=== PATIENT | male | born 1940 | race Caucasian/White ===

== ENCOUNTER 2018-01-28 11:07 | Observation (INO) | payer MEDICARE ==
[2018-01-28] MEDS ORDERED: Sodium Chloride 0.9% 500 ML 500 ML IV SCH (12:15)
[2018-01-28 14:02] LABS: Hematocrit 42.4 % (42-50); Hemoglobin 14.3 gm/dl (12.5-18.0); Mean Cell Volume 92.2 fl (78-100); Mean Corpuscular Hemoglobin 31.1 pg (26-32); Mean Corpuscular Hgb Concent. 33.7 g/dl (32-36); Mean Platelet Volume 11.7 fl (6-9.5); Platelet Count 246 K/mm3 (150-450); Red Cell Distribution Width 14.3 % (11.5-14.0); White Blood Count 8.3 K/mm3 (4.0-10.5)
[2018-01-28] MEDS: Glucophage 500 MG PO SCH (14:20)
[2018-01-28] MEDS: Zestril 5 MG PO SCH (14:20)
--- NOTE | 2018-01-28 15:30 | XRAY ---
Indication: Short of breath. Comparison: August 21, 2014. PA/lateral chest demonstrates new small bibasilar effusions, left greater than right with adjacent infiltrates versus atelectasis. Heart is not enlarged. Bony thorax intact again with minimal degenerative changes.
[2018-01-28 15:36] LABS: ALBUMIN 4.4 g/dL (3.5-5.0); ANION GAP 16.8 MEQ/L (5-15); BILIRUBIN,TOTAL 0.8 mg/dL (0.2-1.3); Calcium 9.3 mg/dL (8.4-10.2); Creatinine 1 1.29 mg/dL (0.66-1.25); Potassium 4.7 mmol/L (3.5-5.1); Total Protein 7.1 g/dL (6.3-8.2)
[2018-01-28] MEDS: Lasix 40 MG/4 ML IV SCH (16:15)
[2018-01-29] MEDS: Lasix 40 MG/4 ML IV SCH (05:02)
[2018-01-29 06:57] LABS: Risk Ratio 5.3
[2018-01-29 07:27] VITALS: O2SAT 97
[2018-01-29] MEDS ORDERED: Toprol-Xl 25MG Tablets PO ONE (09:36)
--- NOTE | 2018-01-29 09:43 | PCM.NOTE ---
Date and Time: 01/29/18937 Subjective Assessment: doing better, no chest pain Shortness of breath is better - Review of Systems Constitutional: No Fever, No Chills Eyes: No Symptoms Ears, Nose, & Throat: No Symptoms Respiratory: No Cough, No Short Of Breath Cardiac: No Chest Pain, No Edema, No Syncope Abdominal/Gastrointestinal: No Abdominal Pain, No Nausea, No Vomiting, No Diarrhea Genitourinary Symptoms: No Dysuria Musculoskeletal: No Back Pain, No Neck Pain Skin: No Rash Neurological: No Dizziness, No Focal Weakness, No Sensory Changes Psychological: No Symptoms Endocrine: No Symptoms Hematologic/Lymphatic: No Symptoms Immunological/Allergic: No Symptoms Objective Exam General Appearance: no apparent distress, alert Neurologic Exam: alert, oriented x 3, cooperative, normal mood/affect, nml cerebellar function, sensation nml, No motor deficits Skin Exam: normal color, warm, dry Eye Exam: PERRL, EOMI, eyes nml inspection Ears, Nose, Throat Exam: normal ENT inspection, pharynx normal, moist mucous membranes Neck Exam: normal inspection, non-tender, supple, full range of motion Respiratory Exam: normal breath sounds, lungs clear, No respiratory distress Cardiovascular Exam: regular rate/rhythm, normal heart sounds, No pulse deficit Gastrointestinal/Abdomen Exam: soft, No tenderness, No mass Extremity Exam: normal inspection, normal range of motion Back Exam: normal inspection, normal range of motion, No CVA tenderness, No vertebral tenderness Male Genitalia Exam: deferred Rectal Exam: deferred OBJECTIVE DATA Vital Signs: Vital Signs - 24 hr Temp Pulse Resp BP Pulse Ox 01/29/18 07:25 97.8 F 64 20 125/59 97 01/29/18 04:30 97.6 F 74 20 120/74 96 01/28/18 23:49 98.1 F 95 H 18 126/76 97 01/28/18 19:18 97.5 F 86 18 138/67 96 01/28/18 16:00 98.2 F 110 H 24 160/77 95 01/28/18 12:06 92 L 01/28/18 11:43 95.7 F 109 H 20 148/97 91 L Pain Assessment - Last Documented Pain Scale Used 0-10 Pain Scale Intake and Output: Intake & Output 01/26/18 01/27/18 01/28/18 01/29/18 11:59 11:59 11:59 11:59 Intake Total 1649 Output Total 1600 Balance 49 Weight 85.6 kg 83.2 kg Lab Results: Accuchecks Date 01/29/18 Date 01/28/18 Date 01/28/18 Date 01/28/18 Time 07:30 Time 21:30 Time 16:30 Time 12:00 Accucheck Value: 141 Accucheck Value: 121 Accucheck Value: 173 Accucheck Value: 140 Lab Results-Last 24 Hours 01/28/18 01/28/18 01/28/18 Range/Units 12:15 12:30 12:55 WBC 8.3 (4.0-10.5) K/mm3 RBC 4.60 (4.1-5.6) M/mm3 Hgb 14.3 (12.5-18.0) gm/dl Hct 42.4 (42-50) % MCV 92.2 (78-100) fl MCH 31.1 (26-32) pg MCHC 33.7 (32-36) g/dl RDW 14.3 H (11.5-14.0) % Plt Count 246 (150-450) K/mm3 MPV 11.7 H (6-9.5) fl Sodium (137-145) mmol/L Potassium (3.5-5.1) mmol/L Chloride (98-107) mmol/L Carbon Dioxide (22-30) mmol/L Anion Gap (5-15) MEQ/L BUN (9-20) mg/dL Creatinine (0.66-1.25) mg/dL Estimated GFR ML/MIN Glucose (74-106) mg/dL Hemoglobin A1c 5.88 (4.5-6.0) % Calcium (8.4-10.2) mg/dL Total Bilirubin (0.2-1.3) mg/dL AST (17-59) U/L ALT (0-50) U/L Alkaline Phosphatase (38-126) U/L Troponin I (0.000-0.034) ng/mL NT-Pro-B Natriuret Pep 8020 H (0-1800) pg/mL Serum Total Protein (6.3-8.2) g/dL Albumin (3.5-5.0) g/dL Triglycerides (30-150) mg/dL Cholesterol (50-200) mg/dL LDL Cholesterol (30-100) mg/dL HDL Cholesterol (40-60) mg/dL Heart Disease Risk Ratio 01/28/18 01/28/18 01/28/18 Range/Units 13:01 13:26 16:15 WBC (4.0-10.5) K/mm3 RBC (4.1-5.6) M/mm3 Hgb (12.5-18.0) gm/dl Hct (42-50) % MCV (78-100) fl MCH (26-32) pg MCHC (32-36) g/dl RDW (11.5-14.0) % Plt Count (150-450) K/mm3 MPV (6-9.5) fl Sodium 135 L (137-145) mmol/L Potassium 4.7 (3.5-5.1) mmol/L Chloride 100 (98-107) mmol/L Carbon Dioxide 24 (22-30) mmol/L Anion Gap 16.8 H (5-15) MEQ/L BUN 23 H (9-20) mg/dL Creatinine 1.29 H (0.66-1.25) mg/dL Estimated GFR 57.3 ML/MIN Glucose 164 H (74-106) mg/dL Hemoglobin A1c (4.5-6.0) % Calcium 9.3 (8.4-10.2) mg/dL Total Bilirubin 0.80 (0.2-1.3) mg/dL AST 31 (17-59) U/L ALT 17 (0-50) U/L Alkaline Phosphatase 75 (38-126) U/L Troponin I 0.040 H* 0.046 H* (0.000-0.034) ng/mL NT-Pro-B Natriuret Pep (0-1800) pg/mL Serum Total Protein 7.1 (6.3-8.2) g/dL Albumin 4.4 (3.5-5.0) g/dL Triglycerides (30-150) mg/dL Cholesterol (50-200) mg/dL LDL Cholesterol (30-100) mg/dL HDL Cholesterol (40-60) mg/dL Heart Disease Risk Ratio 01/28/18 01/29/18 01/29/18 Range/Units 19:10 05:45 05:45 WBC (4.0-10.5) K/mm3 RBC (4.1-5.6) M/mm3 Hgb (12.5-18.0) gm/dl Hct (42-50) % MCV (78-100) fl MCH (26-32) pg MCHC (32-36) g/dl RDW (11.5-14.0) % Plt Count (150-450) K/mm3 MPV (6-9.5) fl Sodium (137-145) mmol/L Potassium (3.5-5.1) mmol/L Chloride (98-107) mmol/L Carbon Dioxide (22-30) mmol/L Anion Gap (5-15) MEQ/L BUN (9-20) mg/dL Creatinine (0.66-1.25) mg/dL Estimated GFR ML/MIN Glucose (74-106) mg/dL Hemoglobin A1c (4.5-6.0) % Calcium (8.4-10.2) mg/dL Total Bilirubin (0.2-1.3) mg/dL AST (17-59) U/L ALT (0-50) U/L Alkaline Phosphatase (38-126) U/L Troponin I 0.064 H* 0.055 H* (0.000-0.034) ng/mL NT-Pro-B Natriuret Pep (0-1800) pg/mL Serum Total Protein (6.3-8.2) g/dL Albumin (3.5-5.0) g/dL Triglycerides 83 (30-150) mg/dL Cholesterol 186 (50-200) mg/dL LDL Cholesterol 134 H (30-100) mg/dL HDL Cholesterol 35 L (40-60) mg/dL Heart Disease Risk Ratio 5.3 Radiology Exams: Radiology Procedures Category Date Time Status CHEST 2 VIEWS (PA AND LAT) Urgent Exams 01/28/18 15:23 Completed ECHO W/2D AND DOPPLER [US] Routine Exams 01/28/18 12:07 Taken RAD/CHEST 2 VIEWS (PA AND LAT) Indication: Short of breath. Comparison: August 21, 2014. PA/lateral chest demonstrates new small bibasilar effusions, left greater than right with adjacent infiltrates versus atelectasis. Heart is not enlarged. Bony thorax intact again with minimal degenerative changes Assessment/Plan (1) Non-ST elevated myocardial infarction (non-STEMI) Current Visit: Yes Status: Acute Assessment & Plan: troponin value in downward trend. no chest pain, will continue JULIA inhibitor, lasix and beta nita and plavix Code(s): I21.4 - NON-ST ELEVATION (NSTEMI) MYOCARDIAL INFARCTION (2) Acute congestive heart failure with left ventricular diastolic dysfunction Current Visit: Yes Status: Acute Assessment & Plan: continue lasix and JULIA inhibitor Code(s): I50.31 - ACUTE DIASTOLIC (CONGESTIVE) HEART FAILURE (3) Type 2 diabetes mellitus Current Visit: Yes Status: Chronic Qualifiers: Diabetes mellitus fdc insulin use: without fdc use Diabetes mellitus complication status: with kidney complications Diabetes mellitus complication detail: with chronic kidney disease Chronic kidney disease stage : stage 2 (mild) Qualified Code(s): E11.22 - Type 2 diabetes mellitus with diabetic chronic kidney disease; N18.2 - Chronic kidney disease, stage 2 (mild) (4) Renal insufficiency Current Visit: Yes Status: Acute
[2018-01-29] MEDS: Zestril 5 MG PO SCH (09:49)
[2018-01-29] MEDS ORDERED: Ecotrin 325 MG PO SCH (10:00)
[2018-01-29] MEDS ORDERED: PLAVIX 75 MG Tablet PO SCH (10:00)
[2018-01-29 12:20] VITALS: BP 110/51; PULSE 75
--- NOTE | 2018-01-29 12:24 | PCM.DS ---
Discharge Summary Date of Admission: 01/28/18 11:43 Admitting Physician: MARU SPRING Primary Care Provider: MARU SPRING Allergies Allergies codeine Adverse Reaction (Verified 01/28/18 12:00) unsteady gait Hospital Summary - Hospital Course Hospital Course: Last Vital Signs Temp 97.8 F 01/29/18 07:25 Pulse 64 01/29/18 07:25 Resp 20 01/29/18 07:25 BP 125/59 01/29/18 07:25 Pulse Ox 97 01/29/18 12:06 Allergies codeine Adverse Reaction (Verified 01/28/18 12:00) unsteady gait Active Medications Aspirin (Ecotrin 325 Mg) 325 mg PO DAILY CARLOS Stop: 02/28/18 09:59 Last Admin: 01/29/18 09:49 Dose: 325 mg Clopidogrel Bisulfate (Plavix 75 Mg Tablet) 75 mg PO DAILY CARLOS Stop: 02/28/18 09:59 Last Admin: 01/29/18 09:49 Dose: 75 mg Furosemide (Lasix 40 Mg/4 Ml) 40 mg IV Q12H CARLOS Stop: 02/27/18 15:59 Last Admin: 01/29/18 05:02 Dose: 40 mg Lisinopril (Zestril 5 Mg) 5 mg PO DAILY CARLOS Stop: 02/27/18 13:59 Last Admin: 01/29/18 09:49 Dose: 5 mg Metformin HCl (Glucophage 500 Mg) 500 mg PO BREAKFAST CARLOS Stop: 02/27/18 13:59 Last Admin: 01/28/18 14:20 Dose: 500 mg Metoprolol Succinate (Toprol-Xl 25mg Tablets) 25 mg PO DAILY CARLOS Stop: 03/01/18 09:59 Intake & Output 01/29/18 01/30/18 11:59 11:59 Intake Total 1649 Output Total 1600 Balance 49 Weight 83.2 kg Orders 01/28/18 12:[address] in Observation ROUTINE 01/28/18 12:06 Bedrest with BRP/BSC TOLERATED IV Insertion STAT Implement Chest Pain Pathway ROUTINE Telemetry PROTOCOL Weight,Daily 0600 Pulse Oximetry CONTINUOUS 01/28/18 12:07 ECHO W/2D AND DOPPLER [US] Routine 01/28/18 12:58 Denzel Conchise, Apply ROUTINE 01/28/18 14:00 Lisinopril 5 mg [Zestril 5 MG] 5 mg PO DAILY Metformin HCl 500 mg [Glucophage 500 MG] 500 mg PO BREAKFAST 01/28/18 16:00 Furosemide 40 mg/4 ml [Lasix 40 MG/4 ML] 40 mg IV Q12H 01/29/18 10:00 Aspirin EC 325 mg [Ecotrin 325 MG] 325 mg PO DAILY Clopidogrel Bisulfate 75 mg [PLAVIX 75 MG Tablet] 75 mg PO DAILY 01/30/18 05:00 EKG ONCE 01/30/18 10:00 Metoprolol Succinate 25 mg Xl* [Toprol-Xl 25MG Tablets] 25 mg PO DAILY 01/31/18 05:00 EKG ONCE Lab Tests 01/28/18 01/28/18 01/28/18 12:15 12:30 12:55 WBC 8.3 RBC 4.60 Hgb 14.3 Hct 42.4 MCV 92.2 MCH 31.1 MCHC 33.7 RDW 14.3 H Plt Count 246 MPV 11.7 H Sodium Potassium Chloride Carbon Dioxide Anion Gap BUN Creatinine Estimated GFR Glucose Hemoglobin A1c 5.88 Calcium Total Bilirubin AST ALT Alkaline Phosphatase Troponin I NT-Pro-B Natriuret Pep 8020 H Serum Total Protein Albumin Triglycerides Cholesterol LDL Cholesterol HDL Cholesterol Heart Disease Risk Ratio 01/28/18 01/28/18 01/28/18 13:01 13:26 16:15 WBC RBC Hgb Hct MCV MCH MCHC RDW Plt Count MPV Sodium 135 L Potassium 4.7 Chloride 100 Carbon Dioxide 24 Anion Gap 16.8 H BUN 23 H Creatinine 1.29 H Estimated GFR 57.3 Glucose 164 H Hemoglobin A1c Calcium 9.3 Total Bilirubin 0.80 AST 31 ALT 17 Alkaline Phosphatase 75 Troponin I 0.040 H* 0.046 H* NT-Pro-B Natriuret Pep Serum Total Protein 7.1 Albumin 4.4 Triglycerides Cholesterol LDL Cholesterol HDL Cholesterol Heart Disease Risk Ratio 01/28/18 01/29/18 01/29/18 19:10 05:45 05:45 WBC RBC Hgb Hct MCV MCH MCHC RDW Plt Count MPV Sodium Potassium Chloride Carbon Dioxide Anion Gap BUN Creatinine Estimated GFR Glucose Hemoglobin A1c Calcium Total Bilirubin AST ALT Alkaline Phosphatase Troponin I 0.064 H* 0.055 H* NT-Pro-B Natriuret Pep Serum Total Protein Albumin Triglycerides 83 Cholesterol 186 LDL Cholesterol 134 H HDL Cholesterol 35 L Heart Disease Risk Ratio 5.3 01/29/18 09:46 WBC RBC Hgb Hct MCV MCH MCHC RDW Plt Count MPV Sodium Potassium Chloride Carbon Dioxide Anion Gap BUN Creatinine Estimated GFR Glucose Hemoglobin A1c Calcium Total Bilirubin AST ALT Alkaline Phosphatase Troponin I 0.042 H* NT-Pro-B Natriuret Pep Serum Total Protein Albumin Triglycerides Cholesterol LDL Cholesterol HDL Cholesterol Heart Disease Risk Ratio - Vitals & Intake/Output Vital Signs: Vital Signs Temperature 97.8 F 01/29/18 07:25 Pulse Rate 64 01/29/18 07:25 Respiratory Rate 20 01/29/18 07:25 Blood Pressure 125/59 01/29/18 07:25 O2 Sat by Pulse Oximetry 97 01/29/18 12:06 Intake & Output: Intake & Output 01/27/18 01/28/18 01/29/18 01/30/18 11:59 11:59 11:59 11:59 Intake Total 1649 Output Total 1600 Balance 49 Weight 85.6 kg 83.2 kg - Lab Result Diagrams: 01/28/18 12:55 01/28/18 13:01 Lab Results-Last 24 Hrs: Accuchecks Date 01/29/18 Date 01/29/18 Date 01/28/18 Date 01/28/18 Time 11:30 Time 07:30 Time 21:30 Time 16:30 Accucheck Value: 160 Accucheck Value: 141 Accucheck Value: 121 Accucheck Value: 173 Lab Results-Last 24 Hours 01/28/18 01/28/18 01/28/18 Range/Units 12:15 12:30 12:55 WBC 8.3 (4.0-10.5) K/mm3 RBC 4.60 (4.1-5.6) M/mm3 Hgb 14.3 (12.5-18.0) gm/dl Hct 42.4 (42-50) % MCV 92.2 (78-100) fl MCH 31.1 (26-32) pg MCHC 33.7 (32-36) g/dl RDW 14.3 H (11.5-14.0) % Plt Count 246 (150-450) K/mm3 MPV 11.7 H (6-9.5) fl Sodium (137-145) mmol/L Potassium (3.5-5.1) mmol/L Chloride (98-107) mmol/L Carbon Dioxide (22-30) mmol/L Anion Gap (5-15) MEQ/L BUN (9-20) mg/dL Creatinine (0.66-1.25) mg/dL Estimated GFR ML/MIN Glucose (74-106) mg/dL Hemoglobin A1c 5.88 (4.5-6.0) % Calcium (8.4-10.2) mg/dL Total Bilirubin (0.2-1.3) mg/dL AST (17-59) U/L ALT (0-50) U/L Alkaline Phosphatase (38-126) U/L Troponin I (0.000-0.034) ng/mL NT-Pro-B Natriuret Pep 8020 H (0-1800) pg/mL Serum Total Protein (6.3-8.2) g/dL Albumin (3.5-5.0) g/dL Triglycerides (30-150) mg/dL Cholesterol (50-200) mg/dL LDL Cholesterol (30-100) mg/dL HDL Cholesterol (40-60) mg/dL Heart Disease Risk Ratio 01/28/18 01/28/18 01/28/18 Range/Units 13:01 13:26 16:15 WBC (4.0-10.5) K/mm3 RBC (4.1-5.6) M/mm3 Hgb (12.5-18.0) gm/dl Hct (42-50) % MCV (78-100) fl MCH (26-32) pg MCHC (32-36) g/dl RDW (11.5-14.0) % Plt Count (150-450) K/mm3 MPV (6-9.5) fl Sodium 135 L (137-145) mmol/L Potassium 4.7 (3.5-5.1) mmol/L Chloride 100 (98-107) mmol/L Carbon Dioxide 24 (22-30) mmol/L Anion Gap 16.8 H (5-15) MEQ/L BUN 23 H (9-20) mg/dL Creatinine 1.29 H (0.66-1.25) mg/dL Estimated GFR 57.3 ML/MIN Glucose 164 H (74-106) mg/dL Hemoglobin A1c (4.5-6.0) % Calcium 9.3 (8.4-10.2) mg/dL Total Bilirubin 0.80 (0.2-1.3) mg/dL AST 31 (17-59) U/L ALT 17 (0-50) U/L Alkaline Phosphatase 75 (38-126) U/L Troponin I 0.040 H* 0.046 H* (0.000-0.034) ng/mL NT-Pro-B Natriuret Pep (0-1800) pg/mL Serum Total Protein 7.1 (6.3-8.2) g/dL Albumin 4.4 (3.5-5.0) g/dL Triglycerides (30-150) mg/dL Cholesterol (50-200) mg/dL LDL Cholesterol (30-100) mg/dL HDL Cholesterol (40-60) mg/dL Heart Disease Risk Ratio 01/28/18 01/29/18 01/29/18 Range/Units 19:10 05:45 05:45 WBC (4.0-10.5) K/mm3 RBC (4.1-5.6) M/mm3 Hgb (12.5-18.0) gm/dl Hct (42-50) % MCV (78-100) fl MCH (26-32) pg MCHC (32-36) g/dl RDW (11.5-14.0) % Plt Count (150-450) K/mm3 MPV (6-9.5) fl Sodium (137-145) mmol/L Potassium (3.5-5.1) mmol/L Chloride (98-107) mmol/L Carbon Dioxide (22-30) mmol/L Anion Gap (5-15) MEQ/L BUN (9-20) mg/dL Creatinine (0.66-1.25) mg/dL Estimated GFR ML/MIN Glucose (74-106) mg/dL Hemoglobin A1c (4.5-6.0) % Calcium (8.4-10.2) mg/dL Total Bilirubin (0.2-1.3) mg/dL AST (17-59) U/L ALT (0-50) U/L Alkaline Phosphatase (38-126) U/L Troponin I 0.064 H* 0.055 H* (0.000-0.034) ng/mL NT-Pro-B Natriuret Pep (0-1800) pg/mL Serum Total Protein (6.3-8.2) g/dL Albumin (3.5-5.0) g/dL Triglycerides 83 (30-150) mg/dL Cholesterol 186 (50-200) mg/dL LDL Cholesterol 134 H (30-100) mg/dL HDL Cholesterol 35 L (40-60) mg/dL Heart Disease Risk Ratio 5.3 01/29/18 Range/Units 09:46 WBC (4.0-10.5) K/mm3 RBC (4.1-5.6) M/mm3 Hgb (12.5-18.0) gm/dl Hct (42-50) % MCV (78-100) fl MCH (26-32) pg MCHC (32-36) g/dl RDW (11.5-14.0) % Plt Count (150-450) K/mm3 MPV (6-9.5) fl Sodium (137-145) mmol/L Potassium (3.5-5.1) mmol/L Chloride (98-107) mmol/L Carbon Dioxide (22-30) mmol/L Anion Gap (5-15) MEQ/L BUN (9-20) mg/dL Creatinine (0.66-1.25) mg/dL Estimated GFR ML/MIN Glucose (74-106) mg/dL Hemoglobin A1c (4.5-6.0) % Calcium (8.4-10.2) mg/dL Total Bilirubin (0.2-1.3) mg/dL AST (17-59) U/L ALT (0-50) U/L Alkaline Phosphatase (38-126) U/L Troponin I 0.042 H* (0.000-0.034) ng/mL NT-Pro-B Natriuret Pep (0-1800) pg/mL Serum Total Protein (6.3-8.2) g/dL Albumin (3.5-5.0) g/dL Triglycerides (30-150) mg/dL Cholesterol (50-200) mg/dL LDL Cholesterol (30-100) mg/dL HDL Cholesterol (40-60) mg/dL Heart Disease Risk Ratio Micro Results-Entire Visit: Accuchecks Date 01/29/18 Date 01/29/18 Date 01/28/18 Date 01/28/18 Time 11:30 Time 07:30 Time 21:30 Time 16:30 Accucheck Value: 160 Accucheck Value: 141 Accucheck Value: 121 Accucheck Value: 173 - Radiology Exams Ordered Rad Exams-Entire Visit: Radiology Procedures Category Date Time Status CHEST 2 VIEWS (PA AND LAT) Urgent Exams 01/28/18 15:23 Completed ECHO W/2D AND DOPPLER [US] Routine Exams 01/28/18 12:07 Taken - Procedures and Test Procedures and Tests throughout Hospitalization: Therapy Orders & Screens 01/28/18 12:06 EKG STAT Comment: Diagnosis: chest pain 01/28/18 21:00 EKG ONCE Comment: Diagnosis: chest pain 01/29/18 05:00 EKG ONCE Comment: Diagnosis: chest pain 01/30/18 05:00 EKG ONCE Comment: Diagnosis: chest pain 01/31/18 05:00 EKG ONCE Comment: Diagnosis: chest pain Discharge Exam General Appearance: no apparent distress, alert Neurologic Exam: alert, oriented x 3, cooperative, normal mood/affect, nml cerebellar function, sensation nml, No motor deficits Skin Exam: normal color, warm, dry Eye Exam: PERRL, EOMI, eyes nml inspection Ears, Nose, Throat Exam: normal ENT inspection, pharynx normal, moist mucous membranes Neck Exam: normal inspection, non-tender, supple, full range of motion Respiratory Exam: normal breath sounds, lungs clear, No respiratory distress Cardiovascular Exam: regular rate/rhythm, normal heart sounds Gastrointestinal/Abdomen Exam: soft, No tenderness, No mass Extremity Exam: normal inspection, normal range of motion Back Exam: normal inspection, normal range of motion, No CVA tenderness, No vertebral tenderness Male Genitalia Exam: deferred Rectal Exam: deferred Final Diagnosis/Problem List - Final Discharge Diagnosis/Problem (1) Non-ST elevated myocardial infarction (non-STEMI) Current Visit: Yes Status: Acute Assessment & Plan: resolved (2) Acute congestive heart failure with left ventricular diastolic dysfunction Current Visit: Yes Status: Acute Assessment & Plan: stable (3) Type 2 diabetes mellitus Current Visit: Yes Status: Chronic (4) Renal insufficiency Current Visit: Yes Status: Acute - Discharge Discharge Date: 01/29/18 Disposition: Home, Self-Care Condition: Stable Prescriptions: New Aspirin EC 325 mg [Ecotrin 325 MG] 325 mg PO DAILY #30 tablet.ec Furosemide 20 mg [Lasix 20 mg] 20 mg PO DAILY 3 Days #30 tablet Clopidogrel Bisulfate 75 mg [PLAVIX 75 MG Tablet] 75 mg PO DAILY 30 Days #30 tablet Metoprolol Succinate 25 mg Xl* [Toprol-Xl 25MG Tablets] 25 mg PO DAILY 30 Days #30 tab Continue Metformin HCl 500 mg PO DAILY #30 tablet Lisinopril 5 mg [Zestril 5 MG] 5 mg PO DAILY 30 Days #30 tablet Follow up with: MARU SPRING MD [Primary Care Provider] - 1 Week
[2018-01-30] MEDS ORDERED: Toprol-Xl 25MG Tablets PO SCH (10:00)
--- NOTE | 2018-01-31 13:01 | ECHO ---
Transthoracic echocardiographic examination and color Doppler was done on 01/28/2018. INDICATION: Chest pain. IMPRESSION: 1) REGIONAL WALL MOTION ABNORMALITY WITH SEVERE HYPOKINESIA OF THE ANTEROSEPTAL AND DISTAL LATERAL WALL AND INFERIOR WALL. ESTIMATED GLOBAL LEFT VENTRICULAR EJECTION FRACTION OF 30%. 2) MODERATE MITRAL REGURGITATION. 3) MODERATE TRICUSPID REGURGITATION. RIGHT VENTRICULAR SYSTOLIC PRESSURE OF 67 MM OF MERCURY SUGGESTIVE OF MODERATE TO SEVERE PULMONARY HYPERTENSION. 4) TRACE AORTIC REGURGITATION. 5) LEFT ATRIAL ENLARGEMENT. 6) LEFT VENTRICULAR DIASTOLIC DYSFUNCTION. The left ventricle is visualized and demonstrated regional wall motion abnormality with severe hypokinesia to akinesia of the apex. The distal septum and also lateral wall and inferior wall. Estimated global left ventricular ejection fraction around 30%. The left ventricular thickness appears to be normal. The mitral valve is seen and this opens adequately. There is moderate mitral regurgitation. Left atrium is mildly enlarged. Tissue Doppler study of the lateral mitral annulus suggestive of left ventricular diastolic dysfunction. The aortic valve opens adequately. There is trace aortic regurgitation. Right side chambers are normal. There is moderate tricuspid regurgitation. The right ventricular systolic pressure of 67 mm of Mercury suggestive of moderate to severe pulmonary hypertension.
== END 2018-01-29 13:10 | disposition home or self-care (01) ==
LOC: MED SURG 11:43
PROVIDERS: ADMIT General Practice; ATTEND General Practice
DX: I21.4 Non-ST elevation (NSTEMI) myocardial infarction (principal); I50.31 Acute diastolic (congestive) heart failure; R07.9 Chest pain, unspecified; R06.02 Shortness of breath; E11.22 Type 2 diabetes mellitus with diabetic chronic kidney disease; N18.2 Chronic kidney disease, stage 2 (mild)
CPT/HCPCS: 36415; 71046; 80053; 80061; 82962; 83036; 83721; 83880; 84484; 85027; 93005; 93268; 93306; J1940; A9270-GY; G0378

== ENCOUNTER 2018-12-16 13:41 | Emergency (ER) | payer OTHER, MEDICARE ==
[2018-12-16 14:06] VITALS: PULSE 60; O2SAT 99
[2018-12-16 14:37] VITALS: BP 136/64
--- NOTE | 2018-12-16 14:39 | ERPHSYRPT ---
- History of Present Illness Time Seen by Provider: 12/16/18 14:10 Source: patient, family Exam Limitations: no limitations Patient Subjective Stated Complaint: pt stated he has wound to left foot since July 2018, pt states that he has been to foot doctor 3 times in the last 9 weeks , pt states that his culture came back positive and he needs to be on IV antibotics Triage Nursing Assessment: pt ambulated into the ER, pt has wound to left foot measuring 1 cm x 1.5 cm, wound has foul smell to it, wound is covered in medication, vitals are wnl Physician History: 78 y/o diabetic white [facility] presents with open poorly healing infected left foot ulcer that has been evaluated by traditional maori health practitioner at [facility][1] since July 2018. Dr. Guerra recently took wound culture. pt has failed outpt tx on Augmentin. Dr. Guerra recommended inpatient IV antibiotics. pt prefers inpt here at [facility]. Pt and spouse are aware Dr. Spring is admitting doctor today. They are aware we do not have an infectious dz specialist or traditional maori health practitioner on staff here. [facility] in discharge planning and pt may be admitted here and they would cover charges as discussed between them and this discussion was relayed to pt and spouse. Timing/Duration: other (chronic) Severity: mild Associated Symptoms: denies symptoms Allergies/Adverse Reactions: codeine Adverse Reaction (Verified 12/16/18 14:06) unsteady gait Home Medications: Amoxicillin/Potassium Clav [Amox Tr-K Clv 875-125 mg Tab] 875 mg PO BID [History] Apixaban [Eliquis] 5 mg PO BID 12/16/18 [History] Aspirin 81 mg PO DAILY 12/16/18 [History] Bumetanide 2 mg PO DAILY 12/16/18 [History] Carvedilol 3.125 mg PO BID 12/16/18 [History] Losartan Potassium 25 mg PO DAILY 12/16/18 [History] Pravastatin Sodium 20 mg PO DAILY 12/16/18 [History] Hx Tetanus, Diphtheria Vaccination/Date Given: No Hx Influenza Vaccination/Date Given: No Hx Pneumococcal Vaccination/Date Given: No - Review of Systems Constitutional: No Symptoms Eyes: No Symptoms Ears, Nose, & Throat: No Symptoms Respiratory: No Symptoms Cardiac: No Symptoms Abdominal/Gastrointestinal: No Symptoms Genitourinary Symptoms: No Symptoms Musculoskeletal: No Symptoms Skin: No Symptoms Neurological: No Symptoms Psychological: No Symptoms Endocrine: No Symptoms Hematologic/Lymphatic: No Symptoms Immunological/Allergic: No Symptoms All Other Systems: Reviewed and Negative - Past Medical History Pertinent Past Medical History: Yes Neurological History: No Pertinent History ENT History: Other Cardiac History: Congestive Heart Failure, Hypertension Respiratory History: CHF, Pneumonia, Other Endocrine Medical History: Diabetes Type II Musculoskeletal History: No Pertinent History GI Medical History: No Pertinent History History: No Pertinent History Psycho-Social History: No Pertinent History Male Reproductive Disorders: No Pertinent History - Past Surgical History Past Surgical History: Yes Neuro Surgical History: No Pertinent History Cardiac: No Pertinent History, CABG Respiratory: No Pertinent History Gastrointestinal: No Pertinent History Genitourinary: No Pertinent History Musculoskeletal: No Pertinent History Male Surgical History: No Pertinent History Other Surgical History: / - Social History Smoking Status: Former smoker How long have you smoked: 9 YEARS Exposure to second hand smoke: No Drug Use: none Patient Lives Alone: No - Nursing Vital Signs Nursing Vital Signs: Initial Vital Signs Temperature 97.5 F 12/16/18 13:47 Pulse Rate 60 12/16/18 13:47 Respiratory Rate 20 12/16/18 13:47 Blood Pressure 136/69 12/16/18 13:47 O2 Sat by Pulse Oximetry 99 12/16/18 13:47 Pain Scale Pain Intensity 2 - Physical Exam General Appearance: no apparent distress, alert Eye Exam: PERRL/EOMI, eyes nml inspection Ears, Nose, Throat Exam: normal ENT inspection, moist mucous membranes Neck Exam: normal inspection, non-tender, supple, full range of motion Respiratory Exam: normal breath sounds, lungs clear, airway intact, No chest tenderness, No respiratory distress Gastrointestinal/Abdomen Exam: No tenderness Rectal Exam: not done Back Exam: normal inspection, normal range of motion, No CVA tenderness, No vertebral tenderness Extremity Exam: other (left foot open foot ulcer 2cm diameter. silvadene ointment present. 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 they prefer to go to [facility][1] directly. they are not mad at us. they prefer to go to [facility] because their traditional maori health practitioner is there as is an infectious dz physician. they are signing a refusal of tx/AMA form 12/16/18 15:09 Counseled pt/family regarding: diagnosis - Departure Departure Disposition: AMA Clinical Impression: Diabetic infection of left foot Condition: Stable Critical Care Time: No Referrals: MARU SPRING MD [Primary Care Provider] -
== END 2018-12-16 15:12 | disposition left against medical advice (07) ==
LOC: ED 13:41
DX: E11.621 Type 2 diabetes mellitus with foot ulcer (principal); L08.9 Local infection of the skin and subcutaneous tissue, unspecified; Z79.01 Long term (current) use of anticoagulants; Z79.899 Other long term (current) drug therapy; I10 Essential (primary) hypertension; I50.9 Heart failure, unspecified
CPT/HCPCS: 99283

== ENCOUNTER 2025-02-21 15:53 | Inpatient (IN) | payer MEDICARE ==
[2025-02-21] MEDS ORDERED: TYLENOL 325 MG PO PRN (18:11)
--- NOTE | 2025-02-21 18:16 | PCM.HP ---
History of Present Illness - Chief Complaint Chief Complaint: diabetic left foot infection Date: 02/21/25 History of Present Illness: is a 85-year-old male with a history of CHF, hypertension, type II diabetes mellitus, and prior CABG who was scheduled for outpatient IV antibiotics via his PICC line for diabetic left foot infection. He was evaluated by Dr. Burrows from podiatry, who recommended surgical intervention tomorrow for gangrene. Per Dr. Heard request, the patient was started on vancomycin, Zosyn, and clindamycin. Outpatient labs revealed a white blood cell count of 16, an anion gap of 19.3, and creatinine of 2.78, consistent with acute on chronic kidney failure based on prior results. The patient reports a fall last night, during which he injured his right elbow, now with a large bruise and wrapped arm. He denies any concerns with ROM. He also struck his head but denies loss of consciousness or injury. He attributes the fall to weakness related to his ongoing left foot infection. At present, he denies any additional concerns or pain. - Review of Systems Constitutional: Weakness, No Fever, No Chills Eyes: No Symptoms Ears, Nose, & Throat: No Symptoms Respiratory: No Cough, No Short Of Breath Cardiac: No Chest Pain, No Edema, No Syncope Abdominal/Gastrointestinal: No Abdominal Pain, No Nausea, No Vomiting, No Diarrhea Genitourinary Symptoms: No Dysuria Musculoskeletal: Fall, No Back Pain, No Neck Pain Skin: Skin Lesions (right elbow bruise, left foot infection- wrapped), No Rash Neurological: No Dizziness, No Focal Weakness, No Sensory Changes Psychological: No Symptoms Endocrine: No Symptoms Hematologic/Lymphatic: No Symptoms Immunological/Allergic: No Symptoms Medications & Allergies Home Medications: Home Medication List Apixaban [Eliquis] 5 mg PO BID 12/16/18 [History Confirmed 01/22/25] Aspirin 81 mg PO DAILY 12/16/18 [History Confirmed 01/22/25] Bumetanide 2 mg PO DAILY 12/16/18 [History Confirmed 01/22/25] Losartan Potassium 25 mg PO DAILY 12/16/18 [History Confirmed 01/22/25] Pravastatin Sodium 20 mg PO DAILY 12/16/18 [History Confirmed 01/22/25] Empagliflozin [Jardiance] 25 mg PO DAILY 01/19/25 [History Confirmed 01/22/25] HydrALAzine HCL 25 MG TAB [Apresoline 25 MG TABLET] 25 mg PO DAILY 01/19/25 [History Confirmed 01/22/25] Allergies/Adverse Reactions: Allergies Allergy/AdvReac Type Severity Reaction Status Date / Time codeine AdvReac Verified 02/21/25 13:00 tamsulosin AdvReac Verified 02/21/25 13:01 - Past Medical History Past Medical History: Yes Neurological History: TIA ENT History: Other Cardiac History: Congestive Heart Failure, Hypertension Respiratory History: No Pertinent History Endocrine Medical History: Diabetes Type II, Other Musculoskelatal History: No Pertinent History GI Medical History: No Pertinent History History: Renal Disease Pyscho-Social History: No Pertinent History Male Reproductive Disorders: No Pertinent History Comment: CABG x3, anemia - Past Surgical History Past Surgical History: Yes Neuro Surgical History: No Pertinent History Cardiac History: CABG Respiratory Surgery: No Pertinent History GI Surgical History: No Pertinent History Genitourinary Surgical Hx: No Pertinent History Musculskeletal Surgical Hx: No Pertinent History Male Surgical History: No Pertinent History Other Surgical History: / Significant Family History: no pertinent family hx - Social History Smoking Status: Former smoker How long have you smoked: 9 YEARS Exposure to second hand smoke: No Alcohol: None Drug Use: none - Physical Exam General Appearance: no apparent distress, alert Neurologic Exam: alert, oriented x 3, cooperative, normal mood/affect, nml cerebellar function, nml station & gait, sensation nml, motor weakness, abnormal gait, No motor deficits Eye Exam: PERRL/EOMI, eyes nml inspection Ears, Nose, Throat Exam: normal ENT inspection, TMs normal, pharynx normal, moist mucous membranes Neck Exam: normal inspection, non-tender, supple, full range of motion Respiratory Exam: normal breath sounds, lungs clear, No respiratory distress Cardiovascular Exam: regular rate/rhythm, normal heart sounds, normal peripheral pulses, edema (BLLE) Gastrointestinal/Abdomen Exam: soft, normal bowel sounds, No tenderness, No mass Back Exam: normal inspection, normal range of motion, No CVA tenderness, No vertebral tenderness Extremity Exam: normal inspection, normal range of motion, pelvis stable Skin Exam: normal color, warm, dry, No rash Lymphatic Exam: No adenopathy Assessment/Plan (1) Diabetic infection of left foot Current Visit: No Status: Acute Assessment & Plan: - NPO at midnight - Podiatry consult placed - Procedure with Dr. Burrows in AM in OR - Left foot XR -02/21 3 nonweightbearing views left foot demonstrates 1st toe soft tissue swelling with subcutaneous emphysema worrisome for gas-forming infection. Base distal 1st phalanx demonstrates moth-eaten appearance laterally favoring osteomyelitis. Elsewhere osteopenia, moderate 1st MTP bunion deformity, mild 1st MTP periarticular erosions as seen with gout, tiny posterior heel spur, and moderate scattered vascular calcifications. - Vancomycin, Zosyn, Clindamycin per podiatry orders - CBC, CMP reviewed - WBC 16 - BC x2 pending- completed OP 02/21 - Wound culture OP 02/21 completed in podiatry office - Pt has PICC in place and was receiving OP antibiotics IV Code(s): E11.628 - TYPE 2 DIABETES MELLITUS WITH OTHER SKIN COMPLICATIONS; L08.9 - LOCAL INFECTION OF THE SKIN AND SUBCUTANEOUS TISSUE, UNSP (2) Acute on chronic renal failure Current Visit: Yes Status: Acute Assessment & Plan: - Creat 2.78, baseline 1.68 - NS @ 50 ml/hr- gentle hydration d/t hx of CHF Code(s): N17.9 - ACUTE KIDNEY FAILURE, UNSPECIFIED; N18.9 - CHRONIC KIDNEY DISEASE, UNSPECIFIED (3) Dehydration Current Visit: Yes Status: Acute Assessment & Plan: -IVF - Anion gap 19.3- trend Code(s): E86.0 - DEHYDRATION (4) Type 2 diabetes mellitus Current Visit: No Status: Chronic Qualifiers: Diabetes mellitus halfway insulin use: without terminal system operator use Diabetes mellitus complication status: with kidney complications Diabetes mellitus complication detail: with chronic kidney disease Chronic kidney disease stage: stage 2 (mild) Qualified Code(s): E11.22 - Type 2 diabetes mellitus with diabetic chronic kidney disease; N18.2 - Chronic kidney disease, stage 2 (mild) Assessment & Plan: - Accuchecks AC/HS - Humalog S/S - A1C (5) Fall Current Visit: Yes Status: Acute Assessment & Plan: - Ground level fall - 2:2 weakness - Pt/OT Eval - Possible placement need - Right elbow bruise- no ROM concern - No LOC - CK non-concerning Code(s): W19.XXXA - UNSPECIFIED FALL, INITIAL ENCOUNTER (6) CHF (congestive heart failure) Current Visit: Yes Status: Chronic Assessment & Plan: - BNP in AM - Hold BUMEX for now d/t JOAN - No current echo to review - Follows Dr. Sands with cardiology VTE: SCD RLE PPI: Protonix Next of KIN: D/C plan: per podiatry Plan of care time> 52 minutes Code(s): I50.9 - HEART FAILURE, UNSPECIFIED
[2025-02-21] MEDS: CLINDAMYCIN-D5W 600 MG/50 ML*** 600 MG/50 ML BAG IV SCH (22:58)
[2025-02-21] MEDS ORDERED: PIPERACILLIN/TAZOBACTAM IV ONE (23:29)
[2025-02-22] MEDS ORDERED: PIPERACILLIN/TAZOBACTAM IV ONE (04:44)
[2025-02-22 05:02] LABS: Hematocrit 28.5 % (40.1-51.0); Hemoglobin 9.2 g/dL (13.7-17.5); Mean Corpuscular Hemoglobin 30.5 pg (25.7-32.2); Mean Corpuscular Hgb Concent. 32.3 g/dL (32.3-36.5); Platelet Count 212 x10^3/uL (163-337); Red Blood Count 3.02 x10^6/uL (4.63-6.08); White Blood Count 10.9 x10^3/uL (4.23-9.07)
[2025-02-22 05:26] LABS: Calcium 8.3 mg/dL (8.4-10.2); Carbon Dioxide 21.0 mmol/L (22-30); Creatinine 1 2.58 mg/dL (0.66-1.25); EST GLOMERULAR FILTRATION RATE 23.5 ML/MIN; Glucose 126.0 mg/dL (74-106); Potassium 4.1 mmol/L (3.5-5.1); SGOT/AST 29.0 U/L (17-59); SGPT/ALT 22.0 U/L (0-50); Total Protein 6.0 g/dL (6.3-8.2)
[2025-02-22] MEDS ORDERED: Sensorcaine 0.25% 10 ML ONE (06:45)
[2025-02-22] MEDS ORDERED: Xylocaine 1% Vial 30 ML PF IJ ONE (06:46)
[2025-02-22] MEDS ORDERED: Marcaine Mpf 0.5% Vial 30 Ml ONE (07:04)
[2025-02-22] MEDS ORDERED: propofoL IV ONE (07:10)
[2025-02-22] MEDS ORDERED: SUBLIMAZE 100 MCG/2 ML ONE (07:11)
[2025-02-22] MEDS: VANCOCIN 500 MG VIAL*** 500 MG in Sodium Chloride 100ML MINI-BAG PLUS 100 ML IV SCH (10:32)
[2025-02-22] MEDS: PHARMACY DOSING REQUIRED: VANCOMYCIN IV STA (10:57)
[2025-02-22] MEDS: Protonix 20MG Tablet PO SCH (15:06)
--- NOTE | 2025-02-22 15:59 | PCM.NOTE ---
Date and Time: 02/22/25 1553 Subjective Assessment: 02/21/25 is a 85-year-old male with a history of CHF, hypertension, type II diabetes mellitus, and prior CABG who was scheduled for outpatient IV antibiotics via his PICC line for diabetic left foot infection. He was evaluated by Dr. Burrows from podiatry, who recommended surgical intervention tomorrow for gangrene. Per Dr. Heard request, the patient was started on vancomycin, Zosyn, and clindamycin. Outpatient labs revealed a white blood cell count of 16, an anion gap of 19.3, and creatinine of 2.78, consistent with acute on chronic kidney failure based on prior results. The patient reports a fall last night, during which he injured his right elbow, now with a large bruise and wrapped arm. He denies any concerns with ROM. He also struck his head but denies loss of consciousness or injury. He attributes the fall to weakness related to his ongoing left foot infection. At present, he denies any additional concerns or pain. 02/22/25 The patient is resting in bed on postoperative day one following left foot surgery. His white blood cell count has improved to 10.9 from 16.1, and hemo globin remains stable at 9.2. He continues on Zosyn, clindamycin, and vancomycin per podiatry recommendations. Normal saline is maintained at 50 mL/hr, with creatinine improved to 2.58 from 2.78, though baseline is 1.68. He experienced a temperature of 99.5 overnight and again this morning, for which Tylenol was administered for both fever and pain. Home medications have been resumed, with the exception of Lasix, which is held due to acute kidney injury. A skin tear on the right wrist was noted today and treated with Steri-Strips by nursing staff. The patient currently denies any further concerns. Per podiatry orders, a PICC line will be placed prior to discharge. - Review of Systems Constitutional: No Fever, No Chills Eyes: No Symptoms Ears, Nose, & Throat: No Symptoms Respiratory: No Cough, No Short Of Breath Cardiac: No Chest Pain, No Edema, No Syncope Abdominal/Gastrointestinal: No Abdominal Pain, No Nausea, No Vomiting, No Diarrhea Genitourinary Symptoms: No Dysuria Musculoskeletal: Other (LLE wrapped post op surgery), No Back Pain, No Neck Pain Skin: Skin Lesions (right wrist skin tear), No Rash Neurological: No Dizziness, No Focal Weakness, No Sensory Changes Psychological: No Symptoms Endocrine: No Symptoms Hematologic/Lymphatic: No Symptoms Immunological/Allergic: No Symptoms Objective Exam General Appearance: no apparent distress, alert Neurologic Exam: alert, oriented x 3, cooperative, normal mood/affect, nml cerebellar function, sensation nml, No motor deficits Skin Exam: normal color, warm, dry, other (skin tear right wrist) Eye Exam: PERRL, EOMI, eyes nml inspection Ears, Nose, Throat Exam: normal ENT inspection, pharynx normal, moist mucous membranes Neck Exam: normal inspection, non-tender, supple, full range of motion Respiratory Exam: normal breath sounds, lungs clear, No respiratory distress Cardiovascular Exam: regular rate/rhythm, normal heart sounds Gastrointestinal/Abdomen Exam: soft, No tenderness, No mass Extremity Exam: normal inspection, normal range of motion, limited range of motion (LLE wound- wrapped) Back Exam: normal inspection, normal range of motion, No CVA tenderness, No v ertebral tenderness Male Genitalia Exam: deferred Rectal Exam: deferred Objective Data Vital Signs: Vital Signs - 24 hr Temp Pulse Resp BP Pulse Ox 02/22/25 15:27 81 18 123/57 96 02/22/25 11:35 90 18 121/58 96 02/22/25 11:05 97 F 84 18 116/57 96 02/22/25 10:50 97 F 81 18 108/58 94 L 02/22/25 07:13 99.5 F 91 H 17 111/56 96 02/22/25 07:05 99.5 F 91 H 17 111/56 96 02/22/25 06:21 99.5 F 91 H 17 109/55 96 02/22/25 03:51 98.2 F 90 16 109/55 91 L 02/22/25 00:00 98.7 F 94 H 16 105/59 92 L 02/21/25 17:16 97.9 F 101 H 168/65 96 Intake and Output: Intake & Output 02/20/25 02/21/25 02/22/25 02/23/25 11:59 11:59 11:59 11:59 Intake Total 360 240 Output Total 100 Balance 260 240 Weight 71.9 kg Lab Results: Lab Results-Last 24 Hours 02/21/25 02/22/25 02/22/25 Range/Units Unknown 04:27 04:27 WBC 10.9 H (4.23-9.07) x10^3/uL RBC 3.02 L (4.63-6.08) x10^6/uL Hgb 9.2 L (13.7-17.5) g/dL Hct 28.5 L (40.1-51.0) % MCV 94.4 H (79.0-92.2) fL MCH 30.5 (25.7-32.2) pg MCHC 32.3 (32.3-36.5) g/dL RDW 19.3 H (11.6-14.4) % Plt Count 212 (163-337) x10^3/uL MPV 10.9 (9.4-12.4) fL Sodium 137 (135-145) mmol/L Potassium 4.1 (3.5-5.1) mmol/L Chloride 106 (98-107) mmol/L Carbon Dioxide 21 L (22-30) mmol/L Anion Gap 14.7 (5-15) MEQ/L BUN 68 H (9-20) mg/dL Creatinine 2.58 H (0.66-1.25) mg/dL Estimated GFR 23.5 ML/MIN Glucose 126 H (74-106) mg/dL POC Glucometer (74 to 106) mg/dL Hemoglobin A1c 6.29 H (4.5-6.0) % Calcium 8.3 L (8.4-10.2) mg/dL Total Bilirubin 0.80 (0.2-1.3) mg/dL AST 29 (17-59) U/L ALT 22 (0-50) U/L Alkaline Phosphatase 97 (38-126) U/L NT-Pro-B Natriuret Pep 13222 (<300) pg/mL Serum Total Protein 6.0 L (6.3-8.2) g/dL Albumin 3.1 L (3.5-5.0) g/dL 02/22/25 02/22/25 02/22/25 Range/Units 04:35 06:31 11:23 WBC (4.23-9.07) x10^3/uL RBC (4.63-6.08) x10^6/uL Hgb (13.7-17.5) g/dL Hct (40.1-51.0) % MCV (79.0-92.2) fL MCH (25.7-32.2) pg MCHC (32.3-36.5) g/dL RDW (11.6-14.4) % Plt Count (163-337) x10^3/uL MPV (9.4-12.4) fL Sodium (135-145) mmol/L Potassium (3.5-5.1) mmol/L Chloride (98-107) mmol/L Carbon Dioxide (22-30) mmol/L Anion Gap (5-15) MEQ/L BUN (9-20) mg/dL Creatinine (0.66-1.25) mg/dL Estimated GFR ML/MIN Glucose (74-106) mg/dL POC Glucometer 138 H 123 H 158 H (74 to 106) mg/dL Hemoglobin A1c (4.5-6.0) % Calcium (8.4-10.2) mg/dL Total Bilirubin (0.2-1.3) mg/dL AST (17-59) U/L ALT (0-50) U/L Alkaline Phosphatase (38-126) U/L NT-Pro-B Natriuret Pep (<300) pg/mL Serum Total Protein (6.3-8.2) g/dL Albumin (3.5-5.0) g/dL Medications: Medications Generic Name Dose Route Start Last Admin Trade Name Freq PRN Reason Stop Dose Admin Acetaminophen 650 mg 02/21/25 18:11 Acetaminophen 325 Mg Tablet PO 03/23/25 18:10 Q6H PRN PRN PAIN, FEVER, HEADACHE Sodium Chloride 1,000 mls @ 50 mls/hr 02/21/25 18:15 02/21/25 22:58 Sodium Chloride 0.9% 1000 Ml IV 03/23/25 18:14 50 mls/hr .Q20H CARLOS Administration Clindamycin HCl/Dextrose 600 mg in 50 mls @ 100 mls/hr 02/21/25 22:00 02/22/25 15:00 Clindamycin-D5w 600 Mg/50 Ml IV 03/23/25 21:59 100 mls/hr Q8HT CARLOS Administration Piperacillin Sod/Tazobactam 100 mls @ 200 mls/hr 02/22/25 12:00 02/22/25 13:23 Sod 3.375 gm/ Sodium Chloride IV 02/25/25 11:59 200 mls/hr Q6HT CARLOS Administration Vancomycin HCl 500 mg/ Sodium 100 mls @ 100 mls/hr 02/22/25 10:00 02/22/25 10:32 Chloride IV 03/24/25 09:59 100 mls/hr DAILY CARLOS Administration Insulin Human Lispro 0 unit 02/21/25 18:11 Insulin Lispro 1 Unit SQ 03/23/25 18:10 UD PRN HYPERGLYCEMIA Pantoprazole Sodium 20 mg 02/22/25 10:00 02/22/25 15:06 Pantoprazole 20 Mg Tab PO 03/24/25 09:59 20 mg DAILY CARLOS Administration Discontinued Medications Generic Name Dose Route Start Last Admin Trade Name Freq PRN Reason Stop Dose Admin Bupivacaine HCl Confirm 02/22/25 06:45 Bupivacaine Hcl 2.5 Mg/Ml 10 Ml Administered 02/22/25 06:46 Dose 10 ml .ROUTE .STK-MED ONE Bupivacaine HCl Confirm 02/22/25 07:04 Bupivacaine Hcl/Pf 150 Mg/30 Ml Vial Administered 02/22/25 07:05 Dose 150 mg .ROUTE .STK-MED ONE Fentanyl Citrate Confirm 02/22/25 07:11 Fentanyl Citrate 100 Mcg/2 Ml* Vial Administered 02/22/25 07:12 Dose 100 mcg .ROUTE .STK-MED ONE Piperacillin Sod/Tazobactam 100 mls @ 200 mls/hr 02/22/25 00:00 02/22/25 05:38 Sod 4.5 gm/ Sodium Chloride IV 03/24/25 00:00 200 mls/hr Q6HT CARLOS Administration Sodium Chloride Confirm 02/21/25 23:29 Sodium Chloride 0.9% Administered 02/21/25 23:30 Dose 100 mls @ ud .ROUTE .STK-MED ONE Sodium Chloride Confirm 02/22/25 04:44 Sodium Chloride 0.9% Administered 02/22/25 04:45 Dose 100 mls @ ud .ROUTE .STK-MED ONE Lidocaine HCl Confirm 02/22/25 06:46 Lidocaine Hcl/Pf 1 % 30 Ml Pf Sdv Administered 02/22/25 06:47 Dose 30 ml IJ .STK-MED ONE Non-Formulary Medication 1 each 02/21/25 18:10 02/22/25 10:57 Pharmacy Dose Request: Vancomycin 1 Each IV 02/21/25 18:11 Not Given STAT STA Piperacillin Sod/Tazobactam Sod Confirm 02/21/25 23:29 Piperacillin/Tazobactam Sodium 4.5 Gm Vial Administered 02/21/25 23:30 Dose 4.5 gm IV .STK-MED ONE Piperacillin Sod/Tazobactam Sod Confirm 02/22/25 04:44 Piperacillin/Tazobactam Sodium 4.5 Gm Vial Administered 02/22/25 04:45 Dose 4.5 gm IV .STK-MED ONE Propofol Confirm 02/22/25 07:10 Propofol 200 Mg/20 Ml Vial Administered 02/22/25 07:11 Dose 200 mg IV .STK-MED ONE Multi-Disciplinary Progress Notes: Multi-Disciplinary Progress Notes 02/22/25 07:59 Pharmacy Note by Juan Miguel Kenney Vancomycin dosed at 500mg iv q24h. Will review creatinine tomorrow and order trough level. Initialized on 02/22/25 07:59 - END OF NOTE 02/22/25 07:58 Pharmacy Note by Juan Miguel Kenney Zosyn dose decreased to 3.375gm per renal dosing policy. Estimated crcl is 20ml/min. Initialized on 02/22/25 07:58 - END OF NOTE Assessment/Plan (1) Diabetic infection of left foot Current Visit: No Status: Acute Code(s): E11.628 - TYPE 2 DIABETES MELLITUS WITH OTHER SKIN COMPLICATIONS; L08.9 - LOCAL INFECTION OF THE SKIN AND SUBCUTANEOUS TISSUE, UNSP (2) Acute on chronic renal failure Current Visit: Yes Status: Acute Code(s): N17.9 - ACUTE KIDNEY FAILURE, UNSPECIFIED; N18.9 - CHRONIC KIDNEY DISEASE, UNSPECIFIED (3) Dehydration Current Visit: Yes Status: Acute Code(s): E86.0 - DEHYDRATION (4) Type 2 diabetes mellitus Current Visit: No Status: Chronic Qualifiers: Diabetes mellitus fpc insulin use: without fpc use Diabetes mellitus complication status: with kidney complications Diabetes mellitus complication detail: with chronic kidney disease Chronic kidney disease stage: stage 2 (mild) Qualified Code(s): E11.22 - Type 2 diabetes mellitus with diabetic chronic kidney disease; N18.2 - Chronic kidney disease, stage 2 (mild) (5) Fall Current Visit: Yes Status: Acute Code(s): W19.XXXA - UNSPECIFIED FALL, INITIAL ENCOUNTER (6) CHF (congestive heart failure) Current Visit: Yes Status: Chronic Assessment & Plan: (1) Diabetic infection of left foot Current Visit: No Status: Acute Assessment & Plan: - NPO at midnight - Podiatry consult placed - Procedure with Dr. Burrows in AM in OR - Left foot XR -02/21 3 nonweightbearing views left foot demonstrates 1st toe soft tissue swelling with subcutaneous emphysema worrisome for gas-forming infection. Base distal 1st phalanx demonstrates moth-eaten appearance laterally favoring osteomyelitis. Elsewhere osteopenia, moderate 1st MTP bunion deformity, mild 1st MTP periarticular erosions as seen with gout, tiny posterior heel spur, and moderate scattered vascular calcifications. - Vancomycin, Zosyn, Clindamycin per podiatry orders - CBC, CMP reviewed - WBC 16 - BC x2 pending- completed OP / - Wound culture OP 12/ completed in podiatry office 02/22 - PICC line to be placed and will be receiving OP antibiotics IV- this a correction from yesterday as thought he already had a picc line in place. - POD #1 from left foot surgery - Podiatry note pending as to what procedure was actually completed. - CBC, CMP reviewed - WBC 10.9 - Continue antibiotics - Temp 99.5 all night- tylenol PRN - Probiotics Code(s): E11.628 - TYPE 2 DIABETES MELLITUS WITH OTHER SKIN COMPLICATIONS; L08.9 - LOCAL INFECTION OF THE SKIN AND SUBCUTANEOUS TISSUE, UNSP (2) Acute on chronic renal failure Current Visit: Yes Status: Acute Assessment & Plan: - Creat 2.78, baseline 1.68 - NS @ 50 ml/hr- gentle hydration d/t hx of CHF 02/22 - Creat 2.58, improving - Hold Bumex - IVF Code(s): N17.9 - ACUTE KIDNEY FAILURE, UNSPECIFIED; N18.9 - CHRONIC KIDNEY DISEASE, UNSPECIFIED (3) Dehydration Current Visit: Yes Status: Acute Assessment & Plan: -IVF - Anion gap 19.3- trend Code(s): E86.0 - DEHYDRATION (4) Type 2 diabetes mellitus Current Visit: No Status: Chronic Qualifiers: Diabetes mellitus fpc insulin use: without fpc use Diabetes mellitus complication status: with kidney complications Diabetes mellitus complication detail: with chronic kidney disease Chronic kidney disease stage: stage 2 (mild) Qualified Code(s): E11.22 - Type 2 diabetes mellitus with theo betic chronic kidney disease; N18.2 - Chronic kidney disease, stage 2 (mild) Assessment & Plan: - Accuchecks AC/HS - Humalog S/S - A1C 6.33- controlled (5) Fall Current Visit: Yes Status: Acute Assessment & Plan: - Ground level fall - 2:2 weakness - PT/OT Eval - Possible placement need - Right elbow bruise- no ROM concern - No LOC - CK non-concerning Code(s): W19.XXXA - UNSPECIFIED FALL, INITIAL ENCOUNTER (6) CHF (congestive heart failure) Current Visit: Yes Status: Chronic Assessment & Plan: - BNP in AM - Hold BUMEX for now d/t JOAN - No current echo to review - Follows Dr. Sands with cardiology 02/22 - BNP 15783 - Hold bumex d/t JOAN- consider restarting in AM - RA 96% Code(s): I50.9 - HEART FAILURE, UNSPECIFIED Code(s): I50.9 - HEART FAILURE, UNSPECIFIED (7) Skin tear Current Visit: Yes Status: Acute Assessment & Plan: - Right wrist from arm band - Steri-strips placed by nurse VTE: SCD RLE PPI: Protonix Next of KIN: D/C plan: per podiatry Plan of care time> 40 minutes Code(s): [id number] -
[2025-02-22] MEDS: Acidophilus TABLET PO SCH (17:47)
[2025-02-22] MEDS: ECOTRIN 81 MG PO SCH (17:48)
[2025-02-22] MEDS: JARDIANCE PO SCH (17:48)
[2025-02-22] MEDS: Proscar 5 MG PO SCH (17:48)
[2025-02-22] MEDS: Cozaar 50 MG PO SCH (17:49)
[2025-02-22] MEDS: ELIQUIS 2.5 MG TABLET PO SCH (22:42)
[2025-02-22] MEDS: ZOCOR 20MG PO SCH (22:42)
[2025-02-22] MEDS: Apresoline 25 MG TABLET PO SCH (22:42)
[2025-02-22] MEDS: Toprol-Xl 25MG Tablets PO SCH (22:42)
[2025-02-23 05:05] LABS: Hematocrit 29.3 % (40.1-51.0); Hemoglobin 9.2 g/dL (13.7-17.5); Mean Corpuscular Hemoglobin 30.3 pg (25.7-32.2); Mean Corpuscular Hgb Concent. 31.4 g/dL (32.3-36.5); Platelet Count 222 x10^3/uL (163-337); Red Blood Count 3.04 x10^6/uL (4.63-6.08); White Blood Count 9.1 x10^3/uL (4.23-9.07)
[2025-02-23 05:36] LABS: Calcium 7.9 mg/dL (8.4-10.2); Carbon Dioxide 19.0 mmol/L (22-30); Creatinine 1 2.97 mg/dL (0.66-1.25); EST GLOMERULAR FILTRATION RATE 19.9 ML/MIN; Glucose 135.0 mg/dL (74-106); Potassium 4.2 mmol/L (3.5-5.1); SGOT/AST 39.0 U/L (17-59); SGPT/ALT 30.0 U/L (0-50); Total Protein 5.7 g/dL (6.3-8.2)
[2025-02-23] MEDS: Imdur 30 MG PO SCH (08:03)
--- NOTE | 2025-02-23 09:51 | XRAY ---
Indication: halfway placement. Comparison: April 27, 2024 Portable chest again demonstrates moderate bilateral mid to lower lung infiltrates/atelectasis/effusions, worsened on right. Heart again borderline enlarged with CABG. Bony thorax intact again with osteopenia and degenerative changes.
--- NOTE | 2025-02-23 11:04 | PCM.NOTE ---
Date and Time: 02/23/25 1100 Subjective Assessment: 02/21/25 is a 85-year-old male with a history of CHF, hypertension, type II diabetes mellitus, and prior CABG who was scheduled for outpatient IV antibiotics via his PICC line for diabetic left foot infection. He was evaluated by Dr. Burrows from podiatry, who recommended surgical intervention tomorrow for gangrene. Per Dr. Heard request, the patient was started on vancomycin, Zosyn, and clindamycin. Outpatient labs revealed a white blood cell count of 16, an anion gap of 19.3, and creatinine of 2.78, consistent with acute on chronic kidney failure based on prior results. The patient reports a fall last night, during which he injured his right elbow, now with a large bruise and wrapped arm. He denies any concerns with ROM. He also struck his head but denies loss of consciousness or injury. He attributes the fall to weakness related to his ongoing left foot infection. At present, he denies any additional concerns or pain. 02/22/25 The patient is resting in bed on postoperative day one following left foot surgery. His white blood cell count has improved to 10.9 from 16.1, and hem oglobin remains stable at 9.2. He continues on Zosyn, clindamycin, and vancomycin per podiatry recommendations. Normal saline is maintained at 50 mL/hr, with creatinine improved to 2.58 from 2.78, though baseline is 1.68. He experienced a temperature of 99.5 overnight and again this morning, for which Tylenol was administered for both fever and pain. Home medications have been resumed, with the exception of Lasix, which is held due to acute kidney injury. A skin tear on the right wrist was noted today and treated with Steri-Strips by nursing staff. The patient currently denies any further concerns. Per podiatry orders, a PICC line will be placed prior to discharge. 02/23/25 The patient is resting in bed and is agreeable to rehab placement if needed. Podiatry was consulted today and noted that the patient had gangrene of the left great toe, which was removed along with an incision and drainage of the bone; the surgical site was left open with plans to close it on Wednesday or Wednesday. Serial x-rays have been requested for follow-up. The patient is unable to receive a PICC line, as nephrology denied approval, and instead requires a tunneled line, which cannot be performed at this facility; podiatry has been made aware. Blood cultures 2 are negative. He remains on Zosyn, clindamycin, and vancomycin IV per podiatry recommendations, with a probiotic added yesterday to reduce the risk of diarrhea, which he currently denies. IV fluids have been discontinued. Creatinine has worsened to 2.97, consistent with acute on chronic renal failure, and oral Lasix has been restarted. White blood cell count has improved to 9.1, and daily weight is pending. The patient denies any further concerns at this time. - Review of Systems Constitutional: No Fever, No Chills Eyes: No Symptoms Ears, Nose, & Throat: No Symptoms Respiratory: No Cough Cardiac: No Chest Pain, No Edema, No Syncope Abdominal/Gastrointestinal: No Nausea, No Vomiting, No Diarrhea Genitourinary Symptoms: No Dysuria Musculoskeletal: No Back Pain, No Neck Pain Skin: Skin Lesions (LLE wrapped), No Rash Neurological: No Dizziness, No Focal Weakness, No Sensory Changes Psychological: No Symptoms Endocrine: No Symptoms Hematologic/Lymphatic: No Symptoms Immunological/Allergic: No Symptoms Objective Exam General Appearance: no apparent distress, alert Neurologic Exam: alert, oriented x 3, cooperative, normal mood/affect, nml cerebellar function, sensation nml, No motor deficits Skin Exam: normal color, warm, dry Wound Assessment: Skin/Wound Assessment Wound/Incision Assessment Start: 02/23/25 00:20 Text: Status: Active Freq: Q6H Protocol: Document 02/23/25 08:00 (Rec: 02/23/25 09:25 RB [id number]) Wound/Incision Assessment Left Foot Wound Assessment Shift Assessment Wound Type Amputation Comment GREAT TOE AMPUTATION, UNABLE TO ASSESS, DRESSING C/D/I Right Hand Wound Assessment Shift Assessment Wound Type Skin Tear Wound Stage Non Pressure Wound Secondary Dressing Gauze Pads Right Elbow Wound Assessment Shift Assessment Wound Type Skin Tear Wound Stage Non Pressure Wound Dressing Status Dry & Intact Primary Dressing Absorbant Pad Secondary Dressing Gauze Roll/Wrap Wound Photo Photo Taken No Eye Exam: PERRL, EOMI, eyes nml inspection Ears, Nose, Throat Exam: normal ENT inspection, pharynx normal, moist mucous membranes Neck Exam: normal inspection, non-tender, supple, full range of motion Respiratory Exam: normal breath sounds, lungs clear, No respiratory distress Cardiovascular Exam: regular rate/rhythm, normal heart sounds Gastrointestinal/Abdomen Exam: soft, No mass Extremity Exam: normal inspection, normal range of motion, other (LLE wrapped) Back Exam: normal inspection, normal range of motion, No CVA tenderness, No vertebral tenderness Male Genitalia Exam: deferred Rectal Exam: deferred Objective Data Vital Signs: Vital Signs - 24 hr Temp Pulse Resp BP Pulse Ox 02/23/25 08:00 97.9 F 80 20 96/45 92 L 02/23/25 07:00 97.9 F 80 20 96/45 92 L 02/23/25 03:00 97.9 F 93 H 20 117/61 93 L 02/22/25 23:00 98.8 F 89 16 109/59 91 L 02/22/25 19:00 97.6 F 91 H 16 125/61 94 L 02/22/25 15:27 81 18 123/57 96 02/22/25 11:35 90 18 121/58 96 02/22/25 11:05 97 F 84 18 116/57 96 Intake and Output: Intake & Output 02/20/25 02/21/25 02/22/25 02/23/25 11:59 11:59 11:59 11:59 Intake Total 360 2057 Output Total 100 300 Balance 260 1757 Weight 71.9 kg Lab Results: Lab Results-Last 24 Hours 02/22/25 02/22/25 02/22/25 Range/Units 11:23 17:24 20:07 WBC (4.23-9.07) x10^3/uL RBC (4.63-6.08) x10^6/uL Hgb (13.7-17.5) g/dL Hct (40.1-51.0) % MCV (79.0-92.2) fL MCH (25.7-32.2) pg MCHC (32.3-36.5) g/dL RDW (11.6-14.4) % Plt Count (163-337) x10^3/uL MPV (9.4-12.4) fL Sodium (135-145) mmol/L Potassium (3.5-5.1) mmol/L Chloride (98-107) mmol/L Carbon Dioxide (22-30) mmol/L Anion Gap (5-15) MEQ/L BUN (9-20) mg/dL Creatinine (0.66-1.25) mg/dL Estimated GFR ML/MIN Glucose (74-106) mg/dL POC Glucometer 158 H 165 H 142 H (74 to 106) mg/dL Calcium (8.4-10.2) mg/dL Total Bilirubin (0.2-1.3) mg/dL AST (17-59) U/L ALT (0-50) U/L Alkaline Phosphatase (38-126) U/L Serum Total Protein (6.3-8.2) g/dL Albumin (3.5-5.0) g/dL 02/23/25 02/23/25 02/23/25 Range/Units 04:27 04:27 07:01 WBC 9.1 H (4.23-9.07) x10^3/uL RBC 3.04 L (4.63-6.08) x10^6/uL Hgb 9.2 L (13.7-17.5) g/dL Hct 29.3 L (40.1-51.0) % MCV 96.4 H (79.0-92.2) fL MCH 30.3 (25.7-32.2) pg MCHC 31.4 L (32.3-36.5) g/dL RDW 19.1 H (11.6-14.4) % Plt Count 222 (163-337) x10^3/uL MPV 10.6 (9.4-12.4) fL Sodium 139 (135-145) mmol/L Potassium 4.2 (3.5-5.1) mmol/L Chloride 110 H (98-107) mmol/L Carbon Dioxide 19 L (22-30) mmol/L Anion Gap 13.6 (5-15) MEQ/L BUN 72 H (9-20) mg/dL Creatinine 2.97 H (0.66-1.25) mg/dL Estimated GFR 19.9 ML/MIN Glucose 135 H (74-106) mg/dL POC Glucometer 124 H (74 to 106) mg/dL Calcium 7.9 L (8.4-10.2) mg/dL Total Bilirubin 0.60 (0.2-1.3) mg/dL AST 39 (17-59) U/L ALT 30 (0-50) U/L Alkaline Phosphatase 88 (38-126) U/L Serum Total Protein 5.7 L (6.3-8.2) g/dL Albumin 2.9 L (3.5-5.0) g/dL Radiology Exams: Radiology Procedures Category Date Time Status CHEST 1 VIEW (PORTABLE) Urgent Exams 02/23/25 09:19 Completed Medications: Medications Generic Name Dose Route Start Last Admin Trade Name Freq PRN Reason Stop Dose Admin Acetaminophen 650 mg 02/21/25 18:11 Acetaminophen 325 Mg Tablet PO 03/23/25 18:10 Q6H PRN PRN PAIN, FEVER, HEADACHE Apixaban 2.5 mg 02/22/25 22:00 02/22/25 22:42 Apixaban 2.5 Mg Tablet PO 03/24/25 21:59 2.5 mg BID CARLOS Administration Aspirin 81 mg 02/22/25 17:00 02/22/25 17:48 Aspirin 81 Mg Tablet.Ec PO 03/24/25 16:59 81 mg DAILY CARLOS Administration Empagliflozin 10 mg 02/22/25 17:00 02/22/25 17:48 Empagliflozin 10 Mg Tablet PO 03/24/25 16:59 10 mg DAILY CARLOS Administration Finasteride 5 mg 02/22/25 17:00 02/22/25 17:48 Finasteride 5 Mg Tablet PO 03/24/25 16:59 5 mg DAILY CARLOS Administration Furosemide 40 mg 02/23/25 10:00 Furosemide 40 Mg Tablet PO 03/25/25 09:59 DAILY CARLOS Hydralazine HCl 12.5 mg 02/22/25 22:00 02/22/25 22:42 Hydralazine Hcl 25 Mg Tablet PO 03/24/25 21:59 12.5 mg TID CARLOS Administration Clindamycin HCl/Dextrose 600 mg in 50 mls @ 100 mls/hr 02/21/25 22:00 02/23/25 05:57 Clindamycin-D5w 600 Mg/50 Ml IV 03/23/25 21:59 100 mls/hr Q8HT CARLOS Administration Vancomycin HCl 500 mg/ Sodium 100 mls @ 100 mls/hr 02/22/25 10:00 02/22/25 10:32 Chloride IV 03/24/25 09:59 100 mls/hr DAILY CARLOS Administration Piperacillin Sod/Tazobactam 100 mls @ 200 mls/hr 02/23/25 12:00 Sod 2.25 gm/ Sodium Chloride IV 03/25/25 11:59 Q6HT CARLOS Insulin Human Lispro 0 unit 02/21/25 18:11 Insulin Lispro 1 Unit SQ 03/23/25 18:10 UD PRN HYPERGLYCEMIA Isosorbide Mononitrate 30 mg 02/23/25 08:00 02/23/25 08:03 Isosorbide Mononitrate 30 Mg Tab PO 03/25/25 07:59 30 mg BREAKFAST CARLOS Administration Lactobacillus Acidophilus 1 tab 02/22/25 16:08 02/22/25 17:47 Lactobacillus Acidophilus 1 Tab Tablet PO 03/24/25 16:07 1 tab DAILY CARLOS Administration Losartan Potassium 25 mg 02/22/25 17:00 02/22/25 17:49 Losartan Potassium 50 Mg Tablet PO 03/24/25 16:59 25 mg DAILY CARLOS Administration Metoprolol Succinate 25 mg 02/22/25 22:00 02/22/25 22:42 Metoprolol Succinate 25 Mg Xl Tab PO 03/24/25 21:59 25 mg HS CARLOS Administration Pantoprazole Sodium 20 mg 02/22/25 10:00 02/22/25 15:06 Pantoprazole 20 Mg Tab PO 03/24/25 09:59 20 mg DAILY CARLOS Administration Simvastatin 40 mg 02/22/25 22:00 02/22/25 22:42 Simvastatin 20 Mg Tablet PO 03/24/25 21:59 40 mg HS CARLOS Administration Discontinued Medications Generic Name Dose Route Start Last Admin Trade Name Brynq PRN Reason Stop Dose Admin Bupivacaine HCl Confirm 02/22/25 06:45 Bupivacaine Hcl 2.5 Mg/Ml 10 Ml Administered 02/22/25 06:46 Dose 10 ml .ROUTE .STK-MED ONE Bupivacaine HCl Confirm 02/22/25 07:04 Bupivacaine Hcl/Pf 150 Mg/30 Ml Vial Administered 02/22/25 07:05 Dose 150 mg .ROUTE .STK-MED ONE Fentanyl Citrate Confirm 02/22/25 07:11 Fentanyl Citrate 100 Mcg/2 Ml* Vial Administered 02/22/25 07:12 Dose 100 mcg .ROUTE .STK-MED ONE Piperacillin Sod/Tazobactam 100 mls @ 200 mls/hr 02/22/25 00:00 02/22/25 05:38 Sod 4.5 gm/ Sodium Chloride IV 03/24/25 00:00 200 mls/hr Q6HT CARLOS Administration Sodium Chloride 1,000 mls @ 50 mls/hr 02/21/25 18:15 02/22/25 19:24 Sodium Chloride 0.9% 1000 Ml IV 03/23/25 18:14 50 mls/hr .Q20H CARLOS Administration Sodium Chloride Confirm 02/21/25 23:29 Sodium Chloride 0.9% Administered 02/21/25 23:30 Dose 100 mls @ ud .ROUTE .STK-MED ONE Sodium Chloride Confirm 02/22/25 04:44 Sodium Chloride 0.9% Administered 02/22/25 04:45 Dose 100 mls @ ud .ROUTE .STK-MED ONE Piperacillin Sod/Tazobactam 100 mls @ 200 mls/hr 02/22/25 12:00 02/23/25 05:58 Sod 3.375 gm/ Sodium Chloride IV 02/25/25 11:59 200 mls/hr Q6HT CARLOS Administration Lidocaine HCl Confirm 02/22/25 06:46 Lidocaine Hcl/Pf 1 % 30 Ml Pf Sdv Administered 02/22/25 06:47 Dose 30 ml IJ .STK-MED ONE Non-Formulary Medication 1 each 02/21/25 18:10 02/22/25 10:57 Pharmacy Dose Request: Vancomycin 1 Each IV 02/21/25 18:11 Not Given STAT STA Piperacillin Sod/Tazobactam Sod Confirm 02/21/25 23:29 Piperacillin/Tazobactam Sodium 4.5 Gm Vial Administered 02/21/25 23:30 Dose 4.5 gm IV .STK-MED ONE Piperacillin Sod/Tazobactam Sod Confirm 02/22/25 04:44 Piperacillin/Tazobactam Sodium 4.5 Gm Vial Administered 02/22/25 04:45 Dose 4.5 gm IV .STK-MED ONE Propofol Confirm 02/22/25 07:10 Propofol 200 Mg/20 Ml Vial Administered 02/22/25 07:11 Dose 200 mg IV .STK-MED ONE Multi-Disciplinary Progress Notes: Multi-Disciplinary Progress Notes 02/23/25 09:36 Case Management Note by Renetta Bills S/W PATIENT AND HE SAYS THAT HE IS AGREEABLE TO REHAB STAY. WANTS TO GO TO [facility] IF HE NEEDS REHAB. IF HE FEELS THAT REHAB IS NOT WHAT HE NEEDS AFTER A FEW DAYS, HE WOULD BE AGREEABLE TO [facility]. INITIAL REFERRAL FAXED TO [facility]. Initialized on 02/23/25 09:36 - END OF NOTE 02/23/25 07:16 Pharmacy Note by Juan Miguel Kenney Creatinine worse today at 2.97. Will decrease Zosyn to 2.25gm dose. Initialized on 02/23/25 07:16 - END OF NOTE 02/22/25 17:14 Occupational Therapy Note by [place]([id number]),Anny ARCE INITIATED THIS AM. WILL COMPLETE NEXT DATE PATIENT TOLERATES. Initialized on 02/22/25 17:14 - END OF NOTE Assessment/Plan (1) Diabetic infection of left foot Current Visit: No Status: Acute Code(s): E11.628 - TYPE 2 DIABETES MELLITUS WITH OTHER SKIN COMPLICATIONS; L08.9 - LOCAL INFECTION OF THE SKIN AND SUBCUTANEOUS TISSUE, UNSP (2) Acute on chronic renal failure Current Visit: Yes Status: Acute Code(s): N17.9 - ACUTE KIDNEY FAILURE, UNSPECIFIED; N18.9 - CHRONIC KIDNEY DISEASE, UNSPECIFIED (3) Dehydration Current Visit: Yes Status: Acute Code(s): E86.0 - DEHYDRATION (4) Type 2 diabetes mellitus Current Visit: No Status: Chronic Qualifiers: Diabetes mellitus correction insulin use: without correction use Diabetes mellitus complication status: with kidney complications Diabetes mellitus complication detail: with chronic kidney disease Chronic kidney disease stage: stage 2 (mild) (5) Fall Current Visit: Yes Status: Acute Code(s): W19.XXXA - UNSPECIFIED FALL, INITIAL ENCOUNTER (6) CHF (congestive heart failure) Current Visit: Yes Status: Chronic Code(s): I50.9 - HEART FAILURE, UNSPECIFIED (7) Skin tear Current Visit: Yes Status: Acute Assessment & Plan: (1) Diabetic infection of left foot Current Visit: No Status: Acute Assessment & Plan: - NPO at midnight - Podiatry consult placed - Procedure with Dr. Burrows in AM in OR - Left foot XR -02/21 3 nonweightbearing views left foot demonstrates 1st toe soft tissue swelling with subcutaneous emphysema worrisome for gas-forming infection. Base distal 1st phalanx demonstrates moth-eaten appearance laterally favoring osteomyelitis. Elsewhere osteopenia, moderate 1st MTP bunion deformity, mild 1st MTP periarticular erosions as seen with gout, tiny posterior heel spur, and moderate scattered vascular calcifications. - Vancomycin, Zosyn, Clindamycin per podiatry orders - CBC, CMP reviewed - WBC 16 - BC x2 pending- completed OP 02/21 - Wound culture OP 02/21 completed in podiatry office 02/22 - PICC line to be placed and will be receiving OP antibiotics IV- this a correction from yesterday as thought he already had a picc line in place. - POD #1 from left foot surgery - Podiatry note pending as to what procedure was actually completed. - CBC, CMP reviewed - WBC 10.9 - Continue antibiotics - Temp 99.5 all night- tylenol PRN - Probiotics 02/23 - IV PICC line unable to be completed here as nephrology refused to clear patient for this. Nephrology explained patient would need a tunneled line however we are unable to do that at this facility and podiatry made aware of this. - BC x2 negative - CBC, CMP reviewed - BC x2 negative - Podiatry to order serial XR's when needed - Cont. IV antibiotics - Podiatry to take back to OR Wednesday or Wednesday - Podiatry note pending Code(s): E11.628 - TYPE 2 DIABETES MELLITUS WITH OTHER SKIN COMPLICATIONS; L08.9 - LOCAL INFECTION OF THE SKIN AND SUBCUTANEOUS TISSUE, UNSP (2) Acute on chronic renal failure Current Visit: Yes Status: Acute Assessment & Plan: - Creat 2.78, baseline 1.68 - NS @ 50 ml/hr- gentle hydration d/t hx of CHF 02/22 - Creat 2.58, improving - Hold Bumex - IVF 02/23 - Creat 2.97- worse - IVF stopped - Lasix restarted Code(s): N17.9 - ACUTE KIDNEY FAILURE, UNSPECIFIED; N18.9 - CHRONIC KIDNEY DISEASE, UNSPECIFIED (3) Dehydration Current Visit: Yes Status: Acute Assessment & Plan: -IVF - Anion gap 19.3- trend 02/23 - Resolved Code(s): E86.0 - DEHYDRATION (4) Type 2 diabetes mellitus Current Visit: No Status: Chronic Qualifiers: Diabetes mellitus correction insulin use: without termite exterminator helper use Diabetes me llitus complication status: with kidney complications Diabetes mellitus complication detail: with chronic kidney disease Chronic kidney disease stage: stage 2 (mild) Qualified Code(s): E11.22 - Type 2 diabetes mellitus with diabetic chronic kidney disease; N18.2 - Chronic kidney disease, stage 2 (mild) Assessment & Plan: - Accuchecks AC/HS - Humalog S/S - A1C 6.33- controlled (5) Fall Current Visit: Yes Status: Acute Assessment & Plan: - Ground level fall - 2:2 weakness - PT/OT Eval - Possible placement need - Right elbow bruise- no ROM concern - No LOC - CK non-concerning 02/23 - Pt agreeable to rehab if needed per CM Code(s): W19.XXXA - UNSPECIFIED FALL, INITIAL ENCOUNTER (6) CHF (congestive heart failure) Current Visit: Yes Status: Chronic Assessment & Plan: - BNP in AM - Hold Lasix for now d/t JOAN - No current echo to review - Follows Dr. Sands with cardiology 02/22 - BNP [id number] - Hold Lasix d/t JOAN- consider restarting in AM - RA 96% 02/23 - Wt pending - Resume home lasix Code(s): I50.9 - HEART FAILURE, UNSPECIFIED (7) Skin tear Current Visit: Yes Status: Acute Assessment & Plan: - Right wrist from arm band - Steri-strips placed by nurse and wrapped VTE: SCD RLE PPI: Protonix Next of KIN: D/C plan: per podiatry Plan of care time> 40 minutes Code(s): [id number] - Code(s): [id number] -
[2025-02-23] MEDS: Lasix 40 MG PO SCH (11:18)
[2025-02-23] MEDS: Piperacillin/Tazobactam 2.25 GM 2.25 GM in Sodium Chloride 0.9% 100 ML IV SCH (12:54)
--- NOTE | 2025-02-23 13:21 | PCM.NOTE ---
Date and Time: 02/23/25 3050 Subjective Assessment: Mr. Love is an 85-year-old male who is status post day 2 for left first metatarsal amputation with incision and drainage and bone debridement. At this time he denies any complaints of pain. At this time he denies any signs or symptoms consistent with systemic infection. Physical Exam - General General Appearance: no apparent distress - Vascular Peripheral Pulses: Posterior tibialis: 2+, Dorsalis-Pedis: 2+ Capillary Refill Time: < 3 seconds Edema Degree: 2+ Skin: Supple, not atrophic Skin Temperature: Warm to touch - Narrative Narrative Physical Exam: Podiatry Physical Exam Postoperative dressing removed to the level of surgical incision. Quarter inch iodoform packing was removed. Noted sanguinous discharge with no purulent discharge or malodor. Medial aspect sutures remain in place. Left lower extremity dressed with iodine flush and iodine soaked iodoform gauze packing following with Adaptic, 4 x 4, Kerlix, Tito bandage applied to the level of the tibial tuberosity. Discussed with the patient plan of care of continuing serial radiographs for evaluation and daily dressing changes. Patient is understanding and agreeable with this Objective Data Vital Signs: Vital Signs - 24 hr Temp Pulse Resp BP Pulse Ox 02/23/25 12:00 98.2 F 76 18 105/55 93 L 02/23/25 08:00 97.9 F 80 20 96/45 92 L 02/23/25 07:00 97.9 F 80 20 96/45 92 L 02/23/25 03:00 97.9 F 93 H 20 117/61 93 L 02/22/25 23:00 98.8 F 89 16 109/59 91 L 02/22/25 19:00 97.6 F 91 H 16 125/61 94 L 02/22/25 15:27 81 18 123/57 96 Intake and Output: Intake & Output 02/21/25 02/22/25 02/23/25 02/24/25 06:59 06:59 06:59 06:59 Intake Total 240 1817 360 Output Total 100 300 Balance 140 1517 360 Weight 71.9 kg 71.9 kg Lab Results: Lab Results-Last 24 Hours 02/22/25 02/22/25 02/23/25 Range/Units 17:24 20:07 04:27 WBC 9.1 H (4.23-9.07) x10^3/uL RBC 3.04 L (4.63-6.08) x10^6/uL Hgb 9.2 L (13.7-17.5) g/dL Hct 29.3 L (40.1-51.0) % MCV 96.4 H (79.0-92.2) fL MCH 30.3 (25.7-32.2) pg MCHC 31.4 L (32.3-36.5) g/dL RDW 19.1 H (11.6-14.4) % Plt Count 222 (163-337) x10^3/uL MPV 10.6 (9.4-12.4) fL Sodium (135-145) mmol/L Potassium (3.5-5.1) mmol/L Chloride (98-107) mmol/L Carbon Dioxide (22-30) mmol/L Anion Gap (5-15) MEQ/L BUN (9-20) mg/dL Creatinine (0.66-1.25) mg/dL Estimated GFR ML/MIN Glucose (74-106) mg/dL POC Glucometer 165 H 142 H (74 to 106) mg/dL Calcium (8.4-10.2) mg/dL Total Bilirubin (0.2-1.3) mg/dL AST (17-59) U/L ALT (0-50) U/L Alkaline Phosphatase (38-126) U/L Serum Total Protein (6.3-8.2) g/dL Albumin (3.5-5.0) g/dL 02/23/25 02/23/25 02/23/25 Range/Units 04:27 07:01 11:32 WBC (4.23-9.07) x10^3/uL RBC (4.63-6.08) x10^6/uL Hgb (13.7-17.5) g/dL Hct (40.1-51.0) % MCV (79.0-92.2) fL MCH (25.7-32.2) pg MCHC (32.3-36.5) g/dL RDW (11.6-14.4) % Plt Count (163-337) x10^3/uL MPV (9.4-12.4) fL Sodium 139 (135-145) mmol/L Potassium 4.2 (3.5-5.1) mmol/L Chloride 110 H (98-107) mmol/L Carbon Dioxide 19 L (22-30) mmol/L Anion Gap 13.6 (5-15) MEQ/L BUN 72 H (9-20) mg/dL Creatinine 2.97 H (0.66-1.25) mg/dL Estimated GFR 19.9 ML/MIN Glucose 135 H (74-106) mg/dL POC Glucometer 124 H 175 H (74 to 106) mg/dL Calcium 7.9 L (8.4-10.2) mg/dL Total Bilirubin 0.60 (0.2-1.3) mg/dL AST 39 (17-59) U/L ALT 30 (0-50) U/L Alkaline Phosphatase 88 (38-126) U/L Serum Total Protein 5.7 L (6.3-8.2) g/dL Albumin 2.9 L (3.5-5.0) g/dL Radiology Exams: Radiology Procedures Category Date Time Status CHEST 1 VIEW (PORTABLE) Urgent Exams 02/23/25 09:19 Completed Medications: Medications Generic Name Dose Route Start Last Admin Trade Name Freq PRN Reason Stop Dose Admin Acetaminophen 650 mg 02/21/25 18:11 Acetaminophen 325 Mg Tablet PO 03/23/25 18:10 Q6H PRN PRN PAIN, FEVER, HEADACHE Apixaban 2.5 mg 02/22/25 22:00 02/23/25 11:21 Apixaban 2.5 Mg Tablet PO 03/24/25 21:59 2.5 mg BID CARLOS Administration Aspirin 81 mg 02/22/25 17:00 02/23/25 11:16 Aspirin 81 Mg Tablet.Ec PO 03/24/25 16:59 81 mg DAILY CARLOS Administration Device 1 02/24/25 09:30 Therapuetic Drug Level Monitor Each IJ 02/24/25 09:31 1XONLY ONE Empagliflozin 10 mg 02/22/25 17:00 02/23/25 11:18 Empagliflozin 10 Mg Tablet PO 03/24/25 16:59 10 mg DAILY CARLOS Administration Finasteride 5 mg 02/22/25 17:00 02/23/25 11:19 Finasteride 5 Mg Tablet PO 03/24/25 16:59 5 mg DAILY CARLOS Administration Furosemide 40 mg 02/23/25 10:00 02/23/25 11:18 Furosemide 40 Mg Tablet PO 03/25/25 09:59 40 mg DAILY CARLOS Administration Hydralazine HCl 12.5 mg 02/22/25 22:00 02/23/25 11:58 Hydralazine Hcl 25 Mg Tablet PO 03/24/25 21:59 Not Given TID CARLOS Clindamycin HCl/Dextrose 600 mg in 50 mls @ 100 mls/hr 02/21/25 22:00 02/23/25 05:57 Clindamycin-D5w 600 Mg/50 Ml IV 03/23/25 21:59 100 mls/hr Q8HT CARLOS Administration Vancomycin HCl 500 mg/ Sodium 100 mls @ 100 mls/hr 02/22/25 10:00 02/23/25 11:22 Chloride IV 03/24/25 09:59 100 mls/hr DAILY CARLOS Administration Piperacillin Sod/Tazobactam 100 mls @ 200 mls/hr 02/23/25 12:00 02/23/25 12:54 Sod 2.25 gm/ Sodium Chloride IV 03/25/25 11:59 200 mls/hr Q6HT CARLOS Administration Insulin Human Lispro 0 unit 02/21/25 18:11 Insulin Lispro 1 Unit SQ 03/23/25 18:10 UD PRN HYPERGLYCEMIA Isosorbide Mononitrate 30 mg 02/23/25 08:00 02/23/25 08:03 Isosorbide Mononitrate 30 Mg Tab PO 03/25/25 07:59 30 mg BREAKFAST CARLOS Administration Lactobacillus Acidophilus 1 tab 02/22/25 16:08 02/23/25 11:15 Lactobacillus Acidophilus 1 Tab Tablet PO 03/24/25 16:07 1 tab DAILY CARLOS Administration Losartan Potassium 25 mg 02/22/25 17:00 02/23/25 11:58 Losartan Potassium 50 Mg Tablet PO 03/24/25 16:59 Not Given DAILY CARLOS Metoprolol Succinate 25 mg 02/22/25 22:00 02/22/25 22:42 Metoprolol Succinate 25 Mg Xl Tab PO 03/24/25 21:59 25 mg HS CARLOS Administration Pantoprazole Sodium 20 mg 02/22/25 10:00 02/23/25 11:15 Pantoprazole 20 Mg Tab PO 03/24/25 09:59 20 mg DAILY CARLOS Administration Simvastatin 40 mg 02/22/25 22:00 02/22/25 22:42 Simvastatin 20 Mg Tablet PO 03/24/25 21:59 40 mg HS CARLOS Administration Discontinued Medications Generic Name Dose Route Start Last Admin Trade Name Homer PRN Reason Stop Dose Admin Bupivacaine HCl Confirm 02/22/25 06:45 Bupivacaine Hcl 2.5 Mg/Ml 10 Ml Administered 02/22/25 06:46 Dose 10 ml .ROUTE .STK-MED ONE Bupivacaine HCl Confirm 02/22/25 07:04 Bupivacaine Hcl/Pf 150 Mg/30 Ml Vial Administered 02/22/25 07:05 Dose 150 mg .ROUTE .STK-MED ONE Fentanyl Citrate Confirm 02/22/25 07:11 Fentanyl Citrate 100 Mcg/2 Ml* Vial Administered 02/22/25 07:12 Dose 100 mcg .ROUTE .STK-MED ONE Piperacillin Sod/Tazobactam 100 mls @ 200 mls/hr 02/22/25 00:00 02/22/25 05:38 Sod 4.5 gm/ Sodium Chloride IV 03/24/25 00:00 200 mls/hr Q6HT CARLOS Administration Sodium Chloride 1,000 mls @ 50 mls/hr 02/21/25 18:15 02/22/25 19:24 Sodium Chloride 0.9% 1000 Ml IV 03/23/25 18:14 50 mls/hr .Q20H CARLOS Administration Sodium Chloride Confirm 02/21/25 23:29 Sodium Chloride 0.9% Administered 02/21/25 23:30 Dose 100 mls @ ud .ROUTE .STK-MED ONE Sodium Chloride Confirm 02/22/25 04:44 Sodium Chloride 0.9% Administered 02/22/25 04:45 Dose 100 mls @ ud .ROUTE .STK-MED ONE Piperacillin Sod/Tazobactam 100 mls @ 200 mls/hr 02/22/25 12:00 02/23/25 05:58 Sod 3.375 gm/ Sodium Chloride IV 02/25/25 11:59 200 mls/hr Q6HT CARLOS Administration Lidocaine HCl Confirm 02/22/25 06:46 Lidocaine Hcl/Pf 1 % 30 Ml Pf Sdv Administered 02/22/25 06:47 Dose 30 ml IJ .STK-MED ONE Non-Formulary Medication 1 each 02/21/25 18:10 02/22/25 10:57 Pharmacy Dose Request: Vancomycin 1 Each IV 02/21/25 18:11 Not Given STAT STA Piperacillin Sod/Tazobactam Sod Confirm 02/21/25 23:29 Piperacillin/Tazobactam Sodium 4.5 Gm Vial Administered 02/21/25 23:30 Dose 4.5 gm IV .STK-MED ONE Piperacillin Sod/Tazobactam Sod Confirm 02/22/25 04:44 Piperacillin/Tazobactam Sodium 4.5 Gm Vial Administered 02/22/25 04:45 Dose 4.5 gm IV .STK-MED ONE Propofol Confirm 02/22/25 07:10 Propofol 200 Mg/20 Ml Vial Administered 02/22/25 07:11 Dose 200 mg IV .STK-MED ONE Multi-Disciplinary Progress Notes: Multi-Disciplinary Progress Notes 02/23/25 09:36 Case Management Note by Renetta Bills S/W PATIENT AND HE SAYS THAT HE IS AGREEABLE TO REHAB STAY. WANTS TO GO TO [facility] IF HE NEEDS REHAB. IF HE FEELS THAT REHAB IS NOT WHAT HE NEEDS AFTER A FEW DAYS, HE WOULD BE AGREEABLE TO [facility]. INITIAL REFERRAL FAXED TO [facility]. Initialized on 02/23/25 09:36 - END OF NOTE 02/23/25 07:16 Pharmacy Note by Juan Miguel Kenney Creatinine worse today at 2.97. Will decrease Zosyn to 2.25gm dose. Initialized on 02/23/25 07:16 - END OF NOTE 02/22/25 17:14 Occupational Therapy Note by Virginia([id number])Anny OT INITIATED THIS AM. WILL COMPLETE NEXT DATE PATIENT TOLERATES. Initialized on 02/22/25 17:14 - END OF NOTE Assessment/Plan (1) Gas gangrene of lower extremity Current Visit: Yes Status: Acute Assessment & Plan: Surgical site without signs of local infection at this time. Recommend daily dressings with iodoform packing to be removed at the next dressing. Subsequent dressings to be iodine flush, iodine around, Adaptic, 4 x 4, Kerlix, Tito with mild compression to the level of the tibial tuberosity Awaiting surgical pathology Code(s): A48.0 - GAS GANGRENE (2) Dehydration Current Visit: Yes Status: Acute Code(s): E86.0 - DEHYDRATION (3) CHF (congestive heart failure) Current Visit: Yes Status: Chronic Assessment & Plan: It was noted that during the visit the patient had audible wheezes. Patient denied this to be worse than previous days. Notified attending hospitalist HISTOLOGIC TECHNICIAN. 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
--- NOTE | 2025-02-23 14:33 | XRAY ---
Indication: Gangrene. Comparison: February 21, 2025 2 nonweightbearing views left foot demonstrates interval total amputation great toe with presumed postoperative soft tissue swelling. Remaining foot unchanged again with chronic features including osteopenia, 1st metatarsal head periarticular erosions, tiny heel spur, and moderate scattered vascular calcifications.
--- NOTE | 2025-02-23 16:26 | OP ---
SURGERY DATE/TIME: 02/22/2025 [id number] PREOPERATIVE DIAGNOSES: 1) Left great toe diabetic foot ulcer. 2) Left foot pain. 3) Diabetic foot ulceration. 4) Gas gangrene. 5) Diabetes mellitus. 6) Peripheral vascular disease. POSTOPERATIVE DIAGNOSES: 1) Left great toe diabetic foot ulcer. 2) Left foot pain. 3) Diabetic foot ulceration. 4) Gas gangrene. 5) Diabetes mellitus. 6) Peripheral vascular disease. PROCEDURES: 1) Amputation hallux, left foot. 2) Incision and drainage with bone debridement to left first metatarsal and surrounding tissue. SURGEON: Markos Leung MD BODY BUMPER: None. ANESTHESIA: Monitored anesthesia care with intraoperative local block. HEMOSTASIS: Pressure dressing. ESTIMATED BLOOD LOSS: Approximately 5 mL. MATERIALS: 3-0 nylon, 0.25 inch Iodoform packing. INJECTABLES: 20 mL of 1:1 mixture of 1% lidocaine plain and 0.5% bupivacaine plain injected in a Schumacher block-type fashion. INDICATIONS FOR PROCEDURE: The patient is a very pleasant, 85-year-old male, who presented to my service at the recommendation of outpatient surgery who he was sent to for outpatient infusions by his primary care. Patient presented with a 2-day history of worsening infection to the left great toe for which he was receiving IV antibiotics. He was planned to have a PICC line placed. From that standpoint, patient was assumed immediate. The significant anaerobic smell to the great toe and the destructive changes, as well as the discoloration to the toe. There was a high suspicion of gas gangrene. X-rays were taken demonstrating soft tissue emphysema and immediate direct admission was performed. Patient, at that time, was informed that amputation would be the quickest way to prevent further loss of limb and potential loss of life. He has been made aware of all risks, complications, and benefits to surgical intervention at this time, including but not limited to, infection, hematoma, seroma, possibility of delayed wound healing, non-wound healing, possible need for further surgical intervention which I do anticipate given the nature of this disease. We are going to leave this wound open for a short period of time and then come back for closure at a later date. Once again, no guarantees have been provided as to the outcome. Plenty of time was allowed for questions to be answered, which were answered to his and his 's apparent satisfaction. It is at this time we decided to proceed. DESCRIPTION OF PROCEDURE AND FINDINGS: The patient was brought into the operating room, placed on the operating room table in the supine position. Monitored anesthesia care was administered until the patient was adequately sedated. Once the patient was sedated, the left lower extremity was prepped and draped in a typical sterile fashion and lowered on the surgical field. At this time, attention was directed to the left foot where a Schumacher block was performed utilizing 20 mL of a 1:1 mixture of 1% lidocaine plain and 0.5% bupivacaine plain. Once the local anesthetic took effect, a medial racquet-type incision was performed, excising in total the great toe, lifting and elevating the skin margins, with full-thickness soft tissue flaps. The infection was tracked over the first metatarsal. Utilizing a curette, 15-blade, rongeurs, and pickups, any devitalized tissue as well as devitalized bone was debrided from this site. Any devitalized tissue and the amputated toe was then handed off the field for pathological and microbiologic assessment. From that standpoint, 1000 mL of Bactisure was then utilized to flush the surgical site and then 3000 mL of sterile saline. A 3-0 nylon was then utilized to coapt the skin edges in a trauma suture-type fashion medially and then the entrance of the wound was packed utilizing an iodine soaked 0.25 inch Iodoform packing. A dressing consisting of Betadine, Adaptic, 4 x 4, Kerlix, ABD, and Tito was applied to the patient's left lower extremity. The patient was reversed from anesthesia and returned to the postoperative anesthesia care unit with vital signs stable and vascular status intact. The patient handled the anesthesia as well as the procedure without significant complication. Postoperative orders as indicated in the patient's discharge chart.
[2025-02-23] MEDS: HUMALOG SQ PRN (21:26)
[2025-02-24 05:16] LABS: Hematocrit 28.8 % (40.1-51.0); Hemoglobin 9.1 g/dL (13.7-17.5); Mean Corpuscular Hemoglobin 30.0 pg (25.7-32.2); Mean Corpuscular Hgb Concent. 31.6 g/dL (32.3-36.5); Platelet Count 256 x10^3/uL (163-337); Red Blood Count 3.03 x10^6/uL (4.63-6.08); White Blood Count 8.3 x10^3/uL (4.23-9.07)
[2025-02-24 06:09] LABS: Calcium 7.9 mg/dL (8.4-10.2); Carbon Dioxide 18.0 mmol/L (22-30); Creatinine 1 3.3 mg/dL (0.66-1.25); EST GLOMERULAR FILTRATION RATE 17.5 ML/MIN; Glucose 141.0 mg/dL (74-106); Potassium 4.0 mmol/L (3.5-5.1); SGOT/AST 26.0 U/L (17-59); SGPT/ALT 24.0 U/L (0-50); Total Protein 5.8 g/dL (6.3-8.2)
--- NOTE | 2025-02-24 10:34 | PCM.NOTE ---
Date and Time: 02/24/25 1028 Subjective Assessment: 02/21/25 is a 85-year-old male with a history of CHF, hypertension, type II diabetes mellitus, and prior CABG who was scheduled for outpatient IV antibiotics via his PICC line for diabetic left foot infection. He was evaluated by Dr. Burrows from podiatry, who recommended surgical intervention tomorrow for gangrene. Per Dr. Heard request, the patient was started on vancomycin, Zosyn, and clindamycin. Outpatient labs revealed a white blood cell count of 16, an anion gap of 19.3, and creatinine of 2.78, consistent with acute on chronic kidney failure based on prior results. The patient reports a fall last night, during which he injured his right elbow, now with a large bruise and wrapped arm. He denies any concerns with ROM. He also struck his head but denies loss of consciousness or injury. He attributes the fall to weakness related to his ongoing left foot infection. At present, he denies any additional concerns or pain. 02/22/25 The patient is resting in bed on postoperative day one following left foot surgery. His white blood cell count has improved to 10.9 from 16.1, and hem oglobin remains stable at 9.2. He continues on Zosyn, clindamycin, and vancomycin per podiatry recommendations. Normal saline is maintained at 50 mL/hr, with creatinine improved to 2.58 from 2.78, though baseline is 1.68. He experienced a temperature of 99.5 overnight and again this morning, for which Tylenol was administered for both fever and pain. Home medications have been resumed, with the exception of Lasix, which is held due to acute kidney injury. A skin tear on the right wrist was noted today and treated with Steri-Strips by nursing staff. The patient currently denies any further concerns. Per podiatry orders, a PICC line will be placed prior to discharge. 02/23/25 The patient is resting in bed and is agreeable to rehab placement if needed. Podiatry was consulted today and noted that the patient had gangrene of the left great toe, which was removed along with an incision and drainage of the bone; the surgical site was left open with plans to close it on Wednesday or Wednesday. Serial x-rays have been requested for follow-up. The patient is unable to receive a PICC line, as nephrology denied approval, and instead requires a tunneled line, which cannot be performed at this facility; podiatry has been made aware. Blood cultures 2 are negative. He remains on Zosyn, clindamycin, and vancomycin IV per podiatry recommendations, with a probiotic added yesterday to reduce the risk of diarrhea, which he currently denies. IV fluids have been discontinued. Creatinine has worsened to 2.97, consistent with acute on chronic renal failure, and oral Lasix has been restarted. White blood cell count has improved to 9.1, and daily weight is pending. The patient denies any further concerns at this time. 02/24/25 The patient is resting in bed and presents with increased edema of the right lower extremity as well as involvement of the bilateral thighs. Laboratory results show a stable white blood cell count, hemoglobin at 9.1, and negative blood cultures (2). Per podiatry, the patient is to undergo daily foot x-rays and continue wound care. A chest x-ray performed yesterday revealed possible right-sided pneumonia with effusion. Lasix was administered yesterday but is being held today due to elevated creatinine at 3.30. Nephrology has been consulted and recommended transfer to [facility] for possible dialysis; however, after discussion, the patient and family expressed a desire to speak directly with Dr. Pires before making a decision. Albumin has been initiated to address edema. Antibiotic therapy was adjusted, with Zosyn and vancomycin discontinued and cefepime started in the setting of acute kidney injury on chronic kidney disease. Both Lasix and Jardiance are being held today. Risks and benefits of remaining at [facility] versus worsening kidney function were discussed in detail. The patient denies chest pain, abdominal pain, nausea, or vomiting, but reports diarrhea. He is currently on clindamycin and receiving probiotics for this. - Review of Systems Constitutional: Weakness, No Fever, No Chills Eyes: No Symptoms Ears, Nose, & Throat: No Symptoms Respiratory: Orthopnea, Wheezing, No Cough, No Short Of Breath Cardiac: Edema (BLthighs,and RLE), No Chest Pain, No Syncope Abdominal/Gastrointestinal: No Abdominal Pain, No Nausea, No Vomiting, No Diarrhea Genitourinary Symptoms: No Dysuria Musculoskeletal: No Back Pain, No Neck Pain Skin: Skin Lesions (LLE wrapped), No Rash Neurological: No Dizziness, No Focal Weakness, No Sensory Changes Psychological: No Symptoms Endocrine: No Symptoms Hematologic/Lymphatic: No Symptoms Immunological/Allergic: No Symptoms Objective Exam General Appearance: no apparent distress, alert Neurologic Exam: alert, oriented x 3, cooperative, normal mood/affect, nml cerebellar function, sensation nml, motor weakness, No motor deficits Skin Exam: normal color, warm, dry Wound Assessment: Skin/Wound Assessment Wound/Incision Assessment Start: 02/23/25 00:20 Text: Status: Active Freq: Q6H Protocol: Document 02/24/25 09:01 RB (Rec: 02/24/25 09:07 RB [id number]) Wound/Incision Assessment Right Upper Lateral Arm Wound Assessment New Finding Wound Type Skin Tear Drainage Amount Minimal Drainage Description Sanguineous General Appearance Bleeding Surrounding Tissue Bright Red Primary Dressing Non-Adherent Gauze Pads Secondary Dressing Gauze Roll/Wrap Eye Exam: PERRL, EOMI, eyes nml inspection Ears, Nose, Throat Exam: normal ENT inspection, pharynx normal, moist mucous membranes Neck Exam: normal inspection, non-tender, supple, full range of motion Respiratory Exam: normal breath sounds, diminished breath sounds (RLL), wheezing, No respiratory distress Cardiovascular Exam: regular rate/rhythm, normal heart sounds, edema (BLLE) Gastrointestinal/Abdomen Exam: soft, No tenderness, No mass Extremity Exam: normal inspection, normal range of motion, other (LLE wrapped) Back Exam: normal inspection, normal range of motion, No CVA tenderness, No vertebral tenderness Male Genitalia Exam: deferred Rectal Exam: deferred Objective Data Vital Signs: Vital Signs - 24 hr Temp Pulse Resp BP Pulse Ox 02/24/25 07:26 98.2 F 80 18 139/62 94 L 02/24/25 04:00 98.1 F 81 16 129/57 94 L 02/24/25 00:00 98.4 F 85 16 127/62 95 02/23/25 19:40 98.2 F 87 16 121/61 94 L 02/23/25 16:00 98.4 F 84 20 117/58 94 L 02/23/25 12:00 98.2 F 76 18 105/55 93 L Intake and Output: Intake & Output 02/21/25 02/22/25 02/23/2502/24/25 11:59 11:59 11:59 11:59 Intake Total 360 2056 2212 Output Total 100 300 150 Balance 260 1757 206 Weight 71.9 kg 82 kg Lab Results: Lab Results-Last 24 Hours 02/23/25 02/23/25 02/23/25 Range/Units 11:32 16:19 20:57 WBC (4.23-9.07) x10^3/uL RBC (4.63-6.08) x10^6/uL Hgb (13.7-17.5) g/dL Hct (40.1-51.0) % MCV (79.0-92.2) fL MCH (25.7-32.2) pg MCHC (32.3-36.5) g/dL RDW (11.6-14.4) % Plt Count (163-337) x10^3/uL MPV (9.4-12.4) fL Sodium (135-145) mmol/L Potassium (3.5-5.1) mmol/L Chloride (98-107) mmol/L Carbon Dioxide (22-30) mmol/L Anion Gap (5-15) MEQ/L BUN (9-20) mg/dL Creatinine (0.66-1.25) mg/dL Estimated GFR ML/MIN Glucose (74-106) mg/dL POC Glucometer 175 H 168 H 152 H (74 to 106) mg/dL Calcium (8.4-10.2) mg/dL Total Bilirubin (0.2-1.3) mg/dL AST (17-59) U/L ALT (0-50) U/L Alkaline Phosphatase (38-126) U/L Serum Total Protein (6.3-8.2) g/dL Albumin (3.5-5.0) g/dL Vancomycin Trough (10-20) ug/mL 02/24/25 02/24/25 02/24/25 Range/Units 04:15 04:15 07:14 WBC 8.3 (4.23-9.07) x10^3/uL RBC 3.03 L (4.63-6.08) x10^6/uL Hgb 9.1 L (13.7-17.5) g/dL Hct 28.8 L (40.1-51.0) % MCV 95.0 H (79.0-92.2) fL MCH 30.0 (25.7-32.2) pg MCHC 31.6 L (32.3-36.5) g/dL RDW 19.1 H (11.6-14.4) % Plt Count 256 (163-337) x10^3/uL MPV 10.9 (9.4-12.4) fL Sodium 141 (135-145) mmol/L Potassium 4.0 (3.5-5.1) mmol/L Chloride 110 H (98-107) mmol/L Carbon Dioxide 18 L (22-30) mmol/L Anion Gap 15.8 H (5-15) MEQ/L BUN 70 H (9-20) mg/dL Creatinine 3.30 H (0.66-1.25) mg/dL Estimated GFR 17.5 ML/MIN Glucose 141 H (74-106) mg/dL POC Glucometer 120 H (74 to 106) mg/dL Calcium 7.9 L (8.4-10.2) mg/dL Total Bilirubin 0.60 (0.2-1.3) mg/dL AST 26 (17-59) U/L ALT 24 (0-50) U/L Alkaline Phosphatase 77 (38-126) U/L Serum Total Protein 5.8 L (6.3-8.2) g/dL Albumin 3.0 L (3.5-5.0) g/dL Vancomycin Trough (10-20) ug/mL 02/24/25 Range/Units 09:30 WBC (4.23-9.07) x10^3/uL RBC (4.63-6.08) x10^6/uL Hgb (13.7-17.5) g/dL Hct (40.1-51.0) % MCV (79.0-92.2) fL MCH (25.7-32.2) pg MCHC (32.3-36.5) g/dL RDW (11.6-14.4) % Plt Count (163-337) x10^3/uL MPV (9.4-12.4) fL Sodium (135-145) mmol/L Potassium (3.5-5.1) mmol/L Chloride (98-107) mmol/L Carbon Dioxide (22-30) mmol/L Anion Gap (5-15) MEQ/L BUN (9-20) mg/dL Creatinine (0.66-1.25) mg/dL Estimated GFR ML/MIN Glucose (74-106) mg/dL POC Glucometer (74 to 106) mg/dL Calcium (8.4-10.2) mg/dL Total Bilirubin (0.2-1.3) mg/dL AST (17-59) U/L ALT (0-50) U/L Alkaline Phosphatase (38-126) U/L Serum Total Protein (6.3-8.2) g/dL Albumin (3.5-5.0) g/dL Vancomycin Trough 5.52 L (10-20) ug/mL Radiology Exams: Radiology Procedures Category Date Time Status CHEST 1 VIEW (PORTABLE) Urgent Exams 02/23/25 09:19 Completed FOOT (2 VIEWS) DAILY Exams 02/23/25 13:55 Completed FOOT (2 VIEWS) DAILY Exams 02/24/25 13:55 Ordered FOOT (2 VIEWS) DAILY Exams 02/25/25 13:55 Ordered FOOT (2 VIEWS) DAILY Exams 02/26/25 13:55 Ordered Medications: Medications Generic Name Dose Route Start Last Admin Trade Name Freq PRN Reason Stop Dose Admin Acetaminophen 650 mg 02/21/25 18:11 Acetaminophen 325 Mg Tablet PO 03/23/25 18:10 Q6H PRN PRN PAIN, FEVER, HEADACHE Albumin Human 50 ml 02/24/25 09:56 Albumin Human 25% 50 Ml Vial IV 02/24/25 09:57 STAT ONE Apixaban 2.5 mg 02/22/25 22:00 02/24/25 10:15 Apixaban 2.5 Mg Tablet PO 03/24/25 21:59 2.5 mg BID CARLOS Administration Aspirin 81 mg 02/22/25 17:00 02/24/25 10:15 Aspirin 81 Mg Tablet.Ec PO 03/24/25 16:59 81 mg DAILY CARLOS Administration Empagliflozin 10 mg 02/22/25 17:00 02/23/25 11:18 Empagliflozin 10 Mg Tablet PO 03/24/25 16:59 10 mg DAILY CARLOS Administration Finasteride 5 mg 02/22/25 17:00 02/24/25 10:19 Finasteride 5 Mg Tablet PO 03/24/25 16:59 5 mg DAILY CARLOS Administration Furosemide 40 mg 02/23/25 10:00 02/23/25 11:18 Furosemide 40 Mg Tablet PO 03/25/25 09:59 40 mg DAILY CARLOS Administration Hydralazine HCl 12.5 mg 02/22/25 22:00 02/24/25 10:16 Hydralazine Hcl 25 Mg Tablet PO 03/24/25 21:59 12.5 mg TID CARLOS Administration Clindamycin HCl/Dextrose 600 mg in 50 mls @ 100 mls/hr 02/21/25 22:00 02/24/25 05:29 Clindamycin-D5w 600 Mg/50 Ml IV 03/23/25 21:59 100 mls/hr Q8HT CARLOS Administration Cefepime HCl 2 g/ Sodium 100 mls @ 200 mls/hr 02/24/25 14:00 Chloride IV 03/26/25 13:59 Q8HT CARLOS Insulin Human Lispro 0 unit 02/21/25 18:11 Insulin Lispro 1 Unit SQ 03/23/25 18:10 UD PRN HYPERGLYCEMIA Isosorbide Mononitrate 30 mg 02/23/25 08:00 02/24/25 08:26 Isosorbide Mononitrate 30 Mg Tab PO 03/25/25 07:59 30 mg BREAKFAST CARLOS Administration Lactobacillus Acidophilus 1 tab 02/22/25 16:08 02/24/25 10:18 Lactobacillus Acidophilus 1 Tab Tablet PO 03/24/25 16:07 1 tab DAILY CARLOS Administration Losartan Potassium 25 mg 02/22/25 17:00 02/24/25 10:17 Losartan Potassium 50 Mg Tablet PO 03/24/25 16:59 25 mg DAILY CARLOS Administration Metoprolol Succinate 25 mg 02/22/25 22:00 02/23/25 21:26 Metoprolol Succinate 25 Mg Xl Tab PO 03/24/25 21:59 25 mg HS CARLOS Administration Pantoprazole Sodium 20 mg 02/22/25 10:00 02/24/25 10:18 Pantoprazole 20 Mg Tab PO 03/24/25 09:59 20 mg DAILY CARLOS Administration Simvastatin 40 mg 02/22/25 22:00 02/23/25 21:26 Simvastatin 20 Mg Tablet PO 03/24/25 21:59 40 mg HS CARLOS Administration Discontinued Medications Generic Name Dose Route Start Last Admin Trade Name Freq PRN Reason Stop Dose Admin Bupivacaine HCl Confirm 02/22/25 06:45 Bupivacaine Hcl 2.5 Mg/Ml 10 Ml Administered 02/22/25 06:46 Dose 10 ml .ROUTE .STK-MED ONE Bupivacaine HCl Confirm 02/22/25 07:04 Bupivacaine Hcl/Pf 150 Mg/30 Ml Vial Administered 02/22/25 07:05 Dose 150 mg .ROUTE .STK-MED ONE Device 1 02/24/25 09:30 Therapuetic Drug Level Monitor Each IJ 02/24/25 09:31 1XONLY ONE Fentanyl Citrate Confirm 02/22/25 07:11 Fentanyl Citrate 100 Mcg/2 Ml* Vial Administered 02/22/25 07:12 Dose 100 mcg .ROUTE .STK-MED ONE Piperacillin Sod/Tazobactam 100 mls @ 200 mls/hr 02/22/25 00:00 02/22/25 05:38 Sod 4.5 gm/ Sodium Chloride IV 03/24/25 00:00 200 mls/hr Q6HT CARLOS Administration Sodium Chloride 1,000 mls @ 50 mls/hr 02/21/25 18:15 02/22/25 19:24 Sodium Chloride 0.9% 1000 Ml IV 03/23/25 18:14 50 mls/hr .Q20H CARLOS Administration Sodium Chloride Confirm 02/21/25 23:29 Sodium Chloride 0.9% Administered 02/21/25 23:30 Dose 100 mls @ ud .ROUTE .STK-MED ONE Sodium Chloride Confirm 02/22/25 04:44 Sodium Chloride 0.9% Administered 02/22/25 04:45 Dose 100 mls @ ud .ROUTE .STK-MED ONE Piperacillin Sod/Tazobactam 100 mls @ 200 mls/hr 02/22/25 12:00 02/23/25 05:58 Sod 3.375 gm/ Sodium Chloride IV 02/25/25 11:59 200 mls/hr Q6HT CARLOS Administration Vancomycin HCl 500 mg/ Sodium 100 mls @ 100 mls/hr 02/22/25 10:00 02/23/25 11:22 Chloride IV 03/24/25 09:59 100 mls/hr DAILY CARLOS Administration Piperacillin Sod/Tazobactam 100 mls @ 200 mls/hr 02/23/25 12:00 02/24/25 05:04 Sod 2.25 gm/ Sodium Chloride IV 03/25/25 11:59 200 mls/hr Q6HT CARLOS Administration Lidocaine HCl Confirm 02/22/25 06:46 Lidocaine Hcl/Pf 1 % 30 Ml Pf Sdv Administered 02/22/25 06:47 Dose 30 ml IJ .STK-MED ONE Non-Formulary Medication 1 each 02/21/25 18:10 02/22/25 10:57 Pharmacy Dose Request: Vancomycin 1 Each IV 02/21/25 18:11 Not Given STAT STA Piperacillin Sod/Tazobactam Sod Confirm 02/21/25 23:29 Piperacillin/Tazobactam Sodium 4.5 Gm Vial Administered 02/21/25 23:30 Dose 4.5 gm IV .STK-MED ONE Piperacillin Sod/Tazobactam Sod Confirm 02/22/25 04:44 Piperacillin/Tazobactam Sodium 4.5 Gm Vial Administered 02/22/25 04:45 Dose 4.5 gm IV .STK-MED ONE Propofol Confirm 02/22/25 07:10 Propofol 200 Mg/20 Ml Vial Administered 02/22/25 07:11 Dose 200 mg IV .STK-MED ONE Assessment/Plan (1) Diabetic infection of left foot Current Visit: No Status: Acute Code(s): E11.628 - TYPE 2 DIABETES MELLITUS WITH OTHER SKIN COMPLICATIONS; L08.9 - LOCAL INFECTION OF THE SKIN AND SUBCUTANEOUS TISSUE, UNSP (2) Acute on chronic renal failure Current Visit: Yes Status: Acute Code(s): N17.9 - ACUTE KIDNEY FAILURE, UNSPECIFIED; N18.9 - CHRONIC KIDNEY DISEASE, UNSPECIFIED (3) Dehydration Current Visit: Yes Status: Acute Code(s): E86.0 - DEHYDRATION (4) Type 2 diabetes mellitus Current Visit: Yes Status: Chronic Qualifiers: Diabetes mellitus intermediate insulin use: without middle or intermediate school principal use Diabetes mellitus complication status: with kidney complications Diabetes mellitus complication detail: with chronic kidney disease Chronic kidney disease stage: stage 4 (GFR 15-29) Qualified Code(s): E11.22 - Type 2 diabetes mellitus with diabetic chronic kidney disease; N18.4 - Chronic kidney disease, stage 4 (severe) (5) Fall Current Visit: Yes Status: Acute Code(s): W19.XXXA - UNSPECIFIED FALL, INITIAL ENCOUNTER (6) CHF (congestive heart failure) Current Visit: Yes Status: Chronic Code(s): I50.9 - HEART FAILURE, UNSPECIFIED (7) Skin tear Current Visit: Yes Status: Acute Assessment & Plan: (1) Diabetic infection of left foot Current Visit: No Status: Acute Assessment & Plan: - NPO at midnight - Podiatry consult placed - Procedure with Dr. Burrows in AM in OR - Left foot XR -02/21 3 nonweightbearing views left foot demonstrates 1st toe soft tissue swelling with subcutaneous emphysema worrisome for gas-forming infection. Base distal 1st phalanx demonstrates moth-eaten appearance laterally favoring osteomyelitis. Elsewhere osteopenia, moderate 1st MTP bunion deformity, mild 1st MTP periarticular erosions as seen with gout, tiny posterior heel spur, and moderate scattered vascular calcifications. - Vancomycin, Zosyn, Clindamycin per podiatry orders - CBC, CMP reviewed - WBC 16 - BC x2 pending- completed OP 02/21 - Wound culture OP 02/21 completed in podiatry office 02/22 - PICC line to be placed and will be receiving OP antibiotics IV- this a correction from yesterday as thought he already had a picc line in place. - POD #1 from left foot surgery - Podiatry note pending as to what procedure was actually completed. - CBC, CMP reviewed - WBC 10.9 - Continue antibiotics - Temp 99.5 all night- tylenol PRN - Probiotics 02/23 - IV PICC line unable to be completed here as nephrology refused to clear patient for this. Nephrology explained patient would need a tunneled line however we are unable to do that at this facility and podiatry made aware of this. - BC x2 negative - CBC, CMP reviewed - BC x2 negative - Podiatry to order serial XR's when needed - Cont. IV antibiotics - Podiatry to take back to OR Wednesday or Wednesday - Podiatry note pending Code(s): E11.628 - TYPE 2 DIABETES MELLITUS WITH OTHER SKIN COMPLICATIONS; L08.9 - LOCAL INFECTION OF THE SKIN AND SUBCUTANEOUS TISSUE, UNSP (2) Acute on chronic renal failure Current Visit: Yes Status: Acute Assessment & Plan: - Creat 2.78, baseline 1.68 - NS @ 50 ml/hr- gentle hydration d/t hx of CHF 02/22 - Creat 2.58, improving - Hold Bumex - IVF 02/23 - Creat 2.97- worse - IVF stopped - Lasix restarted Code(s): N17.9 - ACUTE KIDNEY FAILURE, UNSPECIFIED; N18.9 - CHRONIC KIDNEY DISEASE, UNSPECIFIED (3) Dehydration Current Visit: Yes Status: Acute Assessment & Plan: -IVF - Anion gap 19.3- trend 02/23 - Resolved Code(s): E86.0 - DEHYDRATION (4) Type 2 diabetes mellitus Current Visit: No Status: Chronic Qualifiers: Diabetes mellitus middle or intermediate school principal insulin use: without middle or intermediate school principal use Diabetes mellitus complication status: with kidney complications Diabetes mellitus complication detail: with chronic kidney disease Chronic kidney disease stage: stage 2 (mild) Qualified Code(s): E11.22 - Type 2 diabetes mellitus with diabetic chronic kidney disease; N18.2 - Chronic kidney disease, stage 2 (mild) Assessment & Plan: - Accuchecks AC/HS - Humalog S/S - A1C 6.33- controlled (5) Fall Current Visit: Yes Status: Acute Assessment & Plan: - Ground level fall - 2:2 weakness - PT/OT Eval - Possible placement need - Right elbow bruise- no ROM concern - No LOC - CK non-concerning 02/23 - Pt agreeable to rehab if needed per CM Code(s): W19.XXXA - UNSPECIFIED FALL, INITIAL ENCOUNTER (6) CHF (congestive heart failure) Current Visit: Yes Status: Chronic Assessment & Plan: - BNP in AM - Hold Lasix for now d/t JOAN - No current echo to review - Follows Dr. Sands with cardiology 02/22 - BNP 05717 - Hold Lasix d/t JOAN- consider restarting in AM - RA 96% 02/23 - Wt pending - Resume home lasix 02/24 -CXR from 02/23: Portable chest again demonstrates moderate bilateral mid to lower lung infiltrates/atelectasis/effusions, worsened on right. Heart again borderline enlarged with CABG. Bony thorax intact again with osteopenia and degenerative changes. Code(s): I50.9 - HEART FAILURE, UNSPECIFIED (7) Skin tear Current Visit: Yes Status: Acute Assessment & Plan: - Right wrist from arm band - Steri-strips placed by nurse and wrapped VTE: SCD RLE PPI: Protonix Next of KIN: D/C plan: per podiatry Plan of care time> 40 minutes Code(s): [id number] - Code(s): [id number] -
[2025-02-24] MEDS: AlbuRx 25% 50ML VIAL IV ONE (11:06)
--- NOTE | 2025-02-24 11:07 | PCM.DS ---
Discharge Summary Date of Admission: 02/21/25 15:53 Date of Discharge: 02/24/25 Admitting Physician: BRENDON ABARCA MD Consults: Consults on Case 02/21/25 18:20 Consult Podiatry ROUTINE 02/24/25 07:34 Consult Nephrology ROUTINE Primary Care Provider: MARU SPRING Allergies Allergies codeine Adverse Reaction (Verified 02/21/25 13:00) unsteady gait tamsulosin Adverse Reaction (Verified 02/21/25 13:01) Hospital Summary - Hospital Course Hospital Course: 02/21/25 is an 85 year old male with a history of congestive heart failure, CKD, hypertension, type II diabetes mellitus, and prior CABG who was admitted on 02/21/25 for outpatient IV antibiotics via PICC line for a diabetic left foot infection. Podiatry evaluation revealed gangrene requiring surgical intervention, and he was started on vancomycin, Zosyn, and clindamycin. Initial labs showed leukocytosis with WBC 16, anion gap 19.3, and creatinine 2.78, consistent with acute on chronic kidney failure. He reported a fall the night prior, resulting in a right elbow bruise and minor head strike without loss of consciousness. On 02/22/25, he was resting in bed on postoperative day one following left foot surgery, with WBC improved to 10.9 and creatinine slightly improved to 2.58. He experienced low grade fever treated with Tylenol, and Lasix was held due to JOAN. A right wrist skin tear was treated with Steri-Strips. On 02/23/25, podiatry noted gangrene of the left great toe, which was removed with incision and drainage of bone; the surgical site was left open with plans for closure early the following week. PICC line placement was denied by nephrology, requiring a tunneled line not available at this facility. Blood cultures remained negative, IV fluids were discontinued, and creatinine worsened to 2.97. Oral Lasix was restarted, and WBC improved to 9.1. On 02/24/25, the patient developed increased edema of the right lower extremity and bilateral thighs. Chest x-ray revealed possible right sided pneumonia with effusion. Creatinine jame to 3.30, prompting nephrology to recommend transfer to [facility] for possible dialysis. After discussion, the patient and family agreed to transfer. Albumin was initiated for edema, and antibiotics were adjusted with Zosyn and vancomycin discontinued and cefepime started. Lasix and Jardiance were held. The patient denied chest pain, abdominal pain, nausea, or vomiting, but reported diarrhea, for which probiotics were continued alongside clindamycin. At discharge, he was clinically stable, resting comfortably, and awaiting transfer to [facility] for nephrology evaluation and possible dialysis. - Vitals & Intake/Output Vital Signs: Vital Signs Temperature 98.2 F 02/24/25 07:26 Pulse Rate 80 02/24/25 07:26 Respiratory Rate 18 02/24/25 07:26 Blood Pressure 139/62 02/24/25 07:26 O2 Sat by Pulse Oximetry 94 L 02/24/25 07:26 Intake & Output: Intake & Output 02/21/25 02/22/25 02/23/25 02/24/25 11:59 11:59 11:59 11:59 Intake Total 360 2057 2213 Output Total 100 300 150 Balance 260 1757 2063 Weight 71.9 kg 82 kg - Lab Result Diagrams: 02/24/25 04:15 02/24/25 04:15 Lab Results-Last 24 Hrs: Lab Results-Last 24 Hours 02/23/25 02/23/25 02/23/25 Range/Units 11:32 16:19 20:57 WBC (4.23-9.07) x10^3/uL RBC (4.63-6.08) x10^6/uL Hgb (13.7-17.5) g/dL Hct (40.1-51.0) % MCV (79.0-92.2) fL MCH (25.7-32.2) pg MCHC (32.3-36.5) g/dL RDW (11.6-14.4) % Plt Count (163-337) x10^3/uL MPV (9.4-12.4) fL Sodium (135-145) mmol/L Potassium (3.5-5.1) mmol/L Chloride (98-107) mmol/L Carbon Dioxide (22-30) mmol/L Anion Gap (5-15) MEQ/L BUN (9-20) mg/dL Creatinine (0.66-1.25) mg/dL Estimated GFR ML/MIN Glucose (74-106) mg/dL POC Glucometer 175 H 168 H 152 H (74 to 106) mg/dL Calcium (8.4-10.2) mg/dL Total Bilirubin (0.2-1.3) mg/dL AST (17-59) U/L ALT (0-50) U/L Alkaline Phosphatase (38-126) U/L Serum Total Protein (6.3-8.2) g/dL Albumin (3.5-5.0) g/dL Vancomycin Trough (10-20) ug/mL 02/24/25 02/24/25 02/24/25 Range/Units 04:15 04:15 07:14 WBC 8.3 (4.23-9.07) x10^3/uL RBC 3.03 L (4.63-6.08) x10^6/uL Hgb 9.1 L (13.7-17.5) g/dL Hct 28.8 L (40.1-51.0) % MCV 95.0 H (79.0-92.2) fL MCH 30.0 (25.7-32.2) pg MCHC 31.6 L (32.3-36.5) g/dL RDW 19.1 H (11.6-14.4) % Plt Count 256 (163-337) x10^3/uL MPV 10.9 (9.4-12.4) fL Sodium 141 (135-145) mmol/L Potassium 4.0 (3.5-5.1) mmol/L Chloride 110 H (98-107) mmol/L Carbon Dioxide 18 L (22-30) mmol/L Anion Gap 15.8 H (5-15) MEQ/L BUN 70 H (9-20) mg/dL Creatinine 3.30 H (0.66-1.25) mg/dL Estimated GFR 17.5 ML/MIN Glucose 141 H (74-106) mg/dL POC Glucometer 120 H (74 to 106) mg/dL Calcium 7.9 L (8.4-10.2) mg/dL Total Bilirubin 0.60 (0.2-1.3) mg/dL AST 26 (17-59) U/L ALT 24 (0-50) U/L Alkaline Phosphatase 77 (38-126) U/L Serum Total Protein 5.8 L (6.3-8.2) g/dL Albumin 3.0 L (3.5-5.0) g/dL Vancomycin Trough (10-20) ug/mL 02/24/25 Range/Units 09:30 WBC (4.23-9.07) x10^3/uL RBC (4.63-6.08) x10^6/uL Hgb (13.7-17.5) g/dL Hct (40.1-51.0) % MCV (79.0-92.2) fL MCH (25.7-32.2) pg MCHC (32.3-36.5) g/dL RDW (11.6-14.4) % Plt Count (163-337) x10^3/uL MPV (9.4-12.4) fL Sodium (135-145) mmol/L Potassium (3.5-5.1) mmol/L Chloride (98-107) mmol/L Carbon Dioxide (22-30) mmol/L Anion Gap (5-15) MEQ/L BUN (9-20) mg/dL Creatinine (0.66-1.25) mg/dL Estimated GFR ML/MIN Glucose (74-106) mg/dL POC Glucometer (74 to 106) mg/dL Calcium (8.4-10.2) mg/dL Total Bilirubin (0.2-1.3) mg/dL AST (17-59) U/L ALT (0-50) U/L Alkaline Phosphatase (38-126) U/L Serum Total Protein (6.3-8.2) g/dL Albumin (3.5-5.0) g/dL Vancomycin Trough 5.52 L (10-20) ug/mL Micro Results-Entire Visit: Microbiology 02/21/25 18:40 Blood Culture - Preliminary Blood 02/21/25 18:35 Blood Culture - Preliminary Blood Accuchecks Date 02/24/25 Date 02/23/25 Date 02/23/25 Time 07:26 - Radiology Exams Ordered Rad Exams-Entire Visit: Radiology Procedures Category Date Time Status CHEST 1 VIEW (PORTABLE) Urgent Exams 02/23/25 09:19 Completed FOOT (2 VIEWS) DAILY Exams 02/23/25 13:55 Completed FOOT (2 VIEWS) DAILY Exams 02/24/25 13:55 Ordered FOOT (2 VIEWS) DAILY Exams 02/25/25 13:55 Ordered FOOT (2 VIEWS) DAILY Exams 02/26/25 13:55 Ordered - Procedures and Test Procedures and Tests throughout Hospitalization: Therapy Orders & Screens 02/21/25 18:11 PT Eval & Treat ( Order) ONCE Reason for Eval:: Fall/weakness- possible need for placement Diagnosis: diabetic foot wound OT Eval and Treat ( Order) ONCE Comment: Physician Instructions: Reason For Exam: Evaluate: Yes Treat: Yes Diagnosis: fall/weakness 02/22/25 08:00 OT Screen per Nursing Assess ONCE Comment: Protocol Order Physician Instructions: Greater than 3 points order OT Admission Screening Reason For Exam: Triggered on Admission Diagnosis: diabetic left foot infection Open Wound/Cellutlitis/Pressure Ulcers: Yes Acute Fx/ORIF/Change in wt bearing status: No Severe MUSCULOSKELETAL pain: No ADL Dysfunction: No Acute CVA w/Hemiparesis/Hemiplegia: No Decreased Functional Mobility/Strength: Yes Sprain/Strain: No Acute Post-op Mobility Dysfunction: No Total Points: 6 PT Screen per Nursing Assess ONCE Comment: Protocol Order Physician Instructions: Greater than 3 points order PT Admission Screenin Reason For Exam: Triggered on Admission Diagnosis: diabetic left foot infection Open Wound/Cellutlitis/Pressure Ulcers: Yes Acute Fx/ORIF/Change in wt bearing status: No Severe MUSCULOSKELETAL pain: No ADL Dysfunction: No Acute CVA w/Hemiparesis/Hemiplegia: No Decreased Functional Mobility/Strength: Yes Sprain/Strain: No Acute Post-op Mobility Dysfunction: No Total Points: 6 Discharge Exam General Appearance: no apparent distress, alert Neurologic Exam: alert, oriented x 3, cooperative, normal mood/affect, nml cerebellar function, sensation nml, No motor deficits Eye Exam: PERRL, EOMI, eyes nml inspection Ears, Nose, Throat Exam: normal ENT inspection, pharynx normal, moist mucous membranes Neck Exam: normal inspection, non-tender, supple, full range of motion Respiratory Exam: normal breath sounds, diminished breath sounds (RLL), wheezing, No respiratory distress Cardiovascular Exam: regular rate/rhythm, normal heart sounds, edema (BL thighs and RLE + 3 pitting edema) Gastrointestinal/Abdomen Exam: soft, No tenderness, No mass Male Genitalia Exam: deferred Rectal Exam: deferred Back Exam: normal inspection, normal range of motion, No CVA tenderness, No vertebral tenderness Extremity Exam: normal inspection, normal range of motion Skin Exam: normal color, warm, dry Wound Assessment: Skin/Wound Assessment Wound/Incision Assessment Start: 02/23/25 00:20 Text: Status: Active Freq: Q6H Protocol: Document 02/24/25 09:01 RB (Rec: 02/24/25 09:07 RB [id number]) Wound/Incision Assessment Right Upper Lateral Arm Wound Assessment New Finding Wound Type Skin Tear Drainage Amount Minimal Drainage Description Sanguineous General Appearance Bleeding Surrounding Tissue Bright Red Primary Dressing Non-Adherent Gauze Pads Secondary Dressing Gauze Roll/Wrap Final Diagnosis/Problem List - Final Discharge Diagnosis/Problem (1) Diabetic infection of left foot Current Visit: No Status: Acute Code(s): E11.628 - TYPE 2 DIABETES MELLITUS WITH OTHER SKIN COMPLICATIONS; L08.9 - LOCAL INFECTION OF THE SKIN AND SUBCUTANEOUS TISSUE, UNSP (2) Acute on chronic renal failure Current Visit: Yes Status: Acute Code(s): N17.9 - ACUTE KIDNEY FAILURE, UNSPECIFIED; N18.9 - CHRONIC KIDNEY DISEASE, UNSPECIFIED (3) Dehydration Current Visit: Yes Status: Acute Code(s): E86.0 - DEHYDRATION (4) Type 2 diabetes mellitus Current Visit: Yes Status: Chronic (5) Fall Current Visit: Yes Status: Acute Code(s): W19.XXXA - UNSPECIFIED FALL, INITIAL ENCOUNTER (6) CHF (congestive heart failure) Current Visit: Yes Status: Chronic Code(s): I50.9 - HEART FAILURE, UNSPECIFIED (7) Skin tear Current Visit: Yes Status: Acute Assessment & Plan: (1) Diabetic infection of left foot Current Visit: No Status: Acute Assessment & Plan: - NPO at midnight - Podiatry consult placed - Procedure with Dr. Burrows in AM in OR - Left foot XR -02/21 3 nonweightbearing views left foot demonstrates 1st toe soft tissue swelling with subcutaneous emphysema worrisome for gas-forming infection. Base distal 1st phalanx demonstrates moth-eaten appearance laterally favoring osteomyelitis. Elsewhere osteopenia, moderate 1st MTP bunion deformity, mild 1st MTP periarticular erosions as seen with gout, tiny posterior heel spur, and moderate scattered vascular calcifications. - Vancomycin, Zosyn, Clindamycin per podiatry orders - CBC, CMP reviewed - WBC 16 - BC x2 pending- completed OP 12/3 - Wound culture OP 02/21 completed in podiatry office 02/22 - PICC line to be placed and will be receiving OP antibiotics IV- this a correction from yesterday as thought he already had a picc line in place. - POD #1 from left foot surgery - Podiatry note pending as to what procedure was actually completed. - CBC, CMP reviewed - WBC 10.9 - Continue antibiotics - Temp 99.5 all night- tylenol PRN - Probiotics 02/23 - IV PICC line unable to be completed here as nephrology refused to clear patient for this. Nephrology explained patient would need a tunneled line however we are unable to do that at this facility and podiatry made aware of this. - BC x2 negative - CBC, CMP reviewed - BC x2 negative - Podiatry to order serial XR's when needed - Cont. IV antibiotics - Podiatry to take back to OR Wednesday or Wednesday - Podiatry note pending - Daily serial XR's requested per podiatry and daily dressing changes- packing to be removed today. - Left foot XR: 2 nonweightbearing views left foot demonstrates interval total amputation great toe with presumed postoperative soft tissue swelling. Remaining foot unchanged again with chronic features including osteopenia, 1st metatarsal head periarticular erosions, tiny heel spur, and moderate scattered vascular calcifications. 02/24 - Daily Left foot XR pending - CBC, CMP reviewed - Antibiotics changed to Cefepime. - Zosyn & Vancomycin stopped d/t JOAN on CKD - Continue Clindamycin & probiotics - WBC normalized - Prostat 64 Code(s): E11.628 - TYPE 2 DIABETES MELLITUS WITH OTHER SKIN COMPLICATIONS; L08.9 - LOCAL INFECTION OF THE SKIN AND SUBCUTANEOUS TISSUE, UNSP (2) Acute on chronic renal failure Current Visit: Yes Status: Acute Assessment & Plan: - Creat 2.78, baseline 1.68 - NS @ 50 ml/hr- gentle hydration d/t hx of CHF 02/22 - Creat 2.58, improving - Hold Bumex - IVF 02/23 - Creat 2.97- worse - IVF stopped - Lasix restarted 02/24 - Creat 3.30- Hold Lasix and Jardiance - Zosyn and vanocymin stopped - Started ceftriaxone - Nephro consult- recommended tx to [facility] for possible dialysis. Code(s): N17.9 - ACUTE KIDNEY FAILURE, UNSPECIFIED; N18.9 - CHRONIC KIDNEY DISEASE, UNSPECIFIED (3) Dehydration Current Visit: Yes Status: Acute Assessment & Plan: -IVF - Anion gap 19.3- trend 02/23 - Resolved Code(s): E86.0 - DEHYDRATION (4) Type 2 diabetes mellitus Current Visit: No Status: Chronic Qualifiers: Diabetes mellitus mcfp insulin use: without mcfp use Diabetes mellitus complication status: with kidney complications Diabetes mellitus complication detail: with chronic kidney disease Chronic kidney disease stage: stage 2 (mild) Qualified Code(s): E11.22 - Type 2 diabetes mellitus with diabetic chronic kidney disease; N18.2 - Chronic kidney disease, stage 2 (mild) Assessment & Plan: - Accuchecks AC/HS - Humalog S/S - A1C 6.33- controlled (5) Fall Current Visit: Yes Status: Acute Assessment & Plan: - Ground level fall - 2:2 weakness - PT/OT Eval - Possible placement need - Right elbow bruise- no ROM concern - No LOC - CK non-concerning 02/23 - Pt agreeable to rehab if needed per CM Code(s): W19.XXXA - UNSPECIFIED FALL, INITIAL ENCOUNTER (6) CHF (congestive heart failure) Current Visit: Yes Status: Chronic Assessment & Plan: - BNP in AM - Hold Lasix for now d/t JOAN - No current echo to review - Follows Dr. Sands with cardiology 02/22 - BNP 60447 - Hold Lasix d/t JOAN- consider restarting in AM - RA 96% 02/23 - Wt pending - Resume home lasix 02/24 -CXR from 02/23: Portable chest again demonstrates moderate bilateral mid to lower lung infiltrates/atelectasis/effusions, worsened on right. Heart again borderline enlarged with CABG. Bony thorax intact again with osteopenia and degenerative changes. - Lasix held d/t increased JOAN- see plan above - Increased edema of BLLE - Albumin IV Code(s): I50.9 - HEART FAILURE, UNSPECIFIED (7) Skin tear Current Visit: Yes Status: Acute Assessment & Plan: - Right wrist from arm band - Steri-strips placed by nurse and wrapped D/C plan of care time > 40 minutes Code(s): [id number] - - Discharge Discharge Date: 02/24/25 Disposition: DC TO [facility] Condition: Stable Prescriptions: New Lactobacillus Acidophilus [Acidophilus TABLET] 1 tab PO DAILY tablet Clindamycin 600 mg/D5w 50 ml [Clindamycin-D5w 600 mg/50 ml] 600 mg IV Q8HT Cefepime HCl 2 gm [Maxipime 2 GM] 2 g IV Q8HT Continue Losartan Potassium 25 mg PO DAILY Aspirin 81 mg PO DAILY Isosorbide Mononitrate 30 mg [Imdur 30 MG] 30 mg PO BREAKFAST Hydralazine HCl 10 mg PO TID Furosemide 40 mg [Lasix 40 MG] 40 mg PO DAILY Finasteride 5 mg [Proscar 5 MG] 5 mg PO DAILY Empagliflozin [Jardiance] 10 mg PO DAILY Atorvastatin Calcium 40 mg PO HS Apixaban [Eliquis 2.5 mg Tablet] 2.5 mg PO BID Metoprolol Succinate 25 mg Xl* [Toprol-Xl 25MG Tablets] 25 mg PO HS Follow up with: INDY WALKER MD [CONSULTING PHYSICIAN, NEPHROLOGY] MARU SPRING MD [Primary Care Provider, INTERNAL MEDICINE]
[2025-02-24 11:24] VITALS: PULSE 87; RESP 20
[2025-02-24] MEDS: TROUGH DRUG LEVELS IJ ONE (11:53)
[2025-02-24] MEDS: Maxipime 2 GM** 2 G in Sodium Chloride 0.9% 100 ML IV SCH (12:24)
--- NOTE | 2025-02-24 14:58 | XRAY ---
CLINICAL HISTORY: serial daily xr - gangreene COMPARISON: None. TECHNIQUE: X-rays of the left foot were obtained in AP and lateral views. 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 Cortical erosions with sclerotic changes along the medial aspects of the metatarsal head of the 1st toe. Soft tissue haziness with air bubbles. Subluxations of the metatarsal heads of the 2nd-4th fingers. Vascular calcification. IMPRESSION: 1. 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 2. Cortical erosions with sclerotic changes along the medial aspects of the metatarsal head of the 1st toe. 3. Surrounding soft tissue swelling along the metatarsal head of the 1st toe and air locules. Possible inflammation/infection, possible post-surgical intervention, to be clinically correlated. 4. Subluxations of the metatarsal heads of the 2nd-4th fingers. DISCLAIMER:A subtle bone abnormality or fracture may not be readily apparent on x-rays, thus clinical correlation and further imaging including follow up CT, MRI, or follow up x-rays are advised as needed. Electronically Signed by: Shashank Romero MD. (02/24/2025 14:58:02 EST)
[2025-02-24 15:54] VITALS: BP 123/64; TEMP 98.2; O2SAT 95
== END 2025-02-24 19:05 | disposition home or self-care (01) | DRG 616 ==
LOC: MED SURG 15:53 → OBSVTOIN 15:53
PROVIDERS: ADMIT Internal Medicine; ATTEND Internal Medicine
PROC: 0Y6Q0Z0 Detachment at Left 1st Toe, Complete, Open Approach (ICD-10-PCS; principal; 2025-02-22)
PROC: 0Q9P0ZZ Drainage of Left Metatarsal, Open Approach (ICD-10-PCS; 2025-02-22)
DX: E11.628 Type 2 diabetes mellitus with other skin complications (principal); A48.0 Gas gangrene; E11.52 Type 2 diabetes mellitus with diabetic peripheral angiopathy with gangrene; I13.0 Hypertensive heart and chronic kidney disease with heart failure and stage 1 through stage 4 chronic kidney disease, or unspecified chronic kidney disease; E11.621 Type 2 diabetes mellitus with foot ulcer; L08.9 Local infection of the skin and subcutaneous tissue, unspecified; E11.22 Type 2 diabetes mellitus with diabetic chronic kidney disease; N18.2 Chronic kidney disease, stage 2 (mild); I50.9 Heart failure, unspecified; N17.9 Acute kidney failure, unspecified; E86.0 Dehydration; W19.XXXA Unspecified fall, initial encounter; S61.511A Laceration without foreign body of right wrist, initial encounter; M79.672 Pain in left foot; Z79.899 Other long term (current) drug therapy; Z79.01 Long term (current) use of anticoagulants; Z95.0 Presence of cardiac pacemaker
CPT/HCPCS: 28005; 28820; 36415; 71045; 73620; 80053; 80202; 82947; 83036; 83880; 85027; 87040; 97161; 97165; 99232; Q3014

== ENCOUNTER 2025-03-19 14:49 | Observation (INO) | payer MEDICARE ==
--- NOTE | 2025-03-19 15:04 | ERPHSYRPT ---
- History of Present Illness Hx Tetanus, Diphtheria Vaccination/Date Given: No Hx Influenza Vaccination/Date Given: No Hx Pneumococcal Vaccination/Date Given: No <ОЛЬГА SIFUENTES - Last Filed: 03/19/25 19:05> <DWIGHT OCONNELL - Last Filed: 03/19/25 20:56> - History of Present Illness Time Seen by Provider: 03/19/25 14:50 Physician History: [id number] M with hx of CHF with lifebelt, CKD4, and DM c/b osteomyelitis s/p recent left foot partial amputation brought in by EMS from rehab facility for increased generalized weakness and vomiting -Patient was released from [facility] following partial left amputation about a week ago and discharged to rehab facility -[place] after arriving at facility, he began complaining of increased cough and sputum production. An Xray showed PNA and patient was started on cefpodoxime, which he has been compliant with -Over the last few days, he has had daily episodes of emesis -He has also had worsening generalized weakness and is no longer progressing in his therapy -HIs brought him to the ER given concern for dehydration -He denies any associated abdominal pain, chest pain, diarrhea (ОЛЬГА SIFUENTES) Allergies/Adverse Reactions: codeine Adverse Reaction (Verified 03/19/25 15:05) unsteady gait tamsulosin Adverse Reaction (Verified 03/19/25 15:05) Home Medications: Aspirin 81 mg PO DAILY 12/16/18 [History] Losartan Potassium 25 mg PO DAILY 12/16/18 [History] Apixaban [Eliquis 2.5 mg Tablet] 2.5 mg PO BID 02/22/25 [History] Atorvastatin Calcium 40 mg PO HS 02/22/25 [History] Finasteride 5 mg [Proscar 5 MG] 5 mg PO DAILY 02/22/25 [History] Furosemide 40 mg [Lasix 40 MG] 40 mg PO DAILY 02/22/25 [History] Hydralazine HCl 10 mg PO TID 02/22/25 [History] Isosorbide Mononitrate 30 mg [Imdur 30 MG] 30 mg PO BREAKFAST 02/22/25 [History] Metoprolol Succinate 25 mg Xl* [Toprol-Xl 25MG Tablets] 25 mg PO HS 02/22/25 [History] Budesonide/Formoterol Fumarate [Budesonide-Formoterol 160-4.5] 2 puffs IH BID 03/06/25 [History] Empagliflozin [Jardiance] 10 mg PO DAILY 03/06/25 [History] Saccharomyces Boulardii 250 mg PO BID 03/06/25 [History] Acetaminophen 325 mg [Tylenol 325 mg] 650 mg PO Q4HPRN PRN 03/19/25 [History] Fluticasone Propion/Salmeterol [Fluticasone-Salmeterol 250-50] 1 each IH BID 03/19/25 [History] Ondansetron ODT 4 MG [Zofran Odt 4 mg] 4 mg PO Q6H PRN PRN 03/19/25 [History] levoFLOXacin [Levofloxacin] 500 mg PO DAILY 03/19/25 [History] Travel Risk - Emerging Infectious Disease Are you exhibiting symptoms associated with any current EIDs: No <ОЛЬГА SIFUENTES - Last Filed: 03/19/25 19:05> - Past Medical History Pertinent Past Medical History: Yes Neurological History: Stroke, TIA ENT History: Other Cardiac History: Arrhythmia, Congestive Heart Failure, Coronary Artery Disease, Hypertension Respiratory History: No Pertinent History, Other Endocrine Medical History: Diabetes Type II, Other Musculoskeletal History: No Pertinent History GI Medical History: No Pertinent History History: Renal Disease Psycho-Social History: No Pertinent History Male Reproductive Disorders: No Pertinent History Other Medical History: anemia. currently wearing life vest. Left foot - Past Surgical History Past Surgical History: Yes Neuro Surgical History: No Pertinent History Cardiac: CABG Respiratory: No Pertinent History Gastrointestinal: No Pertinent History Genitourinary: No Pertinent History Musculoskeletal: Orthopedic Surgery Male Surgical History: No Pertinent History Other Surgical History: CABG x 3, Left foot surgery 03/15 Significant Family History: no pertinent family hx - Social History Drug Use: none - Social Determinants of Health Will the patient participate in the screening: Yes Do you worry about a steady place to live?: No In the past 12 months,have you had to go without utilities?: No Transportation Issues: No Has anyone in your support network made you feel unsafe?: No Have you or anyone in your house had to go w/o enough food: No <ОЛЬГА SIFUENTES - Last Filed: 03/19/25 19:05> - Physical Exam SpO2 Interpretation: normal <ОЛЬГА SIFUENTES - Last Filed: 03/19/25 19:05> - Nursing Vital Signs Nursing Vital Signs: Initial Vital Signs Temperature 97 F 03/19/25 14:50 Pulse Rate 78 03/19/25 14:50 Respiratory Rate 22 03/19/25 14:50 Blood Pressure 129/68 03/19/25 14:50 O2 Sat by Pulse Oximetry 99 03/19/25 14:50 Pain Scale Pain Intensity 0 - Physical Exam Comments: 03/19/25 18:58 Gen: Nontoxic HEENT: NCAT, MMM CV: Ns1/s2, wwp Resp: Normal wob, +decreased WOB in LLL with associated rhonchi Abd: Nondistended MSK: JUANI Neuro: Alert and oriented x3, JUANI Psych: Speech nonpressured (ОЛЬГА SIFUENTES) Ordered Tests: Active Orders 24 hr Category Date Time Status IV Insertion STAT Care 03/19/25 15:28 Active ABDOMEN AND PELVIS W/0 CONTRAS [CT] Stat Exams 03/19/25 17:27 Taken CHEST WITHOUT CONTRAST [CT] Stat Exams 03/19/25 17:27 Taken HEAD WITHOUT CONTRAST [CT] Stat Exams 03/19/25 17:26 Taken BNPII [NT PRO BNPII] Stat Lab 03/19/25 15:25 Completed CBC W DIFF Stat Lab 03/19/25 15:25 Completed CMP Stat Lab 03/19/25 15:25 Completed CULTURE,URINE Stat Lab 03/19/25 17:30 Received UA W/RFX UR CULTURE Stat Lab 03/19/25 17:30 Completed Medication Summary Discontinued Medications Generic Name Dose Route Start Last Admin Trade Name Freq PRN Reason Stop Dose Admin Lactated Ringer's 1,000 mls @ 500 mls/hr 03/19/25 17:25 03/19/25 19:28 Lactated Ringers IV 03/19/25 19:24 Infused .Q2H ONE Infusion Lactated Ringer's Confirm 03/19/25 17:27 Lactated Ringers Administered 03/19/25 17:28 Dose 1,000 mls @ ud IV .STK-MED ONE Piperacillin Sod/Tazobactam 100 mls @ 200 mls/hr 03/19/25 18:51 03/19/25 19:58 Sod 3.375 gm/ Sodium Chloride IV 03/19/25 19:20 Infused STAT STA Infusion Sodium Chloride Confirm 03/19/25 19:25 Sodium Chloride 0.9% Administered 03/19/25 19:26 Dose 100 mls @ ud .ROUTE .STK-MED ONE Piperacillin Sod/Tazobactam Sod Confirm 03/19/25 19:25 Piperacillin/Tazobactam Sodium 3.375 Gm Vial Administered 03/19/25 19:26 Dose 3.375 gm IV .STK-MED ONE Lab/Rad Data: Laboratory Result Diagrams 03/19/25 15:25 03/19/25 15:25 Laboratory Results 03/19/25 03/19/25 03/19/25 Range/Units 17:30 15:25 15:25 WBC (4.23-9.07) x10^3/uL RBC (4.63-6.08) x10^6/uL Hgb (13.7-17.5) g/dL Hct (40.1-51.0) % MCV (79.0-92.2) fL MCH (25.7-32.2) pg MCHC (32.3-36.5) g/dL RDW (11.6-14.4) % Plt Count (163-337) x10^3/uL MPV (9.4-12.4) fL Gran % (34.0-67.9) % Immature Gran % (Auto) (0.001-0.429) % Nucleat RBC Rel Count (0.00-0.2) % Eos # (Auto) (0.04-0.54) x10^3/uL Immature Gran # (Auto) (0.001-0.031) x10^3u/L Absolute Lymphs (auto) (1.32-3.57) x10^3/uL Absolute Monos (auto) (0.30-0.82) x10^3/uL Absolute Nucleated RBC (0.00-0.012) x10^3u/L Lymphocytes % (21.8-53.1) % Monocytes % (5.3-12.2) % Eosinophils % (0.8-7.0) % Basophils % (0.2-1.2) % Absolute Granulocytes (1.78-5.38) x10^3/uL Basophils # (0.01-0.08) x10^3/uL Sodium 137 (135-145) mmol/L Potassium 4.2 (3.5-5.1) mmol/L Chloride 99 (98-107) mmol/L Carbon Dioxide 27 (22-30) mmol/L Anion Gap 15.1 H (5-15) MEQ/L BUN 91 H (9-20) mg/dL Creatinine 3.17 H (0.66-1.25) mg/dL Estimated GFR 18.4 ML/MIN Glucose 105 (74-106) mg/dL Calcium 8.7 (8.4-10.2) mg/dL Total Bilirubin 0.50 (0.2-1.3) mg/dL AST 35 (17-59) U/L ALT 29 (0-50) U/L Alkaline Phosphatase 75 (38-126) U/L NT-Pro-B Natriuret Pep 10300 (<300) pg/mL Serum Total Protein 6.1 L (6.3-8.2) g/dL Albumin 3.5 (3.5-5.0) g/dL Urine Color Yellow (Yellow) Urine Appearance Cloudy A (Clear) Urine pH 5.0 (4.6-8.0) Ur Specific [place] 1.015 (1.005-1.030) Urine Protein 30 (Negative) Urine Glucose (UA) 500 A (Negative) mg/dL Urine Ketones Negative (Negative) Urine Blood Large A (Negative) Urine Nitrite Negative (Negative) Urine Bilirubin Negative (Negative) Urine Urobilinogen 0.2 (0.2) mg/dL Ur Leukocyte Esterase Moderate A (Negative) U Hyaline Cast (Auto) None Seen (0-2) /LPF Urine Microscopic RBC 21-50 A (0-5) /HPF Urine Microscopic WBC 6-10 A (0-5) /HPF Ur Epithelial Cells Few (None Seen) /HPF Urine Bacteria Few A (None Seen) /HPF Urine Culture Reflexed YES (NO) 03/19/25 Range/Units 15:25 WBC 6.0 (4.23-9.07) x10^3/uL RBC 2.87 L (4.63-6.08) x10^6/uL Hgb 9.0 L (13.7-17.5) g/dL Hct 27.5 L (40.1-51.0) % MCV 95.8 H (79.0-92.2) fL MCH 31.4 (25.7-32.2) pg MCHC 32.7 (32.3-36.5) g/dL RDW 15.3 H (11.6-14.4) % Plt Count 92 L (163-337) x10^3/uL MPV 11.1 (9.4-12.4) fL Gran % 77.9 H (34.0-67.9) % Immature Gran % (Auto) 0.3 (0.001-0.429) % Nucleat RBC Rel Count 0.0 (0.00-0.2) % Eos # (Auto) 0.13 (0.04-0.54) x10^3/uL Immature Gran # (Auto) 0.02 (0.001-0.031) x10^3u/L Absolute Lymphs (auto) 0.83 L (1.32-3.57) x10^3/uL Absolute Monos (auto) 0.29 L (0.30-0.82) x10^3/uL Absolute Nucleated RBC 0.00 (0.00-0.012) x10^3u/L Lymphocytes % 13.9 L (21.8-53.1) % Monocytes % 4.9 L (5.3-12.2) % Eosinophils % 2.2 (0.8-7.0) % Basophils % 0.8 (0.2-1.2) % Absolute Granulocytes 4.64 (1.78-5.38) x10^3/uL Basophils # 0.05 (0.01-0.08) x10^3/uL Sodium (135-145) mmol/L Potassium (3.5-5.1) mmol/L Chloride (98-107) mmol/L Carbon Dioxide (22-30) mmol/L Anion Gap (5-15) MEQ/L BUN (9-20) mg/dL Creatinine (0.66-1.25) mg/dL Estimated GFR ML/MIN Glucose (74-106) mg/dL Calcium (8.4-10.2) mg/dL Total Bilirubin (0.2-1.3) mg/dL AST (17-59) U/L ALT (0-50) U/L Alkaline Phosphatase (38-126) U/L NT-Pro-B Natriuret Pep (<300) pg/mL Serum Total Protein (6.3-8.2) g/dL Albumin (3.5-5.0) g/dL Urine Color (Yellow) Urine Appearance (Clear) Urine pH (4.6-8.0) Ur Specific [place] (1.005-1.030) Urine Protein (Negative) Urine Glucose (UA) (Negative) mg/dL Urine Ketones (Negative) Urine Blood (Negative) Urine Nitrite (Negative) Urine Bilirubin (Negative) Urine Urobilinogen (0.2) mg/dL Ur Leukocyte Esterase (Negative) U Hyaline Cast (Auto) (0-2) /LPF Urine Microscopic RBC (0-5) /HPF Urine Microscopic WBC (0-5) /HPF Ur Epithelial Cells (None Seen) /HPF Urine Bacteria (None Seen) /HPF Urine Culture Reflexed (NO) <ОЛЬГА SIFUENTES - Last Filed: 03/19/25 19:05> - Progress Progress: improved, re-examined Counseled pt/family regarding: lab results, diagnosis, rad results <DWIGHT OCONNELL - Last Filed: 03/19/25 20:56> - Progress Progress Note: 03/19/25 19:00 -Patient presents from rehab facility with worsening generalized weakness and several days of vomiting -He has already been undergoing treatment for PNA with cefpodoxime at [facility] -His labs today are notable for mild JOAN on CKD, pyuria/UTI, normal electrolytes -His chest and abdominal CT imaging have not been read yet however there appears to a L sided PNA with an associated parapneumonic effusion. Given persistence of this infiltrate despite antibiotic therapy, there is reasonable suspicion that this could represent empyema -Plan for IVF, broadening his antibiotic therapy to zosyn, and transfer to outside facility with IR coverage for possible drainage -Patient signed out to Dr. Oconnell pending CT reads (ОЛЬГА SIFUENTES) 03/19/25 19:59 I interpreted the patient's laboratory data results that have returned. Based on the laboratory data results, the patient has chronic anemia with a hemoglobin of 9. He also has chronic kidney disease with a GFR approximately 18.6 which is in the range where he typically runs. He has a significant urinary tract infection as well. Dr. Sifuentes already provided the patient with an intravenous dose of Zosyn. I added a BNP to his labs and I am awaiting the results. The following CT scans were performed without contrast and were interpreted by the radiologist. The impressions are as follows: CT scan of the head shows a nonacute senile brain. There are no comparison studies. CT scan of the chest shows cardiomegaly with moderate bilateral effusions favoring CHF. CT scan of the abdomen pelvis shows tiny gallstones, moderate diffuse colonic fecal stasis with diarrhea. There are chronic changes of the spine. There are no comparison studies. 03/19/25 20:[address] Brewer, [facility]'s hospitalist on at this time. I reviewed the patient history, presenting complaint, physical findings on examination and workup results with him. He accepts the patient in transfer. Bed availability will likely be sometime late tomorrow morning early afternoon. We will contact our hospitalist. 03/19/25 20:49 I spoke with our telehospitalist, Dr. Ballesteros. I reviewed the patient history, presenting complaint, physical findings on examination workup results with him. We will place this patient in observation. When the bed opens up tomorrow morning or early afternoon, 03/20/2025, the patient will be transferred to [facility]. Dr. Ballesteros accepts the patient to be placed in observation (DWIGHT OCONNELL) Medical Desision Making - Independent Historian Additional History obtained from: Spouse - Discussion of managment Care discussed with:: hospitalist (Dr. Ballesteros our telehospitalist on-call) Agreed on:: place in obs - Diagnostic Testing Diagnostic test were ordered, analyzed, and reviewed by me: Yes Radiological Interpretation: Reviewed by me, Teleradiologist Report - Risk of complications The pt has a high risk of morbidity or mortality based on: Decision regarding hospitilization or escalation of hosp level of care <DWIGHT OCONNELL - Last Filed: 03/19/25 20:56> - Departure Departure Disposition: Transfer Critical Care Time: No <ОЛЬГА SIFUENTES - Last Filed: 03/19/25 19:05> - Departure Departure Disposition: Transfer Critical Care Time: No <DWIGHT OCONNELL - Last Filed: 03/19/25 20:56> - Departure Clinical Impression: Parapneumonic effusion, PNA (pneumonia), Urinary tract infection, Acute CHF, Chronic renal disease Condition: Fair Referrals: MARU SPRING MD [Primary Care Provider, [facility]] - Follow up/PCP as directed Instructions: Heart Failure
[2025-03-19 15:48] LABS: Calcium 8.7 mg/dL (8.4-10.2); Carbon Dioxide 27.0 mmol/L (22-30); Creatinine 1 3.17 mg/dL (0.66-1.25); EST GLOMERULAR FILTRATION RATE 18.4 ML/MIN; Glucose 105.0 mg/dL (74-106); Potassium 4.2 mmol/L (3.5-5.1); SGOT/AST 35.0 U/L (17-59); SGPT/ALT 29.0 U/L (0-50); Total Protein 6.1 g/dL (6.3-8.2)
[2025-03-19 16:34] LABS: BASOPHIL % 0.8 % (0.2-1.2); Basophil (Absolute #) 0.05 x10^3/uL (0.01-0.08); Eosinophil (Absolute #) 0.13 x10^3/uL (0.04-0.54); Hematocrit 27.5 % (40.1-51.0); Hemoglobin 9.0 g/dL (13.7-17.5); IMMATURE GRAN # 0.02 x10^3u/L (0.001-0.031); IMMATURE GRAN % 0.3 % (0.001-0.429); Lymphocyte (Absolute #) 0.83 x10^3/uL (1.32-3.57); Mean Corpuscular Hemoglobin 31.4 pg (25.7-32.2); Mean Corpuscular Hgb Concent. 32.7 g/dL (32.3-36.5); Monocyte (Absolute #) 0.29 x10^3/uL (0.30-0.82); NUCLEATED RBC # 0.00 x10^3u/L (0.00-0.012); NUCLEATED RBC % 0.0 % (0.00-0.2); Platelet Count 92 x10^3/uL (163-337); Red Blood Count 2.87 x10^6/uL (4.63-6.08); White Blood Count 6.0 x10^3/uL (4.23-9.07)
[2025-03-19] MEDS ORDERED: Lactated Ringers 1,000 ML IV ONE (17:27)
[2025-03-19] MEDS: Lactated Ringers 1,000 ML IV ONE (17:28)
[2025-03-19 17:54] LABS: Glucose, Urine 500 mg/dL (Negative); Protein,Urine Dip 30 (Negative)
[2025-03-19 18:20] LABS: RBC 21-50 /HPF (0-5)
[2025-03-19] MEDS ORDERED: PIPERACILLIN/TAZOBACTAM IV ONE (19:25)
[2025-03-19] MEDS ORDERED: Lasix 40 MG/4 ML ONE (20:57)
[2025-03-19] MEDS: Lasix 40 MG/4 ML IV ONE (20:58)
[2025-03-19] MEDS ORDERED: Zofran 4 MG/2 ML VIAL IV PRN (21:37)
[2025-03-19] MEDS ORDERED: HUMULIN R SQ PRN (21:37)
[2025-03-19] MEDS ORDERED: ZOFRAN ODT 4 MG PO PRN (22:22)
[2025-03-19] MEDS ORDERED: TYLENOL 325 MG PO PRN (22:22)
--- NOTE | 2025-03-19 22:37 | PCM.HP ---
History of Present Illness - Chief Complaint Chief Complaint: Acute CHF History of Present Illness: is a 85 year old male with a history of CHF with lifevest, CKD4, and diabetes complicated by osteomyelitis. He had a recent admission to [facility] where he underwent a left foot partial amputation. He was discharged about a week ago to a rehab facility. There the staff noticed he had increased generalized weakness and vomiting. Shortly after arriving to the facility he began complaining of increased cough and sputum production. An CXR was done there with suspicion for pneumonia and he was started on cefpodoxime, which he has been taking as prescribed. This did not seem to improve his symptoms, and along with the fatigue and vomiting he was brought to the ER by his . She was concerned for dehydration. He denies abdominal pain, chest pain, and diarrhea. - Review of Systems All Other Systems: Reviewed and Negative Medications & Allergies Home Medications: Home Medication List Aspirin 81 mg PO DAILY 12/16/18 [History Confirmed 03/19/25] Losartan Potassium 25 mg PO DAILY 12/16/18 [History Confirmed 03/19/25] Apixaban [Eliquis 2.5 mg Tablet] 2.5 mg PO BID 02/22/25 [History Confirmed 03/19/25] Atorvastatin Calcium 40 mg PO HS 02/22/25 [History Confirmed 03/19/25] Finasteride 5 mg [Proscar 5 MG] 5 mg PO DAILY 02/22/25 [History Confirmed 03/19/25] Furosemide 40 mg [Lasix 40 MG] 40 mg PO DAILY 02/22/25 [History Confirmed 03/19/25] Hydralazine HCl 10 mg PO TID 02/22/25 [History Confirmed 03/19/25] Isosorbide Mononitrate 30 mg [Imdur 30 MG] 30 mg PO BREAKFAST 02/22/25 [History Confirmed 03/19/25] Metoprolol Succinate 25 mg Xl* [Toprol-Xl 25MG Tablets] 25 mg PO HS 02/22/25 [History Confirmed 03/19/25] Budesonide/Formoterol Fumarate [Budesonide-Formoterol 160-4.5] 2 puffs IH BID 03/06/25 [History Confirmed 03/19/25] Empagliflozin [Jardiance] 10 mg PO DAILY 03/06/25 [History Confirmed 03/19/25] Saccharomyces Boulardii 250 mg PO BID 03/06/25 [History Confirmed 03/19/25] Acetaminophen 325 mg [Tylenol 325 mg] 650 mg PO Q4HPRN PRN 03/19/25 [History Confirmed 03/19/25] Fluticasone Propion/Salmeterol [Fluticasone-Salmeterol 250-50] 1 each IH BID 03/19/25 [History Confirmed 03/19/25] Ondansetron ODT 4 MG [Zofran Odt 4 mg] 4 mg PO Q6H PRN PRN 03/19/25 [History Confirmed 03/19/25] Allergies/Adverse Reactions: Allergies Allergy/AdvReac Type Severity Reaction Status Date / Time codeine AdvReac Verified 03/19/25 15:05 tamsulosin AdvReac Verified 03/19/25 15:05 - Past Medical History Past Medical History: Yes Neurological History: Stroke, TIA ENT History: Other Cardiac History: Arrhythmia, Congestive Heart Failure, Coronary Artery Disease, Hypertension Respiratory History: No Pertinent History, Other Endocrine Medical History: Diabetes Type II, Other Musculoskelatal History: No Pertinent History GI Medical History: No Pertinent History History: Renal Disease Pyscho-Social History: No Pertinent History Male Reproductive Disorders: No Pertinent History Comment: anemia. currently wearing life vest. Left foot - Past Surgical History Past Surgical History: Yes Neuro Surgical History: No Pertinent History Cardiac History: CABG Respiratory Surgery: No Pertinent History GI Surgical History: No Pertinent History Genitourinary Surgical Hx: No Pertinent History Musculskeletal Surgical Hx: Orthopedic Surgery Male Surgical History: No Pertinent History Other Surgical History: CABG x 3, Left foot surgery 03/15 Significant Family History: no pertinent family hx - Social History Smoking Status: Never smoker How long have you smoked: 9 YEARS Exposure to second hand smoke: No Alcohol: None Drug Use: none - Social Determinants of Health Will the patient participate in the screening: Yes Do you worry about a steady place to live?: No Do you have any problems with any of the following?: No known problems In the past 12 months,have you had to go without utilities?: No Have you or anyone in your house had to go without enough: No Transportation Issues: No Has anyone in your support network made you feel unsafe?: No Does the patient want assistance with any of the above?: No - Physical Exam Vital Signs: Vital Signs - 24 hr Temp Pulse Resp BP BP Pulse Ox 03/19/25 22:10 96 03/19/25 21:54 97.6 F 87 17 132/61 96 03/19/25 21:37 97.6 F 87 17 132/61 96 03/19/25 21:00 83 14 131/69 99 03/19/25 20:30 85 13 122/66 96 03/19/25 20:00 98 H 12 119/67 100 03/19/25 19:30 86 15 133/67 98 03/19/25 19:00 77 14 143/78 03/19/25 18:30 85 14 129/60 99 03/19/25 18:03 80 17 140/66 99 03/19/25 17:30 121/58 03/19/25 17:00 75 11 L 126/85 100 03/19/25 16:30 73 12 117/66 100 03/19/25 16:00 76 12 130/62 100 03/19/25 15:30 84 13 116/55 100 03/19/25 15:00 80 13 129/68 99 03/19/25 14:53 82 18 116/63 100 03/19/25 14:50 97 F 78 22 129/68 99 General Appearance: no apparent distress, thin Neurologic Exam: alert, oriented x 3, cooperative Eye Exam: eyes nml inspection Ears, Nose, Throat Exam: normal ENT inspection Respiratory Exam: normal breath sounds, No chest tenderness, No respiratory distress Cardiovascular Exam: regular rate/rhythm, normal heart sounds Gastrointestinal/Abdomen Exam: soft, normal bowel sounds, No tenderness Extremity Exam: normal inspection Skin Exam: normal color, warm, dry Results - Labs Lab/Micro Results: Lab Results-Last 24 Hours 03/19/25 03/19/25 03/19/25 Range/Units 15:25 15:25 15:25 WBC 6.0 (4.23-9.07) x10^3/uL RBC 2.87 L (4.63-6.08) x10^6/uL Hgb 9.0 L (13.7-17.5) g/dL Hct 27.5 L (40.1-51.0) % MCV 95.8 H (79.0-92.2) fL MCH 31.4 (25.7-32.2) pg MCHC 32.7 (32.3-36.5) g/dL RDW 15.3 H (11.6-14.4) % Plt Count 92 L (163-337) x10^3/uL MPV 11.1 (9.4-12.4) fL Gran % 77.9 H (34.0-67.9) % Immature Gran % (Auto) 0.3 (0.001-0.429) % Nucleat RBC Rel Count 0.0 (0.00-0.2) % Eos # (Auto) 0.13 (0.04-0.54) x10^3/uL Immature Gran # (Auto) 0.02 (0.001-0.031) x10^3u/L Absolute Lymphs (auto) 0.83 L (1.32-3.57) x10^3/uL Absolute Monos (auto) 0.29 L (0.30-0.82) x10^3/uL Absolute Nucleated RBC 0.00 (0.00-0.012) x10^3u/L Lymphocytes % 13.9 L (21.8-53.1) % Monocytes % 4.9 L (5.3-12.2) % Eosinophils % 2.2 (0.8-7.0) % Basophils % 0.8 (0.2-1.2) % Absolute Granulocytes 4.64 (1.78-5.38) x10^3/uL Basophils # 0.05 (0.01-0.08) x10^3/uL Sodium 137 (135-145) mmol/L Potassium 4.2 (3.5-5.1) mmol/L Chloride 99 (98-107) mmol/L Carbon Dioxide 27 (22-30) mmol/L Anion Gap 15.1 H (5-15) MEQ/L BUN 91 H (9-20) mg/dL Creatinine 3.17 H (0.66-1.25) mg/dL Estimated GFR 18.4 ML/MIN Glucose 105 (74-106) mg/dL Calcium 8.7 (8.4-10.2) mg/dL Total Bilirubin 0.50 (0.2-1.3) mg/dL AST 35 (17-59) U/L ALT 29 (0-50) U/L Alkaline Phosphatase 75 (38-126) U/L NT-Pro-B Natriuret Pep 62898 (<300) pg/mL Serum Total Protein 6.1 L (6.3-8.2) g/dL Albumin 3.5 (3.5-5.0) g/dL Urine Color (Yellow) Urine Appearance (Clear) Urine pH (4.6-8.0) Ur Specific [place] (1.005-1.030) Urine Protein (Negative) Urine Glucose (UA) (Negative) mg/dL Urine Ketones (Negative) Urine Blood (Negative) Urine Nitrite (Negative) Urine Bilirubin (Negative) Urine Urobilinogen (0.2) mg/dL Ur Leukocyte Esterase (Negative) U Hyaline Cast (Auto) (0-2) /LPF Urine Microscopic RBC (0-5) /HPF Urine Microscopic WBC (0-5) /HPF Ur Epithelial Cells (None Seen) /HPF Urine Bacteria (None Seen) /HPF Urine Culture Reflexed (NO) 03/19/25 Range/Units 17:30 WBC (4.23-9.07) x10^3/uL RBC (4.63-6.08) x10^6/uL Hgb (13.7-17.5) g/dL Hct (40.1-51.0) % MCV (79.0-92.2) fL MCH (25.7-32.2) pg MCHC (32.3-36.5) g/dL RDW (11.6-14.4) % Plt Count (163-337) x10^3/uL MPV (9.4-12.4) fL Gran % (34.0-67.9) % Immature Gran % (Auto) (0.001-0.429) % Nucleat RBC Rel Count (0.00-0.2) % Eos # (Auto) (0.04-0.54) x10^3/uL Immature Gran # (Auto) (0.001-0.031) x10^3u/L Absolute Lymphs (auto) (1.32-3.57) x10^3/uL Absolute Monos (auto) (0.30-0.82) x10^3/uL Absolute Nucleated RBC (0.00-0.012) x10^3u/L Lymphocytes % (21.8-53.1) % Monocytes % (5.3-12.2) % Eosinophils % (0.8-7.0) % Basophils % (0.2-1.2) % Absolute Granulocytes (1.78-5.38) x10^3/uL Basophils # (0.01-0.08) x10^3/uL Sodium (135-145) mmol/L Potassium (3.5-5.1) mmol/L Chloride (98-107) mmol/L Carbon Dioxide (22-30) mmol/L Anion Gap (5-15) MEQ/L BUN (9-20) mg/dL Creatinine (0.66-1.25) mg/dL Estimated GFR ML/MIN Glucose (74-106) mg/dL Calcium (8.4-10.2) mg/dL Total Bilirubin (0.2-1.3) mg/dL AST (17-59) U/L ALT (0-50) U/L Alkaline Phosphatase (38-126) U/L NT-Pro-B Natriuret Pep (<300) pg/mL Serum Total Protein (6.3-8.2) g/dL Albumin (3.5-5.0) g/dL Urine Color Yellow (Yellow) Urine Appearance Cloudy A (Clear) Urine pH 5.0 (4.6-8.0) Ur Specific [place] 1.015 (1.005-1.030) Urine Protein 30 (Negative) Urine Glucose (UA) 500 A (Negative) mg/dL Urine Ketones Negative (Negative) Urine Blood Large A (Negative) Urine Nitrite Negative (Negative) Urine Bilirubin Negative (Negative) Urine Urobilinogen 0.2 (0.2) mg/dL Ur Leukocyte Esterase Moderate A (Negative) U Hyaline Cast (Auto) None Seen (0-2) /LPF Urine Microscopic RBC 21-50 A (0-5) /HPF Urine Microscopic WBC 6-10 A (0-5) /HPF Ur Epithelial Cells Few (None Seen) /HPF Urine Bacteria Few A (None Seen) /HPF Urine Culture Reflexed YES (NO) - Radiology Impressions Radiology Exams & Impressions: Radiology Procedures Category Date Time Status ABDOMEN AND PELVIS W/0 CONTRAS [CT] Stat Exams 03/19/25 17:27 Taken CHEST WITHOUT CONTRAST [CT] Stat Exams 03/19/25 17:27 Taken HEAD WITHOUT CONTRAST [CT] Stat Exams 03/19/25 17:26 Taken Assessment/Plan (1) Acute congestive heart failure with left ventricular diastolic dysfunction Current Visit: No Status: Acute Assessment & Plan: He was given a dose of IV lasix in the ER. Can monitor urine response and consider additional IV diuresis in the morning. Will monitor Cr and K closely due to CKD4. Code(s): I50.31 - ACUTE DIASTOLIC (CONGESTIVE) HEART FAILURE (2) Type 2 diabetes mellitus Current Visit: No Status: Chronic Qualifiers: Assessment & Plan: Can start with sliding scale insulin coverage. (3) Renal insufficiency Current Visit: No Status: Acute Assessment & Plan: Cr 3.17 on admission, will monitor trend with AM check (4) Urinary tract infection Current Visit: Yes Status: Acute Assessment & Plan: UA with signs of UTI and nonspecific symptoms, no signs of systemic infection at the moment. Received IV Zosyn in ER and reflex Urine Cx being run. Code(s): N39.0 - URINARY TRACT INFECTION, SITE NOT SPECIFIED
[2025-03-19 23:23] LABS: Slide Review 1 YES
[2025-03-20] MEDS: TYLENOL 325 MG PO PRN (04:23)
[2025-03-20 06:18] LABS: BASOPHIL % 0.5 % (0.2-1.2); Basophil (Absolute #) 0.03 x10^3/uL (0.01-0.08); Eosinophil (Absolute #) 0.28 x10^3/uL (0.04-0.54); Hematocrit 22.3 % (40.1-51.0); Hemoglobin 7.4 g/dL (13.7-17.5); IMMATURE GRAN # 0.02 x10^3u/L (0.001-0.031); IMMATURE GRAN % 0.4 % (0.001-0.429); Lymphocyte (Absolute #) 0.65 x10^3/uL (1.32-3.57); Mean Corpuscular Hemoglobin 31.0 pg (25.7-32.2); Mean Corpuscular Hgb Concent. 33.2 g/dL (32.3-36.5); Monocyte (Absolute #) 0.30 x10^3/uL (0.30-0.82); NUCLEATED RBC # 0.00 x10^3u/L (0.00-0.012); NUCLEATED RBC % 0.0 % (0.00-0.2); Platelet Count 77 x10^3/uL (163-337); Red Blood Count 2.39 x10^6/uL (4.63-6.08); White Blood Count 5.7 x10^3/uL (4.23-9.07)
[2025-03-20 06:55] LABS: Calcium 8.3 mg/dL (8.4-10.2); Carbon Dioxide 26.0 mmol/L (22-30); Creatinine 1 2.94 mg/dL (0.66-1.25); EST GLOMERULAR FILTRATION RATE 20.1 ML/MIN; Glucose 88.0 mg/dL (74-106); Potassium 4.0 mmol/L (3.5-5.1); SGOT/AST 30.0 U/L (17-59); SGPT/ALT 24.0 U/L (0-50); Slide Review 1 YES; Total Protein 5.4 g/dL (6.3-8.2)
[2025-03-20] MEDS ORDERED: HUMALOG SQ PRN (07:44)
[2025-03-20] MEDS: Compazine 10 MG/2 ML IM PRN (08:27)
[2025-03-20] MEDS: ROCEPHIN 1 GM / 100 ML NaCl 1 GM/100 ML IVPB IV SCH (08:30)
[2025-03-20] MEDS: Imdur 30 MG PO SCH (08:34)
--- NOTE | 2025-03-20 08:37 | XRAY ---
Indication: Vomiting. Multiple contiguous axial images obtained through the head without contrast. Comparison: None Age-appropriate global atrophy and moderate/advanced periventricular degenerative microischemia bilaterally. No acute intracranial hemorrhage, abnormal extra-axial fluid collection, or mass effect. 4th ventricle is midline without hydrocephalus. Bony calvarium intact. Visualized paranasal sinuses and mastoid air cells are clear. Impression: Nonacute senile brain.
[2025-03-20] MEDS: Advair Hfa 115/21 Common canister IH SCH (08:39)
--- NOTE | 2025-03-20 08:43 | XRAY ---
Indication: Vomiting. Short of breath. Multiple contiguous axial images obtained through the chest without contrast. Comparison: None Heart enlarged with aortic/mitral valve calcifications, scattered coronary calcifications, and CABG surgery. Aorta is moderately arteriosclerotic without aneurysm. Small distal paraesophageal calcified node. No pathologic mediastinal lymphadenopathy. Lungs demonstrates moderate bilateral effusions with mild bibasilar compressive atelectasis, [id number]. Remaining upper lungs clear. Bony thorax intact with osteopenia, minimal/mild degenerative changes throughout spine, and old right 9-[address] abdomen/pelvis reported separately. Impression: 1. Cardiomegaly with bilateral effusions favoring cardiac decompensation/CHF versus fluid overload. 2. Chronic findings including arteriosclerotic disease, chronic bony findings, and old granulomatous disease.
--- NOTE | 2025-03-20 08:45 | XRAY ---
Indication: Vomiting. Multiple contiguous axial images obtained through the abdomen and pelvis without contrast. Comparison: None CT chest reported separately. Noncontrasted stomach and bowel loops appear nonobstructed. There is moderate diffuse scattered colonic fecal debris and diarrhea. Gallbladder mildly distended with tiny gallstones/gravel in the neck of the gallbladder. A few tiny splenic calcified granulomas. Near empty urinary bladder demonstrates Damon balloon catheter in Situ. No free fluid/air. Remaining liver, pancreas, adrenal glands, kidneys, and ureters are unremarkable for noncontrast exam. Extensive scattered vascular calcifications without AAA. Osseous structures demonstrates osteopenia, mild/moderate multilevel degenerative spondylosis, and remote appearing L3 superior endplate fracture with approximately 50% height loss. Impression: 1. Diffuse colonic fecal stasis with diarrhea. 2. Tiny gallstones/gravel better evaluated with sonogram if clinically warranted. 3. Chronic findings including arteriosclerotic disease and chronic bony findings.
[2025-03-20] MEDS: ZITHROMAX IV*** 500 MG in Sodium Chloride 0.9% 250 ML 250 ML IV SCH (09:03)
[2025-03-20 09:38] LABS: Iron 152 ug/dL (49-181); TIBC 162 ug/dL (261-497)
[2025-03-20 09:47] LABS: Ferritin 409.0 ng/mL (17.9-464)
[2025-03-20] MEDS ORDERED: NON-FORMULARY ITEM (Budesonide/Formoterol Fumarate [Budesonide-Formoterol 160-4.5] 10.2 GM IH SCH (10:00)
[2025-03-20] MEDS ORDERED: Lasix 40 MG/4 ML IV SCH (10:00)
[2025-03-20] MEDS: Lasix 40 MG/4 ML IV SCH (11:42)
--- NOTE | 2025-03-20 13:34 | PCM.NOTE ---
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 He had recently been discharged from [facility] following a left foot partial amputation. A chest X-ray at the facility was concerning for pneumonia, and he was started on cefpodoxime without improvement. His brought him to the ER due to worsening fatigue, vomiting, and concern for dehydration. He denied abdominal pain, chest pain, or diarrhea. He was diagnosed with pneumonia, UTI, and CHF exacerbation. On 03/20 he was resting in bed and sleeping much of the time. His creatinine improved to 2.94 from admission, near his baseline of 2.56, consistent with chronic kidney disease. He remained in his LifeVest. Hemoglobin decreased from 9.0 to 7.4, and occult stool testing along with iron studies were ordered for further evaluation. Ceftriaxone and azithromycin were continued for treatment of pneumonia and UTI. Chest CT demonstrated cardiomegaly with bilateral effusions consistent with CHF or fluid overload, along with chronic arteriosclerotic and bony changes and old granulomatous disease. CT abdomen/pelvis showed diffuse colonic fecal stasis with diarrhea, tiny gallstones, and additional chronic findings. Head CT revealed nonacute senile changes. The patient continues to await transfer to [facility], which his strongly prefers as all of his specialists are located there; she declines transfer to any other facility. Lasix is being continued for CHF management. The patient remains clinically stable while awaiting bed availability. - Review of Systems Constitutional: Fatigue, Lethargy, Weight Loss, No Fever, No Chills Eyes: No Symptoms Ears, Nose, & Throat: No Symptoms Respiratory: No Cough, No Short Of Breath Cardiac: No Chest Pain, No Edema, No Syncope Abdominal/Gastrointestinal: No Abdominal Pain, No Nausea, No Vomiting, No Diarrhea Genitourinary Symptoms: No Dysuria Musculoskeletal: No Back Pain, No Neck Pain Skin: No Rash Neurological: No Dizziness, No Focal Weakness, No Sensory Changes Psychological: No Symptoms Endocrine: No Symptoms Hematologic/Lymphatic: No Symptoms Immunological/Allergic: No Symptoms Objective Exam General Appearance: no apparent distress, alert Neurologic Exam: alert, oriented x 3, cooperative, normal mood/affect, nml c erebellar function, sensation nml, motor weakness, No motor deficits Skin Exam: normal color, warm, dry Eye Exam: PERRL, EOMI, eyes nml inspection Ears, Nose, Throat Exam: normal ENT inspection, pharynx normal, moist mucous membranes Neck Exam: normal inspection, non-tender, supple, full range of motion Respiratory Exam: normal breath sounds, lungs clear, No respiratory distress Cardiovascular Exam: regular rate/rhythm, normal heart sounds Gastrointestinal/Abdomen Exam: soft, No tenderness, No mass Extremity Exam: normal inspection, normal range of motion Back Exam: normal inspection, normal range of motion, No CVA tenderness, No vertebral tenderness Male Genitalia Exam: deferred Rectal Exam: deferred Objective Data Vital Signs: Vital Signs - 24 hr Temp Pulse Resp BP BP Pulse Ox 03/20/25 11:36 98.4 F 69 16 136/60 94 L 03/20/25 08:39 70 16 95 03/20/25 07:51 98.0 F 72 16 141/62 96 03/20/25 04:00 97.9 F 84 17 98/46 96 03/19/25 22:47 97.6 F 87 17 132/61 96 03/19/25 22:10 96 03/19/25 21:54 97.6 F 87 17 132/61 96 03/19/25 21:37 97.6 F 87 17 132/61 96 03/19/25 21:00 83 14 131/69 99 03/19/25 20:30 85 13 122/66 96 03/19/25 20:00 98 H 12 119/67 100 03/19/25 19:30 86 15 133/67 98 03/19/25 19:00 77 14 143/78 03/19/25 18:30 85 14 129/60 99 03/19/25 18:03 80 17 140/66 99 03/19/25 17:30 121/58 03/19/25 17:00 75 11 L 126/85 100 03/19/25 16:30 73 12 117/66 100 03/19/25 16:00 76 12 130/62 100 03/19/25 15:30 84 13 116/55 100 03/19/25 15:00 80 13 129/68 99 03/19/25 14:53 82 18 116/63 100 03/19/25 14:50 97 F 78 22 129/68 99 Pain Assessment - Last Documented Pain Intensity 1 Pain Scale Used 0-10 Pain Scale Intake and Output: Intake & Output 03/18/25 03/19/25 03/20/25 03/21/25 11:59 11:59 11:59 11:59 Intake Total 120 Output Total 750 Balance -630 Weight 68.3 kg Lab Results: Lab Results-Last 24 Hours 03/19/25 03/19/25 03/19/25 Range/Units 15:25 15:25 15:25 WBC 6.0 (4.23-9.07) x10^3/uL RBC 2.87 L (4.63-6.08) x10^6/uL Hgb 9.0 L (13.7-17.5) g/dL Hct 27.5 L (40.1-51.0) % MCV 95.8 H (79.0-92.2) fL MCH 31.4 (25.7-32.2) pg MCHC 32.7 (32.3-36.5) g/dL RDW 15.3 H (11.6-14.4) % Plt Count 92 L (163-337) x10^3/uL MPV 11.1 (9.4-12.4) fL Gran % 77.9 H (34.0-67.9) % Immature Gran % (Auto) 0.3 (0.001-0.429) % Nucleat RBC Rel Count 0.0 (0.00-0.2) % Eos # (Auto) 0.13 (0.04-0.54) x10^3/uL Immature Gran # (Auto) 0.02 (0.001-0.031) x10^3u/L Absolute Lymphs (auto) 0.83 L (1.32-3.57) x10^3/uL Absolute Monos (auto) 0.29 L (0.30-0.82) x10^3/uL Absolute Nucleated RBC 0.00 (0.00-0.012) x10^3u/L Lymphocytes % 13.9 L (21.8-53.1) % Monocytes % 4.9 L (5.3-12.2) % Eosinophils % 2.2 (0.8-7.0) % Basophils % 0.8 (0.2-1.2) % Absolute Granulocytes 4.64 (1.78-5.38) x10^3/uL Basophils # 0.05 (0.01-0.08) x10^3/uL Sodium 137 (135-145) mmol/L Potassium 4.2 (3.5-5.1) mmol/L Chloride 99 (98-107) mmol/L Carbon Dioxide 27 (22-30) mmol/L Anion Gap 15.1 H (5-15) MEQ/L BUN 91 H (9-20) mg/dL Creatinine 3.17 H (0.66-1.25) mg/dL Estimated GFR 18.4 ML/MIN Glucose 105 (74-106) mg/dL POC Glucometer (74 to 106) mg/dL Calcium 8.7 (8.4-10.2) mg/dL Iron (49-181) ug/dL TIBC (261-497) ug/dL Iron Saturation (20-39) % Ferritin (17.9-464) ng/mL Total Bilirubin 0.50 (0.2-1.3) mg/dL AST 35 (17-59) U/L ALT 29 (0-50) U/L Alkaline Phosphatase 75 (38-126) U/L NT-Pro-B Natriuret Pep 37672 (<300) pg/mL Serum Total Protein 6.1 L (6.3-8.2) g/dL Albumin 3.5 (3.5-5.0) g/dL Vitamin B12 (239-931) pg/mL Folic Acid (2.76 - >20) ng/mL Urine Color (Yellow) Urine Appearance (Clear) Urine pH (4.6-8.0) Ur Specific [place] (1.005-1.030) Urine Protein (Negative) Urine Glucose (UA) (Negative) mg/dL Urine Ketones (Negative) Urine Blood (Negative) Urine Nitrite (Negative) Urine Bilirubin (Negative) Urine Urobilinogen (0.2) mg/dL Ur Leukocyte Esterase (Negative) U Hyaline Cast (Auto) (0-2) /LPF Urine Microscopic RBC (0-5) /HPF Urine Microscopic WBC (0-5) /HPF Ur Epithelial Cells (None Seen) /HPF Urine Bacteria (None Seen) /HPF Urine Culture Reflexed (NO) Slides for Path Review YES 03/19/25 03/19/25 03/20/25 Range/Units 17:30 23:04 05:30 WBC 5.7 (4.23-9.07) x10^3/uL RBC 2.39 L (4.63-6.08) x10^6/uL Hgb 7.4 L (13.7-17.5) g/dL Hct 22.3 L (40.1-51.0) % MCV 93.3 H (79.0-92.2) fL MCH 31.0 (25.7-32.2) pg MCHC 33.2 (32.3-36.5) g/dL RDW 15.2 H (11.6-14.4) % Plt Count 77 L (163-337) x10^3/uL MPV 10.7 (9.4-12.4) fL Gran % 77.4 H (34.0-67.9) % Immature Gran % (Auto) 0.4 (0.001-0.429) % Nucleat RBC Rel Count 0.0 (0.00-0.2) % Eos # (Auto) 0.28 (0.04-0.54) x10^3/uL Immature Gran # (Auto) 0.02 (0.001-0.031) x10^3u/L Absolute Lymphs (auto) 0.65 L (1.32-3.57) x10^3/uL Absolute Monos (auto) 0.30 (0.30-0.82) x10^3/uL Absolute Nucleated RBC 0.00 (0.00-0.012) x10^3u/L Lymphocytes % 11.5 L (21.8-53.1) % Monocytes % 5.3 (5.3-12.2) % Eosinophils % 4.9 (0.8-7.0) % Basophils % 0.5 (0.2-1.2) % Absolute Granulocytes 4.39 (1.78-5.38) x10^3/uL Basophils # 0.03 (0.01-0.08) x10^3/uL Sodium (135-145) mmol/L Potassium (3.5-5.1) mmol/L Chloride (98-107) mmol/L Carbon Dioxide (22-30) mmol/L Anion Gap (5-15) MEQ/L BUN (9-20) mg/dL Creatinine (0.66-1.25) mg/dL Estimated GFR ML/MIN Glucose (74-106) mg/dL POC Glucometer 90 (74 to 106) mg/dL Calcium (8.4-10.2) mg/dL Iron (49-181) ug/dL TIBC (261-497) ug/dL Iron Saturation (20-39) % Ferritin (17.9-464) ng/mL Total Bilirubin (0.2-1.3) mg/dL AST (17-59) U/L ALT (0-50) U/L Alkaline Phosphatase (38-126) U/L NT-Pro-B Natriuret Pep (<300) pg/mL Serum Total Protein (6.3-8.2) g/dL Albumin (3.5-5.0) g/dL Vitamin B12 (239-931) pg/mL Folic Acid (2.76 - >20) ng/mL Urine Color Yellow (Yellow) Urine Appearance Cloudy A (Clear) Urine pH 5.0 (4.6-8.0) Ur Specific [place] 1.015 (1.005-1.030) Urine Protein 30 (Negative) Urine Glucose (UA) 500 A (Negative) mg/dL Urine Ketones Negative (Negative) Urine Blood Large A (Negative) Urine Nitrite Negative (Negative) Urine Bilirubin Negative (Negative) Urine Urobilinogen 0.2 (0.2) mg/dL Ur Leukocyte Esterase Moderate A (Negative) U Hyaline Cast (Auto) None Seen (0-2) /LPF Urine Microscopic RBC 21-50 A (0-5) /HPF Urine Microscopic WBC 6-10 A (0-5) /HPF Ur Epithelial Cells Few (None Seen) /HPF Urine Bacteria Few A (None Seen) /HPF Urine Culture Reflexed YES (NO) Slides for Path Review YES 03/20/25 03/20/25 03/20/25 Range/Units 05:30 05:30 05:30 WBC (4.23-9.07) x10^3/uL RBC (4.63-6.08) x10^6/uL Hgb (13.7-17.5) g/dL Hct (40.1-51.0) % MCV (79.0-92.2) fL MCH (25.7-32.2) pg MCHC (32.3-36.5) g/dL RDW (11.6-14.4) % Plt Count (163-337) x10^3/uL MPV (9.4-12.4) fL Gran % (34.0-67.9) % Immature Gran % (Auto) (0.001-0.429) % Nucleat RBC Rel Count (0.00-0.2) % Eos # (Auto) (0.04-0.54) x10^3/uL Immature Gran # (Auto) (0.001-0.031) x10^3u/L Absolute Lymphs (auto) (1.32-3.57) x10^3/uL Absolute Monos (auto) (0.30-0.82) x10^3/uL Absolute Nucleated RBC (0.00-0.012) x10^3u/L Lymphocytes % (21.8-53.1) % Monocytes % (5.3-12.2) % Eosinophils % (0.8-7.0) % Basophils % (0.2-1.2) % Absolute Granulocytes (1.78-5.38) x10^3/uL Basophils # (0.01-0.08) x10^3/uL Sodium 136 (135-145) mmol/L Potassium 4.0 (3.5-5.1) mmol/L Chloride 100 (98-107) mmol/L Carbon Dioxide 26 (22-30) mmol/L Anion Gap 13.8 (5-15) MEQ/L BUN 83 H (9-20) mg/dL Creatinine 2.94 H (0.66-1.25) mg/dL Estimated GFR 20.1 ML/MIN Glucose 88 (74-106) mg/dL POC Glucometer (74 to 106) mg/dL Calcium 8.3 L (8.4-10.2) mg/dL Iron 152 (49-181) ug/dL TIBC 162 L (261-497) ug/dL Iron Saturation 94 H (20-39) % Ferritin 409 (17.9-464) ng/mL Total Bilirubin 0.60 (0.2-1.3) mg/dL AST 30 (17-59) U/L ALT 24 (0-50) U/L Alkaline Phosphatase 70 (38-126) U/L NT-Pro-B Natriuret Pep 07615 (<300) pg/mL Serum Total Protein 5.4 L (6.3-8.2) g/dL Albumin 3.0 L (3.5-5.0) g/dL Vitamin B12 712 (239-931) pg/mL Folic Acid 6.83 (2.76 - >20) ng/mL Urine Color (Yellow) Urine Appearance (Clear) Urine pH (4.6-8.0) Ur Specific [place] (1.005-1.030) Urine Protein (Negative) Urine Glucose (UA) (Negative) mg/dL Urine Ketones (Negative) Urine Blood (Negative) Urine Nitrite (Negative) Urine Bilirubin (Negative) Urine Urobilinogen (0.2) mg/dL Ur Leukocyte Esterase (Negative) U Hyaline Cast (Auto) (0-2) /LPF Urine Microscopic RBC (0-5) /HPF Urine Microscopic WBC (0-5) /HPF Ur Epithelial Cells (None Seen) /HPF Urine Bacteria (None Seen) /HPF Urine Culture Reflexed (NO) Slides for Path Review 03/20/25 03/20/25 Range/Units 07:09 11:06 WBC (4.23-9.07) x10^3/uL RBC (4.63-6.08) x10^6/uL Hgb (13.7-17.5) g/dL Hct (40.1-51.0) % MCV (79.0-92.2) fL MCH (25.7-32.2) pg MCHC (32.3-36.5) g/dL RDW (11.6-14.4) % Plt Count (163-337) x10^3/uL MPV (9.4-12.4) fL Gran % (34.0-67.9) % Immature Gran % (Auto) (0.001-0.429) % Nucleat RBC Rel Count (0.00-0.2) % Eos # (Auto) (0.04-0.54) x10^3/uL Immature Gran # (Auto) (0.001-0.031) x10^3u/L Absolute Lymphs (auto) (1.32-3.57) x10^3/uL Absolute Monos (auto) (0.30-0.82) x10^3/uL Absolute Nucleated RBC (0.00-0.012) x10^3u/L Lymphocytes % (21.8-53.1) % Monocytes % (5.3-12.2) % Eosinophils % (0.8-7.0) % Basophils % (0.2-1.2) % Absolute Granulocytes (1.78-5.38) x10^3/uL Basophils # (0.01-0.08) x10^3/uL Sodium (135-145) mmol/L Potassium (3.5-5.1) mmol/L Chloride (98-107) mmol/L Carbon Dioxide (22-30) mmol/L Anion Gap (5-15) MEQ/L BUN (9-20) mg/dL Creatinine (0.66-1.25) mg/dL Estimated GFR ML/MIN Glucose (74-106) mg/dL POC Glucometer 90 97 (74 to 106) mg/dL Calcium (8.4-10.2) mg/dL Iron (49-181) ug/dL TIBC (261-497) ug/dL Iron Saturation (20-39) % Ferritin (17.9-464) ng/mL Total Bilirubin (0.2-1.3) mg/dL AST (17-59) U/L ALT (0-50) U/L Alkaline Phosphatase (38-126) U/L NT-Pro-B Natriuret Pep (<300) pg/mL Serum Total Protein (6.3-8.2) g/dL Albumin (3.5-5.0) g/dL Vitamin B12 (239-931) pg/mL Folic Acid (2.76 - >20) ng/mL Urine Color (Yellow) Urine Appearance (Clear) Urine pH (4.6-8.0) Ur Specific [place] (1.005-1.030) Urine Protein (Negative) Urine Glucose (UA) (Negative) mg/dL Urine Ketones (Negative) Urine Blood (Negative) Urine Nitrite (Negative) Urine Bilirubin (Negative) Urine Urobilinogen (0.2) mg/dL Ur Leukocyte Esterase (Negative) U Hyaline Cast (Auto) (0-2) /LPF Urine Microscopic RBC (0-5) /HPF Urine Microscopic WBC (0-5) /HPF Ur Epithelial Cells (None Seen) /HPF Urine Bacteria (None Seen) /HPF Urine Culture Reflexed (NO) Slides for Path Review Radiology Exams: Radiology Procedures Category Date Time Status ABDOMEN AND PELVIS W/0 CONTRAS [CT] Stat Exams 03/19/25 17:27 Completed CHEST WITHOUT CONTRAST [CT] Stat Exams 03/19/25 17:27 Completed HEAD WITHOUT CONTRAST [CT] Stat Exams 03/19/25 17:26 Completed Medications: Medications Generic Name Dose Route Start Last Admin Trade Name Freq PRN Reason Stop Dose Admin Acetaminophen 650 mg 03/19/25 21:37 03/20/25 04:23 Acetaminophen 325 Mg Tablet PO 04/18/25 21:36 650 mg Q4H PRN PRN Administration PAIN, FEVER, HEADACHE Apixaban 2.5 mg 03/20/25 10:00 Apixaban 2.5 Mg Tablet PO 04/19/25 09:59 BID CARLOS Aspirin 81 mg 03/20/25 10:00 Aspirin 81 Mg Tablet.Ec PO 04/19/25 09:59 DAILY CARLOS Empagliflozin 10 mg 03/20/25 10:00 Empagliflozin 10 Mg Tablet PO 04/19/25 09:59 DAILY CARLOS Finasteride 5 mg 03/20/25 10:00 Finasteride 5 Mg Tablet PO 04/19/25 09:59 DAILY CARLOS Furosemide 40 mg 03/20/25 10:00 03/20/25 11:42 Furosemide 40 Mg/4 Ml Vial IV 04/19/25 09:59 40 mg BID DIURETIC CARLOS Administration Hydralazine HCl 12.5 mg 03/20/25 10:00 Hydralazine Hcl 25 Mg Tablet PO 04/19/25 09:59 TID CARLOS Azithromycin 500 mg/ Sodium 250 mls @ 250 mls/hr 03/20/25 10:00 03/20/25 09:03 Chloride IV 04/19/25 09:59 250 mls/hr Q24H10 CARLOS Administration Ceftriaxone Sodium 1 gm in 100 mls @ 200 mls/hr 03/20/25 10:00 03/20/25 08:30 Rocephin 1 Gm / 100 Ml Nacl IV 04/19/25 09:59 200 mls/hr Q24H10 CARLOS Administration Insulin Human Lispro 0 unit 03/20/25 07:44 Insulin Lispro 1 Unit SQ 04/19/25 07:43 UD PRN HYPERGLYCEMIA Isosorbide Mononitrate 30 mg 03/20/25 08:00 03/20/25 08:34 Isosorbide Mononitrate 30 Mg Tab PO 04/19/25 07:59 30 mg BREAKFAST CARLOS Administration Lactobacillus Acidophilus 1 tab 03/20/25 10:00 Lactobacillus Acidophilus 1 Tab Tablet PO 04/19/25 09:59 BID CARLOS Metoprolol Succinate 25 mg 03/20/25 22:00 Metoprolol Succinate 25 Mg Xl Tab PO 04/19/25 21:59 HS CARLOS Prochlorperazine Edisylate 10 mg 03/20/25 08:18 03/20/25 08:27 Prochlorperazine Edisylate 10 Mg/2 Ml Vial IM 04/19/25 08:17 10 mg Q6H PRN PRN Administration NAUSEA/VOMITING Fluticasone/Salmeterol 2 puff 03/20/25 07:00 03/20/25 08:39 Fluticasone/Salmeterol 115/21 60 Puff Aer.W.Adap IH 04/19/25 06:59 2 puff BIDRT CARLOS Administration Simvastatin 40 mg 03/20/25 22:00 Simvastatin 20 Mg Tablet PO 04/19/25 21:59 HS [facility] Discontinued Medications Generic Name Dose Route Start Last Admin Trade Name Freq PRN Reason Stop Dose Admin Acetaminophen 650 mg 03/19/25 22:22 Acetaminophen 325 Mg Tablet PO 04/18/25 22:21 Q4HPRN PRN PAIN Furosemide 40 mg 03/19/25 20:50 03/19/25 20:58 Furosemide 40 Mg/4 Ml Vial IV 03/19/25 20:51 40 mg STAT ONE Administration Furosemide Confirm 03/19/25 20:57 Furosemide 40 Mg/4 Ml Vial Administered 03/19/25 20:58 Dose 40 mg .ROUTE .STK-MED ONE Furosemide 80 mg 03/20/25 10:00 Furosemide 40 Mg/4 Ml Vial IV 04/19/25 09:59 BID DIURETIC CARLOS Lactated Ringer's 1,000 mls @ 500 mls/hr 03/19/25 17:25 03/19/25 19:28 Lactated Ringers IV 03/19/25 19:24 Infused .Q2H ONE Infusion Lactated Ringer's Confirm 03/19/25 17:27 Lactated Ringers Administered 03/19/25 17:28 Dose 1,000 mls @ ud IV .STK-MED ONE Piperacillin Sod/Tazobactam 100 mls @ 200 mls/hr 03/19/25 18:51 03/19/25 19:58 Sod 3.375 gm/ Sodium Chloride IV 03/19/25 19:20 Infused STAT STA Infusion Sodium Chloride Confirm 03/19/25 19:25 Sodium Chloride 0.9% Administered 03/19/25 19:26 Dose 100 mls @ ud .ROUTE .STK-MED ONE Insulin Human Regular 0 unit 03/19/25 21:37 Insulin Regular, Human 1 Unit SQ 04/18/25 21:36 UD PRN HYPERGLYCEMIA Ondansetron HCl 4 mg 03/19/25 21:37 Ondansetron Hcl 4 Mg/2 Ml Vial IV 04/18/25 21:36 Q6H PRN PRN NAUSEA/VOMITING Ondansetron HCl 4 mg 03/19/25 22:22 Zofran 4 Mg/Udtablet Orally Disintegrating PO 04/18/25 22:21 Q6H PRN PRN NAUSEA Piperacillin Sod/Tazobactam Sod Confirm 03/19/25 19:25 Piperacillin/Tazobactam Sodium 3.375 Gm Vial Administered 03/19/25 19:26 Dose 3.375 gm IV .STK-MED ONE Assessment/Plan (1) Acute CHF Current Visit: Yes Status: Acute Assessment & Plan: - BNP 55737 - Continue Lasix IV 40 BID - I&O's, daily weight - Tele - EKG - RA 94% - Jardiance, Metoprolol - Chest CT: 1. Cardiomegaly with bilateral effusions favoring cardiac decompensation/CHF versus fluid overload. 2. Chronic findings including arteriosclerotic disease, chronic bony findings, and old granulomatous disease Code(s): I50.9 - HEART FAILURE, UNSPECIFIED (2) Constipation Current Visit: Yes Status: Acute Assessment & Plan: - As seen on CT abd/Pelvis: 1. Diffuse colonic fecal stasis with diarrhea. 2. Tiny gallstones/gravel better evaluated with sonogram if clinically warranted. 3. Chronic findings including arteriosclerotic disease and chronic bony findings. - Colace daily started Code(s): K59.00 - CONSTIPATION, UNSPECIFIED (3) PNA (pneumonia) Current Visit: Yes Status: Acute Assessment & Plan: - As seen on Chest CT - RA 96% - Ceftriaxone Azithromycin - Lung sounds clear Code(s): J18.9 - PNEUMONIA, UNSPECIFIED ORGANISM (4) Parapneumonic effusion Current Visit: Yes Status: Acute Assessment & Plan: - As seen on CT chest - Lasix IV BID Code(s): J18.9 - PNEUMONIA, UNSPECIFIED ORGANISM; J91.8 - PLEURAL EFFUSION IN OTHER CONDITIONS CLASSIFIED ELSEWHERE (5) Urinary tract infection Current Visit: Yes Status: Acute Assessment & Plan: - Ceftriaxone - UA reviewed - CBC, CMP reviewed - UC pending Code(s): N39.0 - URINARY TRACT INFECTION, SITE NOT SPECIFIED (6) Acute on chronic renal failure Current Visit: No Status: Chronic Assessment & Plan: - Creat 2.94, BL 2.56- improving - trend - F/U with nephro Code(s): N17.9 - ACUTE KIDNEY FAILURE, UNSPECIFIED; N18.9 - CHRONIC KIDNEY DISEASE, UNSPECIFIED (7) Diabetic infection of left foot Current Visit: No Status: Chronic Assessment & Plan: - With recent amputation at [place] - F/u with podiatry at [facility] wrapped Code(s): E11.628 - TYPE 2 DIABETES MELLITUS WITH OTHER SKIN COMPLICATIONS; L08.9 - LOCAL INFECTION OF THE SKIN AND SUBCUTANEOUS TISSUE, UNSP (8) Type 2 diabetes mellitus Current Visit: No Status: Chronic Qualifiers: Diabetes mellitus senior care insulin use: without senior care use Diabetes mellitus complication status: with kidney complications Diabetes mellitus complication detail: with chronic kidney disease Assessment & Plan: - A1C 6.29 02-21-25 - Continue jardiance (9) Uses LifeVest defibrillator Current Visit: Yes Status: Chronic Assessment & Plan: - In place - Follows cardiology at [place] Code(s): Z95.810 - PRESENCE OF AUTOMATIC (IMPLANTABLE) CARDIAC DEFIBRILLATOR (10) Thrombocytopenia Current Visit: Yes Status: Acute Assessment & Plan: - Plt 77- trend - Old labs reviewed- appears new (11) Anemia Current Visit: Yes Status: Chronic Qualifiers: Anemia type: due to chronic kidney disease Assessment & Plan: - 2:2 CKD - Chronic per old labs reviewed - Hgb dropped to 7.4 from 9.0 - Occult stool and - Iron labs reviewed VTE: Eliquis PPI: Protonix Next of KIN: D/C plan: Pending bed at [place] Code status: Full Plan of care time > 40 minutes Code(s): D64.9 - ANEMIA, UNSPECIFIED
[2025-03-20] MEDS: ECOTRIN 81 MG PO SCH (13:45)
[2025-03-20] MEDS: Apresoline 25 MG TABLET PO SCH (13:46)
[2025-03-20] MEDS: Acidophilus TABLET PO SCH (13:46)
[2025-03-20] MEDS: ELIQUIS 2.5 MG TABLET PO SCH (13:46)
[2025-03-20] MEDS: JARDIANCE PO SCH (13:48)
[2025-03-20] MEDS: Proscar 5 MG PO SCH (13:48)
[2025-03-20] MEDS: Docusate Sodium 100 MG PO SCH (13:53)
[2025-03-20] MEDS: Protonix 20MG Tablet PO SCH (17:43)
[2025-03-20 19:01] VITALS: BP 111/56; PULSE 93; TEMP 97.8
--- NOTE | 2025-03-20 19:06 | PCM.DS ---
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 He had recently been discharged from [facility] following a left foot partial amputation. A chest X-ray at the facility was concerning for pneumonia, and he was started on cefpodoxime without improvement. His brought him to the ER due to worsening fatigue, vomiting, and concern for dehydration. He denied abdominal pain, chest pain, or diarrhea. He was diagnosed with pneumonia, UTI, and CHF exacerbation. On 03/20 he was resting in bed and sleeping much of the time. His creatinine improved to 2.94 from admission, near his baseline of 2.56, consistent with chronic kidney disease. He remained in his LifeVest. Hemoglobin decreased from 9.0 to 7.4, and occult stool testing along with iron studies were ordered for further evaluation. Ceftriaxone and azithromycin were continued for treatment of pneumonia and UTI. Chest CT demonstrated cardiomegaly with bilateral effusions consistent with CHF or fluid overload, along with chronic arteriosclerotic and bony changes and old granulomatous disease. CT abdomen/pelvis showed diffuse colonic fecal stasis with diarrhea, tiny gallstones, and additional chronic findings. Head CT revealed nonacute senile changes. The patient continues to await transfer to [facility], which his strongly prefers as all of his specialists are located there; she declines transfer to any other facility. Lasix is being continued for CHF management. The patient remains clinically stable while. Tx to [facility] per pt and family request, bed open today. - Vitals & Intake/Output Vital Signs: Vital Signs Temperature 97.8 F 03/20/25 19:00 Pulse Rate 93 H 03/20/25 19:00 Respiratory Rate 17 03/20/25 19:00 Blood Pressure 111/56 03/20/25 19:00 O2 Sat by Pulse Oximetry 98 03/20/25 19:00 Intake & Output: Intake & Output 03/18/25 03/19/25 03/20/25 03/21/25 11:59 11:59 11:59 11:59 Intake Total 120 720 Output Total 750 1250 Balance -630 -530 Weight 68.3 kg - Lab Result Diagrams: 03/20/25 05:30 03/20/25 05:30 Lab Results-Last 24 Hrs: Lab Results-Last 24 Hours 03/19/25 03/19/25 03/19/25 Range/Units 15:25 15:25 23:04 WBC (4.23-9.07) x10^3/uL RBC (4.63-6.08) x10^6/uL Hgb (13.7-17.5) g/dL Hct (40.1-51.0) % MCV (79.0-92.2) fL MCH (25.7-32.2) pg MCHC (32.3-36.5) g/dL RDW (11.6-14.4) % Plt Count (163-337) x10^3/uL MPV (9.4-12.4) fL Gran % (34.0-67.9) % Immature Gran % (Auto) (0.001-0.429) % Nucleat RBC Rel Count (0.00-0.2) % Eos # (Auto) (0.04-0.54) x10^3/uL Immature Gran # (Auto) (0.001-0.031) x10^3u/L Absolute Lymphs (auto) (1.32-3.57) x10^3/uL Absolute Monos (auto) (0.30-0.82) x10^3/uL Absolute Nucleated RBC (0.00-0.012) x10^3u/L Lymphocytes % (21.8-53.1) % Monocytes % (5.3-12.2) % Eosinophils % (0.8-7.0) % Basophils % (0.2-1.2) % Absolute Granulocytes (1.78-5.38) x10^3/uL Basophils # (0.01-0.08) x10^3/uL Sodium (135-145) mmol/L Potassium (3.5-5.1) mmol/L Chloride (98-107) mmol/L Carbon Dioxide (22-30) mmol/L Anion Gap (5-15) MEQ/L BUN (9-20) mg/dL Creatinine (0.66-1.25) mg/dL Estimated GFR ML/MIN Glucose (74-106) mg/dL POC Glucometer 90 (74 to 106) mg/dL Calcium (8.4-10.2) mg/dL Iron (49-181) ug/dL TIBC (261-497) ug/dL Iron Saturation (20-39) % Ferritin (17.9-464) ng/mL Total Bilirubin (0.2-1.3) mg/dL AST (17-59) U/L ALT (0-50) U/L Alkaline Phosphatase (38-126) U/L NT-Pro-B Natriuret Pep 59280 (<300) pg/mL Serum Total Protein (6.3-8.2) g/dL Albumin (3.5-5.0) g/dL Vitamin B12 (239-931) pg/mL Folic Acid (2.76 - >20) ng/mL Slides for Path Review YES 03/20/25 03/20/25 03/20/25 Range/Units 05:30 05:30 05:30 WBC 5.7 (4.23-9.07) x10^3/uL RBC 2.39 L (4.63-6.08) x10^6/uL Hgb 7.4 L (13.7-17.5) g/dL Hct 22.3 L (40.1-51.0) % MCV 93.3 H (79.0-92.2) fL MCH 31.0 (25.7-32.2) pg MCHC 33.2 (32.3-36.5) g/dL RDW 15.2 H (11.6-14.4) % Plt Count 77 L (163-337) x10^3/uL MPV 10.7 (9.4-12.4) fL Gran % 77.4 H (34.0-67.9) % Immature Gran % (Auto) 0.4 (0.001-0.429) % Nucleat RBC Rel Count 0.0 (0.00-0.2) % Eos # (Auto) 0.28 (0.04-0.54) x10^3/uL Immature Gran # (Auto) 0.02 (0.001-0.031) x10^3u/L Absolute Lymphs (auto) 0.65 L (1.32-3.57) x10^3/uL Absolute Monos (auto) 0.30 (0.30-0.82) x10^3/uL Absolute Nucleated RBC 0.00 (0.00-0.012) x10^3u/L Lymphocytes % 11.5 L (21.8-53.1) % Monocytes % 5.3 (5.3-12.2) % Eosinophils % 4.9 (0.8-7.0) % Basophils % 0.5 (0.2-1.2) % Absolute Granulocytes 4.39 (1.78-5.38) x10^3/uL Basophils # 0.03 (0.01-0.08) x10^3/uL Sodium 136 (135-145) mmol/L Potassium 4.0 (3.5-5.1) mmol/L Chloride 100 (98-107) mmol/L Carbon Dioxide 26 (22-30) mmol/L Anion Gap 13.8 (5-15) MEQ/L BUN 83 H (9-20) mg/dL Creatinine 2.94 H (0.66-1.25) mg/dL Estimated GFR 20.1 ML/MIN Glucose 88 (74-106) mg/dL POC Glucometer (74 to 106) mg/dL Calcium 8.3 L (8.4-10.2) mg/dL Iron (49-181) ug/dL TIBC (261-497) ug/dL Iron Saturation (20-39) % Ferritin 409 (17.9-464) ng/mL Total Bilirubin 0.60 (0.2-1.3) mg/dL AST 30 (17-59) U/L ALT 24 (0-50) U/L Alkaline Phosphatase 70 (38-126) U/L NT-Pro-B Natriuret Pep 35692 (<300) pg/mL Serum Total Protein 5.4 L (6.3-8.2) g/dL Albumin 3.0 L (3.5-5.0) g/dL Vitamin B12 712 (239-931) pg/mL Folic Acid 6.83 (2.76 - >20) ng/mL Slides for Path Review YES 03/20/25 03/20/25 03/20/25 Range/Units 05:30 07:09 11:06 WBC (4.23-9.07) x10^3/uL RBC (4.63-6.08) x10^6/uL Hgb (13.7-17.5) g/dL Hct (40.1-51.0) % MCV (79.0-92.2) fL MCH (25.7-32.2) pg MCHC (32.3-36.5) g/dL RDW (11.6-14.4) % Plt Count (163-337) x10^3/uL MPV (9.4-12.4) fL Gran % (34.0-67.9) % Immature Gran % (Auto) (0.001-0.429) % Nucleat RBC Rel Count (0.00-0.2) % Eos # (Auto) (0.04-0.54) x10^3/uL Immature Gran # (Auto) (0.001-0.031) x10^3u/L Absolute Lymphs (auto) (1.32-3.57) x10^3/uL Absolute Monos (auto) (0.30-0.82) x10^3/uL Absolute Nucleated RBC (0.00-0.012) x10^3u/L Lymphocytes % (21.8-53.1) % Monocytes % (5.3-12.2) % Eosinophils % (0.8-7.0) % Basophils % (0.2-1.2) % Absolute Granulocytes (1.78-5.38) x10^3/uL Basophils # (0.01-0.08) x10^3/uL Sodium (135-145) mmol/L Potassium (3.5-5.1) mmol/L Chloride (98-107) mmol/L Carbon Dioxide (22-30) mmol/L Anion Gap (5-15) MEQ/L BUN (9-20) mg/dL Creatinine (0.66-1.25) mg/dL Estimated GFR ML/MIN Glucose (74-106) mg/dL POC Glucometer 90 97 (74 to 106) mg/dL Calcium (8.4-10.2) mg/dL Iron 152 (49-181) ug/dL TIBC 162 L (261-497) ug/dL Iron Saturation 94 H (20-39) % Ferritin (17.9-464) ng/mL Total Bilirubin (0.2-1.3) mg/dL AST (17-59) U/L ALT (0-50) U/L Alkaline Phosphatase (38-126) U/L NT-Pro-B Natriuret Pep (<300) pg/mL Serum Total Protein (6.3-8.2) g/dL Albumin (3.5-5.0) g/dL Vitamin B12 (239-931) pg/mL Folic Acid (2.76 - >20) ng/mL Slides for Path Review 03/20/25 Range/Units 16:12 WBC (4.23-9.07) x10^3/uL RBC (4.63-6.08) x10^6/uL Hgb (13.7-17.5) g/dL Hct (40.1-51.0) % MCV (79.0-92.2) fL MCH (25.7-32.2) pg MCHC (32.3-36.5) g/dL RDW (11.6-14.4) % Plt Count (163-337) x10^3/uL MPV (9.4-12.4) fL Gran % (34.0-67.9) % Immature Gran % (Auto) (0.001-0.429) % Nucleat RBC Rel Count (0.00-0.2) % Eos # (Auto) (0.04-0.54) x10^3/uL Immature Gran # (Auto) (0.001-0.031) x10^3u/L Absolute Lymphs (auto) (1.32-3.57) x10^3/uL Absolute Monos (auto) (0.30-0.82) x10^3/uL Absolute Nucleated RBC (0.00-0.012) x10^3u/L Lymphocytes % (21.8-53.1) % Monocytes % (5.3-12.2) % Eosinophils % (0.8-7.0) % Basophils % (0.2-1.2) % Absolute Granulocytes (1.78-5.38) x10^3/uL Basophils # (0.01-0.08) x10^3/uL Sodium (135-145) mmol/L Potassium (3.5-5.1) mmol/L Chloride (98-107) mmol/L Carbon Dioxide (22-30) mmol/L Anion Gap (5-15) MEQ/L BUN (9-20) mg/dL Creatinine (0.66-1.25) mg/dL Estimated GFR ML/MIN Glucose (74-106) mg/dL POC Glucometer 101 (74 to 106) mg/dL Calcium (8.4-10.2) mg/dL Iron (49-181) ug/dL TIBC (261-497) ug/dL Iron Saturation (20-39) % Ferritin (17.9-464) ng/mL Total Bilirubin (0.2-1.3) mg/dL AST (17-59) U/L ALT (0-50) U/L Alkaline Phosphatase (38-126) U/L NT-Pro-B Natriuret Pep (<300) pg/mL Serum Total Protein (6.3-8.2) g/dL Albumin (3.5-5.0) g/dL Vitamin B12 (239-931) pg/mL Folic Acid (2.76 - >20) ng/mL Slides for Path Review Micro Results-Entire Visit: Accuchecks Date 03/20/25 Date 03/20/25 Date 03/20/25 - Radiology Exams Ordered Rad Exams-Entire Visit: Radiology Procedures Category Date Time Status ABDOMEN AND PELVIS W/0 CONTRAS [CT] Stat Exams 03/19/25 17:27 Completed CHEST WITHOUT CONTRAST [CT] Stat Exams 03/19/25 17:27 Completed HEAD WITHOUT CONTRAST [CT] Stat Exams 03/19/25 17:26 Completed - Procedures and Test Procedures and Tests throughout Hospitalization: Therapy Orders & Screens 03/20/25 08:11 Respiratory Therapy Assessment DAILY Comment: Diagnosis: Acute CHF Discharge Exam General Appearance: no apparent distress, alert Neurologic Exam: alert, oriented x 3, cooperative, normal mood/affect, nml cerebellar function, sensation nml, No motor deficits Eye Exam: PERRL, EOMI, eyes nml inspection Ears, Nose, Throat Exam: normal ENT inspection, pharynx normal, moist mucous membranes Neck Exam: normal inspection, non-tender, supple, full range of motion Respiratory Exam: normal breath sounds, lungs clear, No respiratory distress Cardiovascular Exam: regular rate/rhythm, normal heart sounds Gastrointestinal/Abdomen Exam: soft, No tenderness, No mass Male Genitalia Exam: deferred Rectal Exam: deferred Back Exam: normal inspection, normal range of motion, No CVA tenderness, No vertebral tenderness Extremity Exam: normal inspection, normal range of motion Skin Exam: normal color, warm, dry Final Diagnosis/Problem List - Final Discharge Diagnosis/Problem (1) Acute CHF Current Visit: Yes Status: Acute Code(s): I50.9 - HEART FAILURE, UNSPECIFIED (2) Constipation Current Visit: Yes Status: Acute Code(s): K59.00 - CONSTIPATION, UNSPECIFIED (3) PNA (pneumonia) Current Visit: Yes Status: Acute Code(s): J18.9 - PNEUMONIA, UNSPECIFIED ORGANISM (4) Parapneumonic effusion Current Visit: Yes Status: Acute Code(s): J18.9 - PNEUMONIA, UNSPECIFIED ORGANISM; J91.8 - PLEURAL EFFUSION IN OTHER CONDITIONS CLASSIFIED ELSEWHERE (5) Urinary tract infection Current Visit: Yes Status: Acute Code(s): N39.0 - URINARY TRACT INFECTION, SITE NOT SPECIFIED (6) Acute on chronic renal failure Current Visit: No Status: Chronic Code(s): N17.9 - ACUTE KIDNEY FAILURE, UNSPECIFIED; N18.9 - CHRONIC KIDNEY DISEASE, UNSPECIFIED (7) Diabetic infection of left foot Current Visit: No Status: Chronic Code(s): E11.628 - TYPE 2 DIABETES MELLITUS WITH OTHER SKIN COMPLICATIONS; L08.9 - LOCAL INFECTION OF THE SKIN AND SUBCUTANEOUS TISSUE, UNSP (8) Type 2 diabetes mellitus Current Visit: No Status: Chronic (9) Uses LifeVest defibrillator Current Visit: Yes Status: Chronic Code(s): Z95.810 - PRESENCE OF AUTOMATIC (IMPLANTABLE) CARDIAC DEFIBRILLATOR (10) Thrombocytopenia Current Visit: Yes Status: Acute (11) Anemia Current Visit: Yes Status: Chronic Assessment & Plan: (1) Acute CHF Current Visit: Yes Status: Acute Assessment & Plan: - BNP 19599 - Continue Lasix IV 40 BID - I&O's, daily weight - Tele - EKG - RA 94% - Jardiance, Metoprolol - Chest CT: 1. Cardiomegaly with bilateral effusions favoring cardiac decompensation/CHF versus fluid overload. 2. Chronic findings including arteriosclerotic disease, chronic bony findings, and old granulomatous disease Code(s): I50.9 - HEART FAILURE, UNSPECIFIED (2) Constipation Current Visit: Yes Status: Acute Assessment & Plan: - As seen on CT abd/Pelvis: 1. Diffuse colonic fecal stasis with diarrhea. 2. Tiny gallstones/gravel better evaluated with sonogram if clinically warranted. 3. Chronic findings including arteriosclerotic disease and chronic bony findings. - Colace daily started Code(s): K59.00 - CONSTIPATION, UNSPECIFIED (3) PNA (pneumonia) Current Visit: Yes Status: Acute Assessment & Plan: - As seen on Chest CT - RA 96% - Ceftriaxone Azithromycin - Lung sounds clear Code(s): J18.9 - PNEUMONIA, UNSPECIFIED ORGANISM (4) Parapneumonic effusion Current Visit: Yes Status: Acute Assessment & Plan: - As seen on CT chest - Lasix IV BID Code(s): J18.9 - PNEUMONIA, UNSPECIFIED ORGANISM; J91.8 - PLEURAL EFFUSION IN OTHER CONDITIONS CLASSIFIED ELSEWHERE (5) Urinary tract infection Current Visit: Yes Status: Acute Assessment & Plan: - Ceftriaxone - UA reviewed - CBC, CMP reviewed - UC pending Code(s): N39.0 - URINARY TRACT INFECTION, SITE NOT SPECIFIED (6) Acute on chronic renal failure Current Visit: No Status: Chronic Assessment & Plan: - Creat 2.94, BL 2.56- improving - trend - F/U with nephro Code(s): N17.9 - ACUTE KIDNEY FAILURE, UNSPECIFIED; N18.9 - CHRONIC KIDNEY DISEASE, UNSPECIFIED (7) Diabetic infection of left foot Current Visit: No Status: Chronic Assessment & Plan: - With recent amputation at [facility] - F/u with podiatry at [facility] wrapped Code(s): E11.628 - TYPE 2 DIABETES MELLITUS WITH OTHER SKIN COMPLICATIONS; L08.9 - LOCAL INFECTION OF THE SKIN AND SUBCUTANEOUS TISSUE, UNSP (8) Type 2 diabetes mellitus Current Visit: No Status: Chronic Qualifiers: 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: without intermodal truck driver use Diabetes mellitus complication status: with kidney complications Diabetes mellitus complication detail: with chronic kidney disease Assessment & Plan: - A1C 6.29 02-21-25 - Continue jardiance (9) Uses LifeVest defibrillator Current Visit: Yes Status: Chronic Assessment & Plan: - In place - Follows cardiology at [facility] Code(s): Z95.810 - PRESENCE OF AUTOMATIC (IMPLANTABLE) CARDIAC DEFIBRILLATOR (10) Thrombocytopenia Current Visit: Yes Status: Acute Assessment & Plan: - Plt 77- trend - Old labs reviewed- appears new (11) Anemia Current Visit: Yes Status: Chronic Qualifiers: Anemia type: due to chronic kidney disease Assessment & Plan: - 2:2 CKD - Chronic per old labs reviewed - Hgb dropped to 7.4 from 9.0 - Occult stool and - Iron labs reviewed D/C plan of care time > 35 minutes Code(s): D64.9 - ANEMIA, UNSPECIFIED - Discharge Discharge Date: 03/20/25 Disposition: DC TO [facility] Condition: Fair Prescriptions: New Docusate Sodium 100 mg [Docusate Sodium 100 MG] 100 mg PO DAILY cap Ceftriaxone Sodium [ROCEPHIN 1 GM / 100 ML NaCl] 1 gm IV Q24H10 iv piggy Azithromycin Inj [Zithromax IV] 500 mg IV Q24H10 Continue Losartan Potassium 25 mg PO DAILY Aspirin 81 mg PO DAILY Isosorbide Mononitrate 30 mg [Imdur 30 MG] 30 mg PO BREAKFAST Hydralazine HCl 10 mg PO TID Furosemide 40 mg [Lasix 40 MG] 40 mg PO DAILY Finasteride 5 mg [Proscar 5 MG] 5 mg PO DAILY Atorvastatin Calcium 40 mg PO HS Apixaban [Eliquis 2.5 mg Tablet] 2.5 mg PO BID Metoprolol Succinate 25 mg Xl* [Toprol-Xl 25MG Tablets] 25 mg PO HS Saccharomyces Boulardii 250 mg PO BID Budesonide/Formoterol Fumarate [Budesonide-Formoterol 160-4.5] 2 puffs IH BID Empagliflozin [Jardiance] 10 mg PO DAILY Acetaminophen 325 mg [Tylenol 325 mg] 650 mg PO Q4HPRN PRN PRN Reason: Pain Fluticasone Propion/Salmeterol [Fluticasone-Salmeterol 250-50] 1 each IH BID Ondansetron ODT 4 MG [Zofran Odt 4 mg] 4 mg PO Q6H PRN PRN PRN Reason: Nausea Follow up with: MARU SPRING MD [Primary Care Provider, [facility]]
[2025-03-20 20:29] VITALS: RESP 16; O2SAT 93
[2025-03-20] MEDS ORDERED: ZOCOR 20MG PO SCH (22:00)
[2025-03-20] MEDS ORDERED: Toprol-Xl 25MG Tablets PO SCH (22:00)
== END 2025-03-20 20:55 | disposition home or self-care (01) ==
LOC: ED 14:49 → MED SURG 21:31
PROVIDERS: ADMIT Student in an Organized Health Care Education/Training Program; ATTEND Student in an Organized Health Care Education/Training Program
DX: I12.9 Hypertensive chronic kidney disease with stage 1 through stage 4 chronic kidney disease, or unspecified chronic kidney disease (principal); E11.22 Type 2 diabetes mellitus with diabetic chronic kidney disease; N17.9 Acute kidney failure, unspecified; N18.4 Chronic kidney disease, stage 4 (severe); I50.9 Heart failure, unspecified; K59.00 Constipation, unspecified; J18.9 Pneumonia, unspecified organism; J91.8 Pleural effusion in other conditions classified elsewhere; N39.0 Urinary tract infection, site not specified; E11.628 Type 2 diabetes mellitus with other skin complications; L08.9 Local infection of the skin and subcutaneous tissue, unspecified; Z95.810 Presence of automatic (implantable) cardiac defibrillator; D69.6 Thrombocytopenia, unspecified; D64.9 Anemia, unspecified; M86.9 Osteomyelitis, unspecified; Z79.899 Other long term (current) drug therapy; Z79.01 Long term (current) use of anticoagulants; Z98.890 Other specified postprocedural states